=== PATIENT | female | born 1930 | race Caucasian/White ===

== ENCOUNTER 2016-07-10 08:40 | Outpatient (CLI) | payer MEDICARE | END 2016-07-10 08:41 | disposition home or self-care (01) | DX: I10 Essential (primary) hypertension (principal); E78.5 Hyperlipidemia, unspecified; M81.0 Age-related osteoporosis without current pathological fracture ==

== ENCOUNTER 2018-02-27 04:04 | Outpatient (CLI) | payer MEDICARE | END 2018-02-27 04:05 | disposition critical access hospital (66) | LOC: EMS 04:04 | PROVIDERS: ATTEND Surgery | DX: R06.02 Shortness of breath (principal) | CPT/HCPCS: A0425; A0427 ==

== ENCOUNTER 2018-02-27 04:22 | Emergency (ER) | payer MEDICARE ==
--- NOTE | 2018-02-27 04:44 | ED Physician Documentation ---
History of Present Illness - Stated complaint Stated Complaint: SOA - Chief complaint Chief Complaint: Resp - Additonal information Additional information: 87-year-old female presents the emergency department with dyspnea on exertion which started this morning. The patient called EMS and EMS found the patient quite dyspneic and the patient was found to be hypoxic at 85% and required supplemental oxygen. Presently, the patient feels improved. The patient denies peripheral edema. The patient denies chest pain or any arm pain or neck pain. The patient denies recent URI symptoms, fevers, cough or peripheral edema. Symptoms are described as severe. No specific triggering factors. No other associated symptoms Review of Systems Constitutional: denies: Fever Eyes: denies: Discharge Ears: denies: Ear pain Nose: denies: Congestion Throat: denies: Sore throat Cardiac: denies: Chest pain / pressure Respiratory: reports: Dyspnea GI: denies: Abdominal Pain : denies: Dysuria Skin: denies: Lesions Musculoskeletal: denies: Neck pain Neurologic: denies: Generalized weakness Psychiatric: denies: Hallucinations Immunocompromised: denies: Chemotherapy PD PAST MEDICAL HISTORY - Past Medical History Cardiovascular: None Respiratory: None Endocrine/Autoimmune: None Psych: None Musculoskeletal: Osteoporosis - Past Surgical History General: Appendectomy, 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 - Present Medications Home Medications: Ambulatory Orders Medication Instructions Recorded Confirmed Brimonidine Tartrate 10 ml OP 02/27/18 02/27/18 Hydrocodone/Acetaminophen [Vicodin 1 each PO 02/27/18 5-300 mg Tablet] Prednisolone [Millipred] 4 mg PO 02/27/18 Spironolactone 25 mg PO 02/27/18 hydrOXYzine HCl [Hydroxyzine HCl] 25 mg PO 02/27/18 raNITIdine [Zantac] 150 mg PO DAILY 02/27/18 02/27/18 - Allergies Allergies/Adverse Reactions: Allergies Allergy/AdvReac Type Severity Reaction Status Date / Time No Known Drug Allergies Allergy Verified 02/27/18 04:28 PD ED PE NORMAL - General General: Alert and oriented X 3. No: No acute distress (Frail 87-year-old female who appears acutely short of breath) - HEENT HEENT: Atraumatic, PERRL, EOMI, Ears normal - Neck Neck: Supple, no meningeal sign - Cardiac Cardiac: RRR, Strong equal pulses - Respiratory Respiratory: No respiratory distress Results - Vitals Vitals: Vital Signs - 24 hr 02/27/18 02/27/18 02/27/18 04:23 04:37 04:51 Temperature 36.8 C Heart Rate 110 H 112 H 109 H Respiratory 37 H 25 H 32 H Rate Blood Pressure 132/110 H 132/102 H 148/74 H O2 Saturation 93 92 93 02/27/18 02/27/18 05:28 05:50 Temperature Heart Rate 103 H 102 H Respiratory 20 24 Rate Blood Pressure 160/112 H O2 Saturation 92 96 Oxygen O2 Source Nasal cannula Oxygen Flow Rate 3 - EKG (time done) 04:31 Rate: Rate (enter#) Rhythm: Sinus tachycardia Intervals: Normal [place] QRS: Normal Ischemia: Non specific changes - Labs Labs: Laboratory Tests 02/27/18 02/27/18 02/27/18 04:40 04:45 04:45 WBC 12.8 H RBC 4.77 Hgb 14.2 Hct 43.9 MCV 92.0 MCH 29.8 MCHC 32.4 RDW 13.7 Plt Count 241 MPV 7.9 Neut # (Auto) 9.7 H Lymph # (Auto) 1.3 L Glynn # (Auto) 1.2 H Eos # (Auto) 0.5 Baso # (Auto) 0.2 H Absolute Nucleated RBC 0.01 Nucleated RBC % 0.0 PT 11.1 INR 1.0 APTT 23.7 L VBG pH VBG pCO2 VBG pO2 VBG HCO3 VBG Total CO2 VBG O2 Saturation VBG Base Excess VBG Total Hgb 15.3 VBG Oxyhemoglobin 82 L VBG Carboxyhemoglobin 1.4 VBG Methemoglobin 0.1 Sodium Potassium Chloride Carbon Dioxide Anion Gap BUN Creatinine Estimated GFR (MDRD) Glucose Lactic Acid Calcium Total Bilirubin AST ALT Alkaline Phosphatase Total Creatine Kinase Troponin I B-Natriuretic Peptide Total Protein Albumin Globulin Albumin/Globulin Ratio Lipase 02/27/18 02/27/18 02/27/18 04:45 04:45 04:45 WBC RBC Hgb Hct MCV MCH MCHC RDW Plt Count MPV Neut # (Auto) Lymph # (Auto) Glynn # (Auto) Eos # (Auto) Baso # (Auto) Absolute Nucleated RBC Nucleated RBC % PT INR APTT VBG pH VBG pCO2 VBG pO2 VBG HCO3 VBG Total CO2 VBG O2 Saturation VBG Base Excess VBG Total Hgb VBG Oxyhemoglobin VBG Carboxyhemoglobin VBG Methemoglobin Sodium 140 Potassium 4.0 Chloride 105 Carbon Dioxide 25 Anion Gap 10.0 BUN 29 H Creatinine 1.3 H Estimated GFR (MDRD) 39 L Glucose 105 H Lactic Acid Calcium 9.5 Total Bilirubin 0.6 AST 23 ALT 15 Alkaline Phosphatase 45 Total Creatine Kinase 54 Troponin I 0.42 B-Natriuretic Peptide 255 H Total Protein 6.4 L Albumin 3.8 Globulin 2.6 Albumin/Globulin Ratio 1.5 Lipase 35 02/27/18 02/27/18 04:45 04:45 WBC RBC Hgb Hct MCV MCH MCHC RDW Plt Count MPV Neut # (Auto) Lymph # (Auto) Glynn # (Auto) Eos # (Auto) Baso # (Auto) Absolute Nucleated RBC Nucleated RBC % PT INR APTT VBG pH 7.299 L VBG pCO2 49.4 VBG pO2 50.0 H VBG HCO3 23.7 VBG Total CO2 25.2 VBG O2 Saturation 83.6 H VBG Base Excess -3.2 L VBG Total Hgb VBG Oxyhemoglobin VBG Carboxyhemoglobin VBG Methemoglobin Sodium Potassium Chloride Carbon Dioxide Anion Gap BUN Creatinine Estimated GFR (MDRD) Glucose Lactic Acid 1.9 Calcium Total Bilirubin AST ALT Alkaline Phosphatase Total Creatine Kinase Troponin I B-Natriuretic Peptide Total Protein Albumin Globulin Albumin/Globulin Ratio Lipase - Rads (name of study) CXR Radiology: Final report received (IMPRESSION: Stable negative 2-view chest radiography. ) PD MEDICAL DECISION MAKING - ED course ED course: The patient's shortness of breath appears to be secondary to acute coronary syndrome. The patient was treated in the emergency department with aspirin, Nitropaste and Lovenox and oxygen. On reevaluation the patient is resting comfortably and appears to be improved. The case was discussed with our hospitalist who recommends transfer to a center with cardiology for further management of the patient's acute coronary syndrome. The case was discussed with the hospitalist at [facility] Dr. Gomez who accepts the patient onto his service. - Sepsis Event Vital Signs: Vital Signs - 24 hr 02/27/18 02/27/18 02/27/18 04:23 04:37 04:51 Temperature 36.8 C Heart Rate 110 H 112 H 109 H Respiratory 37 H 25 H 32 H Rate Blood Pressure 132/110 H 132/102 H 148/74 H O2 Saturation 93 92 93 02/27/18 02/27/18 05:28 05:50 Temperature Heart Rate 103 H 102 H Respiratory 20 24 Rate Blood Pressure 160/112 H O2 Saturation 92 96 Oxygen O2 Source Nasal cannula Oxygen Flow Rate 3 Departure - Departure Disposition: 02 Transfer Acute Care Hosp Clinical Impression: ACS (acute coronary syndrome), Hypoxia, ALTMAN (dyspnea on exertion) Condition: Fair
[2018-02-27 05:12] LABS: VBG BASE EXCESS -3.2 mmol/L (-2 - +2); VBG PCO2 49.4 mmHg (41-51); VBG PH 7.299 (7.31-7.41); VBG TOTAL CO2 25.2 mmol/L (24-29)
[2018-02-27 05:14] LABS: PT - PROTHROMBIN TIME 11.1 secs (9.9-12.6)
[2018-02-27 05:17] LABS: BASOPHILS # (AUTO) 0.2 10^3/uL (0.0-0.1); BASOPHILS % (AUTO) 1.2 %; EOSINOPHILS # (AUTO) 0.5 10^3/uL (0.0-0.7); EOSINOPHILS % (AUTO) 3.9 %; HGB - HEMOGLOBIN 14.2 g/dL (12.0-16.0); LYMPHOCYTES # (AUTO) 1.3 10^3/uL (1.5-3.5); LYMPHOCYTES % (AUTO) 10.1 %; MEAN CORPUSCULAR HEMOGLOBIN 29.8 pg (27.0-31.0); MEAN CORPUSCULAR HGB CONC 32.4 g/dL (32.0-36.0); MEAN PLATELET VOLUME 7.9 fL (7.9-10.8); MONOCYTES # (AUTO) 1.2 10^3/uL (0.0-1.0); MONOCYTES % (AUTO) 9.2 %; NEUTROPHILS # (AUTO) 9.7 10^3/uL (1.5-6.6); NEUTROPHILS % (AUTO) 75.6 %; PLT - PLATELET COUNT 241 10^3/uL (130-450); RED BLOOD COUNT 4.77 10^6/uL (4.20-5.40); RED CELL DISTRIBUTION WIDTH 13.7 % (12.0-15.0); WHITE BLOOD COUNT 12.8 x10^3/uL (4.8-10.8)
[2018-02-27 05:19] LABS: ALBUMIN 3.8 g/dL (3.2-5.5); ALBUMIN/GLOBULIN RATIO 1.5 (1.0-2.2); BILIRUBIN,TOTAL 0.6 mg/dL (0.2-1.0); CALCIUM 9.5 mg/dL (8.5-10.3); CREATININE 1.3 mg/dL (0.4-1.0); TOTAL PROTEIN 6.4 g/dL (6.7-8.2)
[2018-02-27] MEDS ORDERED: ENOXAPARIN 60 MG/0.6 ML SYRINGE SUBQ STA (05:29)
[2018-02-27] MEDS ORDERED: NITROGLYCERIN 2% PASTE TOP STA (05:29)
[2018-02-27] MEDS ORDERED: ASPIRIN 325 MG TABLET PO STA (05:29)
--- NOTE | 2018-02-27 05:30 | XRAY Report ---
Reason: sob Procedure Date: 02/27/2018 Accession Number: [id number] / [id number] Procedure: XR - Chest 2 View X-Ray CPT Code: 63421 FULL RESULT: EXAM: CHEST RADIOGRAPHY EXAM DATE: 02/27/2018 05:23 AM. CLINICAL HISTORY: Short of breath COMPARISON: XR CHEST PA AND LAT 01/08/2010 4:07 AM. TECHNIQUE: 2 views. FINDINGS: Lungs/Pleura: No focal opacities evident. No pleural effusion. No pneumothorax. Normal volumes. Mediastinum: Heart and mediastinal contours are unremarkable. Other: None. IMPRESSION: Stable negative 2-view chest radiography. RADIA
[2018-02-27 07:27] VITALS: BP 125/90
== END 2018-02-27 07:40 | disposition short-term general hospital (02) ==
LOC: EDUNIT# → ED 04:22
DX: I24.9 Acute ischemic heart disease, unspecified (principal); R09.02 Hypoxemia; R06.00 Dyspnea, unspecified; R00.0 Tachycardia, unspecified
CPT/HCPCS: 36415; 71046; 80053; 82375; 82550; 82803; 83605; 83690; 83880; 84484; 85025; 85610; 85730; 87040; 93005; 96372; 99284; 99285; A9270; J1650

== ENCOUNTER 2018-12-07 14:30 | Outpatient (CLI) | payer MEDICARE ==
--- NOTE | 2018-12-07 15:41 | XRAY Report ---
Reason: DYSPNEA ON EXERTION Procedure Date: 12/07/2018 Accession Number: [id number] / [id number] Procedure: WCP - Chest 2 View X-Ray CPT Code: 29158 FULL RESULT: EXAM: CHEST RADIOGRAPHY EXAM DATE: 12/07/2018 02:41 PM. CLINICAL HISTORY: DYSPNEA ON EXERTION. COMPARISON: 02/27/2018. TECHNIQUE: 2 views. FINDINGS: Lungs/Pleura: No focal opacities evident. No pleural effusion. No pneumothorax. Normal volumes. Mediastinum: Heart and mediastinal contours are unremarkable. Other: Multilevel degenerative change in the spine. Calcification in the aorta. IMPRESSION: Clear lungs. No acute findings. RADIA
== END 2018-12-07 14:31 | disposition home or self-care (01) ==
LOC: DI.WCP 14:30
PROVIDERS: ATTEND Family Medicine
DX: R06.09 Other forms of dyspnea (principal)
CPT/HCPCS: 71046

== ENCOUNTER 2018-12-16 07:45 | Outpatient (CLI) | payer MEDICARE | END 2018-12-16 07:46 | disposition home or self-care (01) | LOC: DI 07:45 | PROVIDERS: ATTEND Family Medicine | DX: I26.99 Other pulmonary embolism without acute cor pulmonale (principal); I27.20 Pulmonary hypertension, unspecified; I07.1 Rheumatic tricuspid insufficiency | CPT/HCPCS: 93306 ==

== ENCOUNTER 2019-03-23 09:45 | Outpatient (CLI) | payer MEDICARE ==
--- NOTE | 2019-03-24 10:46 | MRI Report ---
Reason: LOW BACK PAIN Procedure Date: 03/23/2019 Accession Number: [id number] / [id number] Procedure: MRI - Lumbar Spine W/O CPT Code: FULL RESULT: EXAM: MRI LUMBAR SPINE WITHOUT CONTRAST EXAM DATE: 03/23/2019 11:16 AM. CLINICAL HISTORY: LOW BACK PAIN. COMPARISON: Lumbar spine MRI 04/25/2014. TECHNIQUE: Multiplanar, multisequence T1-weighted and fluid-sensitive sequences of the lumbar spine from T12 to S1 without contrast. Other: None. FINDINGS: Spinal Canal: The conus terminates at L2. The conus medullaris and cauda equina are unremarkable. Alignment: Grade 1 retrolisthesis of L1 and L2, L2 on L3, and L3 on L4, unchanged. Bone Marrow: Five [id number] lumbar vertebral bodies are assumed. No fractures. No osseous lesions. Mixed Modic type I and II endplate degenerative changes throughout the lumbar spine. Disk Levels/Facets: T12-L1: Shallow broad-based disk bulge and moderate facet arthropathy results in mild central canal stenosis without foraminal stenosis. L1-L2: Severe intervertebral disk height loss. Shallow broad-based disk-osteophyte complex and moderate facet arthropathy results in mild central canal and bilateral foraminal stenosis. Unchanged. L2-L3: Severe intervertebral disk height loss. Broad-based disk-osteophyte complex and severe facet arthropathy results in mild central canal and bilateral foraminal stenosis. Unchanged. L3-L4: Severe intervertebral disk height loss. Shallow broad-based disk-osteophyte complex and severe right facet arthropathy results in mild central canal stenosis with moderate right and mild left foraminal stenosis. Disk material impinges upon the exiting right L3 nerve root. Unchanged. L4-L5: Severe intervertebral disk height loss. A broad-based disk-osteophyte complex asymmetric to the left foraminal region and moderate facet arthropathy results in mild central canal stenosis with moderate left and mild right foraminal stenosis. Unchanged. L5-S1: Severe intervertebral disk height loss. Broad-based disk-osteophyte complex and moderate facet arthropathy results in new moderate right and mild left foraminal stenosis without central canal stenosis. Musculature: Normal. No edema or fatty atrophy. Other: The partially visualized retroperitoneum is unremarkable. IMPRESSION: 1. Moderate to severe multilevel lumbar degenerative disk disease and facet arthropathy, progressed at the level of L5-S1, where there is now moderate right and mild left foraminal stenosis, but otherwise essentially unchanged. There is mild central canal stenosis from T12-L4. Foraminal stenosis is moderate on the right at L3-L4, where disk material impinges upon the exiting right L3 nerve root, moderate on the left at L4-L5, and moderate on the right at L5-S1. Comment: The following findings are so common in adults without low back pain that while we report their presence, they must be interpreted with caution and in the context of the clinical situation. (Reference Evank et al, Spine 2001) Prevalence of findings in patients without low back pain: Disk degeneration (any evidence): 92% Disk desiccation/T2 signal loss: 83% Disk height loss: 56% Disk bulge: 64% Disk protrusion: 32% Annular tear/high intensity zone: 38% RADIA
== END 2019-03-23 09:46 | disposition home or self-care (01) ==
LOC: DI 09:45
PROVIDERS: ATTEND Physical Medicine & Rehabilitation
DX: M51.36 Other intervertebral disc degeneration, lumbar region (principal); M48.061 Spinal stenosis, lumbar region without neurogenic claudication; M51.37 Other intervertebral disc degeneration, lumbosacral region; M48.07 Spinal stenosis, lumbosacral region; M47.816 Spondylosis without myelopathy or radiculopathy, lumbar region; M47.817 Spondylosis without myelopathy or radiculopathy, lumbosacral region; M43.16 Spondylolisthesis, lumbar region
CPT/HCPCS: 72148

== ENCOUNTER 2019-06-14 11:11 | Outpatient (CLI) | payer MEDICARE | END 2019-06-14 11:12 | disposition critical access hospital (66) | LOC: EMS 11:11 | PROVIDERS: ATTEND Surgery | DX: R06.02 Shortness of breath (principal); R07.0 Pain in throat; R05 Cough | CPT/HCPCS: A0425; A0427 ==

== ENCOUNTER 2019-06-14 11:31 | Observation (INO) | payer MEDICARE ==
--- NOTE | 2019-06-14 11:51 | ED Physician Documentation ---
PD HPI DYSPNEA - Stated complaint Stated Complaint: SOA - Chief complaint Chief Complaint: Resp - History obtained from History obtained from: Patient, EMS - History of Present Illness Timing - onset: How many days ago ( She has had a cough wheezing and dyspnea over the last several days. She had recently been visiting in [place] in May and developed trouble breathing while there. It was suburb of [facility]. Her daughter says she was hospitalized and diagnosed with congestive failure. As she improved it was suggested that she return home away from the [facility]. She was started on spironolactone. Otherwise no BP med or such. She has been home now for over a week and started with some coughing wheezing and dyspnea the last several days. She has not had any pedal edema. She does have a prior history of A. fib I believe and had been on a blood thinner and that was changed to Eliquis from Pradaxa.) Timing - onset during: Light activity Timing - details: Gradual onset, Still present, Waxing and waning Inciting event(s): URI, Immobilization/travel. No: Out of meds, Exercise Improved by: Rest. No: Sitting up Associated symptoms: Cough, Wheezing, Bilateral edema (She had some leg edema while in [place] but that has improved since returning home.). No: Fever, Hemoptysis, Chest pain / discomfort Recently seen: Emergency Dept, Admitted (She was in the hospital in [place]. Still trying to track down old records. Reportedly diagnosed with CHF.) Review of Systems Constitutional: reports: Myalgias, Fatigue. denies: Fever Nose: reports: Congestion Throat: denies: Sore throat Cardiac: denies: Chest pain / pressure, Palpitations Respiratory: reports: Dyspnea, Cough, Wheezing GI: denies: Abdominal Pain, Nausea, Vomiting, Diarrhea, Bloody / black stool Musculoskeletal: denies: Neck pain, Back pain Neurologic: reports: Generalized weakness. denies: Focal weakness, Numbness, Near syncope, Altered mental status, Headache Endocrine: denies: Weight loss Immunocompromised: denies: Immunocompromised PD PAST MEDICAL HISTORY - Past Medical History Cardiovascular: Pulmonary embolism (December 2018 on Pradaxa,a nd changed to Eliquis in [place] few weeks ago. 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 - Present Medications Home Medications: Ambulatory Orders Medication Instructions Recorded Confirmed Brimonidine Tartrate 10 ml OP 02/27/18 02/27/18 Hydrocodone/Acetaminophen [Vicodin 1 each PO 02/27/18 5-300 mg Tablet] Prednisolone [Millipred] 4 mg PO 02/27/18 Spironolactone 25 mg PO 02/27/18 hydrOXYzine HCL [Hydroxyzine HCl] 25 mg PO 02/27/18 raNITIdine [Zantac] 150 mg PO DAILY 02/27/18 02/27/18 - Allergies Allergies/Adverse Reactions: Allergies Allergy/AdvReac Type Severity Reaction Status Date / Time No Known Drug Allergies Allergy Verified 06/14/19 11:40 - Social History Does the pt smoke?: No Smoking Status: Never smoker Does the pt drink ETOH?: No Does the pt have substance abuse?: No - POLST Patient has POLST: No PD ED PE NORMAL - Vitals Vital signs reviewed: Yes - General General: Alert and oriented X 3, Well developed/nourished, Other (She is having audible wheeze and also auscultatory wheeze diffusely without any coarse sounds. There is minimal leg edema in both ankles. There is no calf tenderness. There is skin tenderness generally. She is tachycardic and an increased respiratory rate. She is not hypoxic.) - HEENT HEENT: Pharynx benign. No: Moist mucous membranes - Neck Neck: Supple, no meningeal sign, No adenopathy, No JVD - Cardiac Cardiac: No murmur. No: RRR (regular but tachycardic) - Respiratory Respiratory: No: Clear bilaterally (Diffuse expiratory wheezing. There is some inspiratory wheezing is noted as well. There is no coarse sounds. There are no fine crackles. She is not orthopneic.) - Abdomen Abdomen: Normal bowel sounds, Soft, Non tender - Female Female : Deferred - Rectal Rectal: Other (Stool is brown-colored without any note of blood or melena. Guaiac to our card is obtained and sent to the lab) - Back Back: No CVA TTP - Derm Derm: Normal color - Extremities Extremities: No tenderness to palpate, Normal ROM s pain, No calf tenderness / cord (No calf tenderness per se. She has tenderness on the pretibial area on both sides and her daughter says she commonly has leg tenderness in that area. There is minimal edema in both ankles.) - Neuro Neuro: Alert and oriented X 3, No sensory deficit, Normal speech Results - Vitals Vitals: Vital Signs - 24 hr 06/14/19 06/14/19 06/14/19 11:34 12:28 13:42 Temperature 36.1 C L Heart Rate 107 H 114 H 107 H Respiratory 32 H 36 H 32 H Rate Blood Pressure 151/79 H O2 Saturation 100 06/14/19 06/14/19 14:37 15:45 Temperature Heart Rate 106 H 108 H Respiratory 26 H 26 H Rate Blood Pressure 135/46 H O2 Saturation 94 Oxygen O2 Source Room air - EKG (time done) 12:12 Rate: Rate (enter#) (104) Rhythm: Sinus tachycardia Talmage: Normal Intervals: Normal CA QRS: Normal Ischemia: Normal ST segments. No: ST elevation c/w ischemia, ST depression - Labs Labs: Microbiology 06/14/19 14:56 Occult Blood - Final Stool Laboratory Tests 06/14/19 06/14/19 06/14/19 12:24 12:24 12:24 WBC 10.4 RBC 4.05 L Hgb 8.0 L Hct 28.3 L MCV 69.9 L MCH 19.8 L MCHC 28.3 L RDW 18.7 H Plt Count 586 H MPV 9.1 Neut # (Auto) 7.5 H Lymph # (Auto) 1.2 L Howell # (Auto) 1.1 H Eos # (Auto) 0.4 Baso # (Auto) 0.1 Absolute Nucleated RBC 0.00 Nucleated RBC % 0.0 Manual Slide Review Indicated WBC Morphology NORMAL APPEARANCE Platelet Estimate INCREASED (>450,000) Platelet Morphology NORMAL APPEARANCE RBC Morph Micro Appear 1+ TEARDROP CELLS PT 17.4 H INR 1.6 H APTT 28.9 Sodium 138 Potassium 4.1 Chloride 105 Carbon Dioxide 24 Anion Gap 9.0 BUN 27 H Creatinine 1.9 H Estimated GFR (MDRD) 25 L Glucose 118 H Calcium 9.5 Magnesium 2.0 Total Bilirubin 0.5 AST 25 ALT 24 Alkaline Phosphatase 55 Troponin I High Sens B-Natriuretic Peptide Total Protein 6.3 L Albumin 3.3 Globulin 3.0 Albumin/Globulin Ratio 1.1 Lipase 45 RSV Rapid 01/08/20 01/08/20 01/08/20 12:24 12:24 14:33 WBC RBC Hgb Hct MCV MCH MCHC RDW Plt Count MPV Neut # (Auto) Lymph # (Auto) Howell # (Auto) Eos # (Auto) Baso # (Auto) Absolute Nucleated RBC Nucleated RBC % Manual Slide Review WBC Morphology Platelet Estimate Platelet Morphology RBC Morph Micro Appear PT INR APTT Sodium Potassium Chloride Carbon Dioxide Anion Gap BUN Creatinine Estimated GFR (MDRD) Glucose Calcium Magnesium Total Bilirubin AST ALT Alkaline Phosphatase Troponin I High Sens 18.7 H* B-Natriuretic Peptide 97 Total Protein Albumin Globulin Albumin/Globulin Ratio Lipase RSV Rapid Negative - Rads (name of study) chest xray Radiology: Prelim report reviewed (No infiltrates nor signs of congestive failure. Normal-appearing chest x-ray), See rad report PD MEDICAL DECISION MAKING - ED course Complexity details: reviewed results (The patient does not have any signs of CHF based on exam nor chest x-ray. Her BNP is also normal. She does have history of pulmonary emboli and traveled recently but does not have any calf tenderness and is already on a anticoagulant Eliquis. Her creatinine level is elevated and her GFR is very low so I did not do any angiogram at this time. She had been taking her anticoagulant. Her BNP and troponin are both negative. She does have cough with progressive wheezing and dyspnea and sounds clinically more likely to be a viral illness. She does have some stepwise improvement with nebulizer treatments. She is given a dose of steroids as well as medication for cough. She is not hypoxic but still has general wheezing. Her breathing rate has improved and she is appearing more comfortable. I still do not think she is clinically improved well enough. She is anemic And the initial guaiac card from the lab says occult positive blood.), considered differential (CHF vs URI/wheezing vs COPD. On anticoag and gradual symptoms for few days. Should not be PE. ), d/w patient Departure - Departure Disposition: ED Place in Observation Clinical Impression: Wheezing, Anticoagulant long-term use, Stool guaiac positive Dyspnea Qualifiers: Dyspnea type: shortness of breath Qualified Code(s): R06.02 - Shortness of yang th Anemia Qualifiers: Anemia type: unspecified type Qualified Code(s): D64.9 - Anemia, unspecified Upper respiratory infection Qualifiers: URI type: unspecified URI Qualified Code(s): J06.9 - Acute upper respiratory infection, unspecified Condition: Stable Record reviewed to determine appropriate education?: Yes
[2019-06-14] MEDS ORDERED: ALBUTEROL NEB 2.5 MG/3 ML INH STA ×3 (12:15→15:59)
[2019-06-14 12:29] LABS: BASOPHILS # (AUTO) 0.1 10^3/uL (0.0-0.1); BASOPHILS % (AUTO) 0.6 %; EOSINOPHILS # (AUTO) 0.4 10^3/uL (0.0-0.7); EOSINOPHILS % (AUTO) 3.7 %; LYMPHOCYTES # (AUTO) 1.2 10^3/uL (1.5-3.5); LYMPHOCYTES % (AUTO) 11.4 %; MEAN CORPUSCULAR HEMOGLOBIN 19.8 pg (27.0-31.0); MEAN CORPUSCULAR HGB CONC 28.3 g/dL (32.0-36.0); MEAN CORPUSCULAR VOLUME 69.9 fL (81.0-99.0); MEAN PLATELET VOLUME 9.1 fL (7.9-10.8); MONOCYTES # (AUTO) 1.1 10^3/uL (0.0-1.0); MONOCYTES % (AUTO) 10.6 %; NEUTROPHILS # (AUTO) 7.5 10^3/uL (1.5-6.6); NEUTROPHILS % (AUTO) 72.3 %; PLT - PLATELET COUNT 586 10^3/uL (130-450); RED BLOOD COUNT 4.05 10^6/uL (4.20-5.40); RED CELL DISTRIBUTION WIDTH 18.7 % (12.0-15.0); WHITE BLOOD COUNT 10.4 x10^3/uL (4.8-10.8)
[2019-06-14 12:53] LABS: INR 1.6 (0.8-1.2); PT - PROTHROMBIN TIME 17.4 secs (9.9-12.6)
[2019-06-14 13:00] LABS: PARTIAL THROMBOPLASTIN TIME 28.9 secs (24.9-33.3)
[2019-06-14] MEDS ORDERED: CYCLOBENZAPRINE 10 MG TABLET PO STA (13:23)
[2019-06-14] MEDS ORDERED: IPRATROPIUM/ALBUTEROL 3 ML NEB INH STA (13:23)
[2019-06-14] MEDS ORDERED: DEXAMETHASONE 10 MG/ML VIAL IVP STA (13:23)
[2019-06-14 13:27] LABS: PLATELET MORPHOLOGY NORMAL APPEARANCE (NORMAL)
[2019-06-14 13:28] LABS: ALBUMIN 3.3 g/dL (3.2-5.5); ALBUMIN/GLOBULIN RATIO 1.1 (1.0-2.2); BILIRUBIN,TOTAL 0.5 mg/dL (0.2-1.0); CALCIUM 9.5 mg/dL (8.5-10.3); CREATININE 1.9 mg/dL (0.4-1.0); PLATELET ESTIMATE, MANUAL INCREASED (>450,000) (NORMAL); TOTAL PROTEIN 6.3 g/dL (6.7-8.2)
--- NOTE | 2019-06-14 13:44 | XRAY Report ---
Reason: cough Procedure Date: 06/14/2019 Accession Number: [id number] / [id number] Procedure: XR - Chest 2 View X-Ray CPT Code: 99354 Final Report FULL RESULT: EXAM: CHEST RADIOGRAPHY EXAM DATE: 06/14/2019 01:21 PM. CLINICAL HISTORY: Cough. COMPARISON: CHEST 2 VIEW 12/07/2018 2:23 PM. TECHNIQUE: 2 views. FINDINGS: Lungs/Pleura: No focal opacities evident. No peribronchial cuffing or interstitial abnormality. No pleural effusion. No pneumothorax. Normal volumes. Mediastinum: Heart and mediastinal contours are unremarkable. Mild aortic arch calcification. Other: Minimal right convex thoracic spine curvature. IMPRESSION: Negative chest. Lungs are clear. RADIA
[2019-06-14] MEDS ORDERED: MAGNESIUM SULFATE 2 GRAM 2 GM/50 ML BAG IV ONE (14:03)
[2019-06-14 14:49] LABS: RESPIRATORY SYNCYTIAL VIRUS Negative (Negative)
[2019-06-14] MEDS ORDERED: SODIUM CHLORIDE FLUSH 0.9% 10 ML SYRINGE IVP PRN (16:26)
--- NOTE | 2019-06-14 17:57 | HISTORY & PHYSICAL EXAMINATION ---
Chief Complaint - Chief Complaint Chief Complaint: shortness of breath, came from clinic Chest Pain Admission HPI - Admitted From Admitted from: ED - History Obtained From Records Reviewed: RN notes reviewed, Old records reviewed History obtained from: Patient, Family (POA-Melaine (daughter)) Exam limitations: Clinical condition, Other (profound dementia) - History of Present Illness Pain/Problem Location Description: shortness of breath, cough Severity at the worst: reports: Moderate Context-Pain started w/: reports: Exertion, Inspiration, Movement Timing: reports: Gradual onset Duration: reports: Days: (2) Improved with: reports: Rest, Oxygen Worsened by: reports: Exertion, Inspiration, Movement Associated symptoms: reports: Shortness of air, Feeling faint / dizzy, General Weakness, Cough HPI Comment/Other: Janet Nicole is a pleasant 89-year old female with a past medical history of essential hypertension, saddle PE, hyperlipidemia, osteoporosis, PVD, polymyalgia rheumatica, diverticular disease, lumbar DJD, restless leg syndrome, headaches, GERD, urinary and stool incontinence, and memory loss. The patient was just in [place] for a family visit and left [place] on 2 separate occasions from the hospital in which she was hospitalized for COPD exacerbation (cough). Since arriving back to the [place] on June 08, the patient has had a progressive cough, activity intolerance, orthopnea and loss of appetite. She has been living at [facility] since February of 2019, and recently has been needing more help with medications and cares. After an office visit with Dr. Blanco (PCP) today, a non-urgent ambulance brought the patient to the ED due to shortness of breath, activity intolerance, increased peripheral swelling, and tachycardia. Upon arrival to the ED, labs show BNP 97, normal WBC count, h emoglobin 8.0, hematocrit 28.3, MCV 69.9, platelets 586, BUN 27, creatinine 1.9, GFR 25, troponin 18.7, with no other abnormalities. Imaging shows a clear chest x-ray. A stool sample shows +occult guiac. On exam, +murmur, mild JVD, abdominal edema, no BLE edema, evidence of longstanding poor perfusion with discoloration of BLEs, profoundly dry mucous membranes with a dry cracked tongue. The patient is being admitted to observation for RADHA, anemia, and symptom management. PMH/PSH - Past Medical History Cardiovascular: positive: Hypertension, High cholesterol, Pulmonary embolism, Murmur Respiratory: positive: Shortness of breath, Other (saddle pulmonary emboli) Endocrine/Autoimmune: positive: None GI: positive: GERD, GI bleed, Chronic diarrhea, Diverticulitis, Other (stool incontinence) : positive: Incontinence, Frequency HEENT: positive: Chronic vision loss, Chronic hearing loss Psych: positive: Other (Alzheimer's dementia) Musculoskeletal: positive: Osteoporosis, Fatigue, Chronic back pain Derm: positive: None MRSA Hx?: No - Past Surgical History General: positive: Appendectomy, Bowel surgery, Colonoscopy, Other (colostomy for sigmoid resection/diverting colostomy from perforated diverticulum (2010)) /WATER QUALITY TESTER: positive: Hysterectomy, Oophrectomy Social & Family Hx - Living Situation Living Arrangement: Assisted living ([facility]) Living Situation: With caregiver(s) - Social History Does the pt smoke?: No Smoking Status: Former smoker (age [age]) Does the pt drink ETOH?: No Does the pt have substance abuse?: No - POLST Patient has POLST: No POLST Status: DNR - Family History Family History: Mother: , Father: , Sister: , Brother: Family History Comment/Other: Both parents in their 90's, 6 siblings with unknown history. Meds/Allgy - Home Medications Home Medications: Ambulatory Orders Medication Instructions Recorded Confirmed Spironolactone 25 mg PO DAILY 02/27/18 06/14/19 raNITIdine [Zantac] 150 mg PO BID 02/27/18 06/14/19 Apixaban [Eliquis] 5 mg PO BID 06/14/19 06/14/19 Brimonidine 0.2% Ophth Drops 1 drops EACHEYE TID 06/14/19 [Alphagan P 0.2% Ophth Drops] Cyclobenzaprine HCl 5 mg PO TID PRN 06/14/19 06/14/19 Furosemide 20 mg PO DAILY 06/14/19 06/14/19 Latanoprost [Xalatan] 1 drops EACHEYE QPM 06/14/19 Metoprolol Succinate [Toprol Xl] 25 mg PO DAILY 06/14/19 06/14/19 oxyCODONE [Roxicodone] 5 mg PO TID PRN 06/14/19 06/14/19 predniSONE [Deltasone] 4 mg PO DAILYWM 06/14/19 06/14/19 - Allergies Allergies/Adverse Reactions: Allergies Allergy/AdvReac Type Severity Reaction Status Date / Time No Known Drug Allergies Allergy Verified 06/14/19 11:40 Review of Systems - Constitutional Constitutional: reports: Fatigue, Weakness, Poor appetite - Eyes Eyes: reports: Corrective lenses - Ears, Nose & Throat Ears, Nose & Throat: reports: Hearing loss, Hearing aids - Cardiovascular Cariovascular: reports: Edema, Lightheadedness, Exertional dyspnea, Decr. exercise tolerance, Orthopnea - Respiratory Respiratory: reports: Orthopnea, SOB at rest, SOB with exertion - Gastrointestinal Gastrointestinal: reports: Abdominal distention, Constipation, Diarrhea, Reflux/heartburn, Bloating, Poor appetite - Genitourinary Genitourinary: reports: Dysuria, Frequency, Urgency, Incontinence - Musculoskeletal Musculoskeletal: reports: Back pain, Limited range of motion - Integumentary Integumentary: reports: Dryness - Psychiatric Psychiatric: reports: Other (dementia) - Hematologic/Lymphatic Hematologic/Lymphatic: reports: Recurrent infections - All Other Systems All Other Systems: reports: Reviewed and negative Prior Level of Functionality: Walker, no recent falls, lives at [facility]-moving to assisted living after this hospital stay. Exam - Vital Signs Reviewed Vital Signs: Yes Vital Signs: Vital Signs x48h Temp Pulse Resp BP Pulse Ox 06/14/19 16:58 36.8 C 112 H 24 136/78 H 93 06/14/19 16:13 112 H 22 06/14/19 15:45 108 H 26 H 135/46 H 94 06/14/19 14:37 106 H 26 H 06/14/19 13:42 107 H 32 H 06/14/19 12:28 114 H 36 H 06/14/19 11:34 36.1 C L 107 H 32 H 151/79 H 100 - Physical Exam General Appearance: positive: Alert, Moderate distress Eyes Bilateral: positive: No lid inflammation ENT: positive: Pharyngeal erythema, Dry mucous membranes (dry, cracked tongue, crusty lips) Neck: positive: Trachea midline, Stiff neck Respiratory: positive: Chest non-tender, Wheezes, Rhonchi Cardiovascular: positive: Tachycardia, JVD present, Systolic murmur, Decreased pulse(s) Peripheral Pulses: positive: 1+ Abdomen: positive: Non-tender, Nml bowel sounds, Hepatomegaly, Other (rounded, soft) Back: positive: Nml inspection Skin: positive: No rash, Warm, Dry, Pallor Extremities: positive: Pedal edema, Other (Discoloration of BLEs, flakey skin, non-pitting edema) Neurologic/Psychiatric: positive: Disoriented to person, Disoriented to place, Disoriented to time, Weakness, Sensory loss, Depressed mood/affect Reflexes: Bicep (R): 3+, Bicep (L): 3+, Ankle (R): 3+, Ankle (L): 3+ Results - Lab Results Lab results reviewed: Yes Fish Bones: 06/14/19 12:24 06/14/19 19:08 Other Lab Results: Lab Results x24hrs 06/14/19 06/14/19 06/14/19 Range/Units 14:33 14:33 12:24 WBC (4.8-10.8) x10^3/uL RBC (4.20-5.40) 10^6/uL Hgb (12.0-16.0) g/dL Hct (37.0-47.0) % MCV (81.0-99.0) fL MCH (27.0-31.0) pg MCHC (32.0-36.0) g/dL RDW (12.0-15.0) % Plt Count (130-450) 10^3/uL MPV (7.9-10.8) fL Neut # (Auto) (1.5-6.6) 10^3/uL Lymph # (Auto) (1.5-3.5) 10^3/uL Titus # (Auto) (0.0-1.0) 10^3/uL Eos # (Auto) (0.0-0.7) 10^3/uL Baso # (Auto) (0.0-0.1) 10^3/uL Absolute Nucleated RBC x10^3/uL Nucleated RBC % /100WBC Manual Slide Review WBC Morphology (NORMAL) Platelet Estimate (NORMAL) Platelet Morphology (NORMAL) RBC Morph Micro Appear (NORMAL) PT (9.9-12.6) secs INR (0.8-1.2) APTT (24.9-33.3) secs Sodium (135-145) mmol/L Potassium (3.5-5.0) mmol/L Chloride (101-111) mmol/L Carbon Dioxide (21-32) mmol/L Anion Gap (6-13) BUN (6-20) mg/dL Creatinine (0.4-1.0) mg/dL Estimated GFR (MDRD) (>89) Glucose (70-100) mg/dL Calcium (8.5-10.3) mg/dL Magnesium (1.7-2.8) mg/dL Total Bilirubin (0.2-1.0) mg/dL AST (10-42) IU/L ALT (10-60) IU/L Alkaline Phosphatase (42-121) IU/L Troponin I High Sens (2.3-14.8) ng/L B-Natriuretic Peptide 97 (5-100) pg/mL Total Protein (6.7-8.2) g/dL Albumin (3.2-5.5) g/dL Globulin (2.1-4.2) g/dL Albumin/Globulin Ratio (1.0-2.2) Lipase (22-51) U/L Influenza A (Rapid) Negative (Negative) Influenza B (Rapid) Negative (Negative) RSV Rapid Negative (Negative) 06/14/19 06/14/19 06/14/19 Range/Units 12:24 12:24 12:24 WBC (4.8-10.8) x10^3/uL RBC (4.20-5.40) 10^6/uL Hgb (12.0-16.0) g/dL Hct (37.0-47.0) % MCV (81.0-99.0) fL MCH (27.0-31.0) pg MCHC (32.0-36.0) g/dL RDW (12.0-15.0) % Plt Count (130-450) 10^3/uL MPV (7.9-10.8) fL Neut # (Auto) (1.5-6.6) 10^3/uL Lymph # (Auto) (1.5-3.5) 10^3/uL Titus # (Auto) (0.0-1.0) 10^3/uL Eos # (Auto) (0.0-0.7) 10^3/uL Baso # (Auto) (0.0-0.1) 10^3/uL Absolute Nucleated RBC x10^3/uL Nucleated RBC % /100WBC Manual Slide Review WBC Morphology (NORMAL) Platelet Estimate (NORMAL) Platelet Morphology (NORMAL) RBC Morph Micro Appear (NORMAL) PT 17.4 H (9.9-12.6) secs INR 1.6 H (0.8-1.2) APTT 28.9 (24.9-33.3) secs Sodium 138 (135-145) mmol/L Potassium 4.1 (3.5-5.0) mmol/L Chloride 105 (101-111) mmol/L Carbon Dioxide 24 (21-32) mmol/L Anion Gap 9.0 (6-13) BUN 27 H (6-20) mg/dL Creatinine 1.9 H (0.4-1.0) mg/dL Estimated GFR (MDRD) 25 L (>89) Glucose 118 H (70-100) mg/dL Calcium 9.5 (8.5-10.3) mg/dL Magnesium 2.0 (1.7-2.8) mg/dL Total Bilirubin 0.5 (0.2-1.0) mg/dL AST 25 (10-42) IU/L ALT 24 (10-60) IU/L Alkaline Phosphatase 55 (42-121) IU/L Troponin I High Sens 18.7 H* (2.3-14.8) ng/L B-Natriuretic Peptide (5-100) pg/mL Total Protein 6.3 L (6.7-8.2) g/dL Albumin 3.3 (3.2-5.5) g/dL Globulin 3.0 (2.1-4.2) g/dL Albumin/Globulin Ratio 1.1 (1.0-2.2) Lipase 45 (22-51) U/L Influenza A (Rapid) (Negative) Influenza B (Rapid) (Negative) RSV Rapid (Negative) 06/14/19 Range/Units 12:24 WBC 10.4 (4.8-10.8) x10^3/uL RBC 4.05 L (4.20-5.40) 10^6/uL Hgb 8.0 L (12.0-16.0) g/dL Hct 28.3 L (37.0-47.0) % MCV 69.9 L (81.0-99.0) fL MCH 19.8 L (27.0-31.0) pg MCHC 28.3 L (32.0-36.0) g/dL RDW 18.7 H (12.0-15.0) % Plt Count 586 H (130-450) 10^3/uL MPV 9.1 (7.9-10.8) fL Neut # (Auto) 7.5 H (1.5-6.6) 10^3/uL Lymph # (Auto) 1.2 L (1.5-3.5) 10^3/uL Titus # (Auto) 1.1 H (0.0-1.0) 10^3/uL Eos # (Auto) 0.4 (0.0-0.7) 10^3/uL Baso # (Auto) 0.1 (0.0-0.1) 10^3/uL Absolute Nucleated RBC 0.00 x10^3/uL Nucleated RBC % 0.0 /100WBC Manual Slide Review Indicated WBC Morphology NORMAL APPEARANCE (NORMAL) Platelet Estimate INCREASED (>450,000) (NORMAL) Platelet Morphology NORMAL APPEARANCE (NORMAL) RBC Morph Micro Appear 1+ TEARDROP CELLS (NORMAL) PT (9.9-12.6) secs INR (0.8-1.2) APTT (24.9-33.3) secs Sodium (135-145) mmol/L Potassium (3.5-5.0) mmol/L Chloride (101-111) mmol/L Carbon Dioxide (21-32) mmol/L Anion Gap (6-13) BUN (6-20) mg/dL Creatinine (0.4-1.0) mg/dL Estimated GFR (MDRD) (>89) Glucose (70-100) mg/dL Calcium (8.5-10.3) mg/dL Magnesium (1.7-2.8) mg/dL Total Bilirubin (0.2-1.0) mg/dL AST (10-42) IU/L ALT (10-60) IU/L Alkaline Phosphatase (42-121) IU/L Troponin I High Sens (2.3-14.8) ng/L B-Natriuretic Peptide (5-100) pg/mL Total Protein (6.7-8.2) g/dL Albumin (3.2-5.5) g/dL Globulin (2.1-4.2) g/dL Albumin/Globulin Ratio (1.0-2.2) Lipase (22-51) U/L Influenza A (Rapid) (Negative) Influenza B (Rapid) (Negative) RSV Rapid (Negative) - Diagnostic Imaging Results Diagnostic Imaging Results: positive: Final report reviewed Diagnostic Imaging Results Comments: EXAM: CHEST RADIOGRAPHY EXAM DATE: 06/14/2019 01:21 PM IMPRESSION: Negative chest. Lungs are clear. CP/CHF Plan - Echo Plan to order an echo?: Yes - Plan Patient Problems: All Active Problems RADHA (acute kidney injury) (Acute) ALTMAN (dyspnea on exertion) (Acute) Elevated troponin (Acute) Hypoxia (Acute) Dyspnea (Acute) Wheezing (Acute) Anemia (Acute) Upper respiratory infection (Acute) Anticoagulant long-term use (Acute) Stool guaiac positive (Acute) PVD (peripheral vascular disease) (Chronic) Alzheimer's dementia (Chronic) Essential hypertension (Chronic) Pulmonary hypertension (Chronic) Hyperlipidemia (Chronic) DJD (degenerative joint disease) (Chronic) Diastolic dysfunction with chronic heart failure (Chronic) CHF exacerbation (Acute) Plan: Respiratory care for the patient's wheezing, shortness of breath, and supplemental oxygen if needed IV fluids tonight, then recheck BMP in the AM Resume spironolactone in the AM Echocardiogram Holding Eliquis due to +guiac stool, repeat testing Routine labs Social work consult, PT/OT Core Measures - Anticipated LOS I expect patient to be DC'd or transferred within 96 hours.: Yes - DVT/VTE - Prophylaxis VTE/DVT Device ordered at admit?: Yes VTE/DVT Prophylaxis med ordered at admit?: Yes - Stroke - Rehab Assessment Rehab services assessment to be ordered?: Yes - AMI - Statin at Admit Aspirin Prescribed on Admit: Yes
[2019-06-14] MEDS ORDERED: oxyCODONE 5 MG TABLET PO PRN (18:11)
[2019-06-14] MEDS: METOPROLOL SUCCINATE 25 MG TABLET PO SCH (18:43)
[2019-06-14] MEDS ORDERED: LEVALBUTEROL 1.25 MG/3 ML NEB INH PRN (18:54)
[2019-06-14] MEDS ORDERED: ACETAMINOPHEN 325 MG TABLET PO PRN (18:57)
[2019-06-14 19:29] LABS: CALCIUM 9.1 mg/dL (8.5-10.3); CREATININE 1.9 mg/dL (0.4-1.0)
[2019-06-14] MEDS: LEVALBUTEROL 1.25 MG/3 ML NEB INH SCH (20:02)
[2019-06-14] MEDS: SODIUM CHLORIDE FLUSH 0.9% 10 ML SYRINGE IVP SCH (21:48)
[2019-06-14] MEDS: SODIUM CHLORIDE 0.9% 1,000 ML IV SCH (21:49)
[2019-06-15 05:05] LABS: BASOPHILS % (AUTO) 0.2 %; EOSINOPHILS % (AUTO) 0.2 %; LYMPHOCYTES % (AUTO) 17.8 %; MEAN CORPUSCULAR HEMOGLOBIN 19.5 pg (27.0-31.0); MEAN CORPUSCULAR HGB CONC 28.5 g/dL (32.0-36.0); MEAN CORPUSCULAR VOLUME 68.5 fL (81.0-99.0); MEAN PLATELET VOLUME 9.2 fL (7.9-10.8); MONOCYTES # (AUTO) 0.4 10^3/uL (0.0-1.0); MONOCYTES % (AUTO) 6.9 %; NEUTROPHILS # (AUTO) 4.1 10^3/uL (1.5-6.6); NEUTROPHILS % (AUTO) 73.7 %; PLT - PLATELET COUNT 536 10^3/uL (130-450); RED BLOOD COUNT 3.59 10^6/uL (4.20-5.40); RED CELL DISTRIBUTION WIDTH 18.6 % (12.0-15.0); WHITE BLOOD COUNT 5.6 x10^3/uL (4.8-10.8)
[2019-06-15 05:27] LABS: ALBUMIN 2.9 g/dL (3.2-5.5); BILIRUBIN,TOTAL 0.5 mg/dL (0.2-1.0); CALCIUM 8.5 mg/dL (8.5-10.3); CREATININE 1.5 mg/dL (0.4-1.0); MAGNESIUM 2.5 mg/dL (1.7-2.8); TOTAL PROTEIN 5.8 g/dL (6.7-8.2)
[2019-06-15 05:58] LABS: PLATELET ESTIMATE, MANUAL INCREASED (>450,000) (NORMAL); PLATELET MORPHOLOGY NORMAL APPEARANCE (NORMAL)
--- NOTE | 2019-06-15 07:52 | ADVANCE CARE PLANNING NOTE ---
Advance Care Planning - Planning Encounter Date: 06/15/19 Time: 07:51 Purpose: Establish goals of care Provide treatments to improve quality of life Parties in Attendance: The patient-Janet Nicole, her daughter (POA)-Melanie, and myself-MIRTHA Butler Decisional Capacity of the Patient: The patient is disorientated and cannot make her own medical decisions. Brain imaging from 2014 showed generalized cortical atrophy, moderate compensatory ventriclar enlargement, moderate scattered nonspecific white matter disease & bilateral pontine white matter disease. - Encounter Subjective/Patient's Story: The patient was very symptomatic upon first arriving to the hospital, but soon removed her IV stating, "I don't want to be hooked up to anything, I am going to head home". The patient's daughter, Melanie who is her POA notes that her mother left against medical advise at least twice in [place] just a few weeks ago. She has been recently prescribed oxycodone and muscle relaxers which may be causing more confusion. Melanie notes that she is most worried for her mother's safety, which is what guided their move to [facility] in February. Since living at [facility], it has become more apparent that the patient may require more help due to her progressive dementia with lacking self care, severe short term memory loss, and safety awareness. Melanie states that she is her mother's POA and that her mother would never choose to be dependent on a ventilator, on hemodialysis, or undergo any invasive procedures. She confirms her mother's code status of DNR/DNI, but with medical treatment of infections and ok for hospital stays if needed. Objective/Medical Story: Janet Nicole is a pleasant 89-year old female with a past medical history of essential hypertension, saddle PE, hyperlipidemia, osteoporosis, PVD, polymyalgia rheumatica, diverticular disease, lumbar DJD, restless leg syndrome, headaches, GERD, urinary and stool incontinence, and memory loss. The patient was just in [place] for a family visit and left AMA on 2 separate occasions from the hospital in which she was hospitalized for COPD exacerbation (cough). Since arriving back to the [place] on June 08, the patient has had a progressive cough, activity intolerance, orthopnea and loss of appetite. She has been living at [facility] since February of 2019, and recently has been needing more help with medications and cares. After an office visit with Dr. Blanco (PCP) today, a non-urgent ambulance brought the patient to the ED due to shortness of breath, activity intolerance, increased peripheral swelling, and tachycardia. Upon arrival to the ED, labs show BNP 97, normal WBC count, hemoglobin 8.0, hematocrit 28.3, MCV 69.9, platelets 586, BUN 27, creatinine 1.9, GFR 25, troponin 18.7, with no other abnormalities. Imaging shows a clear chest x-ray. A stool sample shows +occult guiac. On exam, +murmur, mild JVD, abdominal edema, no BLE edema, evidence of longstanding poor perfusion with discoloration of BLEs, profoundly dry mucous membranes with a dry cracked tongue. The patient is being admitted to observation for RADHA, anemia, and sympt om management. Goals of Care: Palliative care consult, quality of life focused cares Plan: Obtain echo Give PRBCs Reduce medications, if applicable Code Status: Do Not Attempt Resuscitation Time spent on advance care plannin
[2019-06-15] MEDS: SPIRONOLACTONE 25 MG TABLET PO SCH (08:31)
[2019-06-15] MEDS: SODIUM CHLORIDE FLUSH 0.9% 10 ML SYRINGE IVP SCH ×2 (08:31→16:58)
[2019-06-15] MEDS: SODIUM CHLORIDE 0.9% 1,000 ML IV SCH ×2 (08:32→17:13)
[2019-06-15] MEDS: METOPROLOL SUCCINATE 25 MG TABLET PO SCH ×2 (08:44→17:12)
[2019-06-15] MEDS: LEVALBUTEROL 1.25 MG/3 ML NEB INH SCH ×3 (09:05→16:38)
[2019-06-15] MEDS ORDERED: ZINC OXIDE 20% OINT 30 GM TUBE TOP PRN (11:30)
--- NOTE | 2019-06-15 15:47 | PHARMACY PROGRESS NOTE ---
- Best Possible Medication History Admit Date and Time: 06/14/19 3026 Processed by: Pharmacy (Amy TomlinsonD (secondary - Amy MarroquinD)) Medication History completed: Yes Patient Interview: Completed Secondary Source(s): Written medication list (eye meds), Insurance records As the person ultimately responsible for medication therapy, providers are able to order a medication from an existing home medication list in [facility] via the "Reconcile Routine" prior to Confirmation of that medication by call center support consultant. Such practice is discouraged except when the physician, in their clinical judgment, deems that a medical need exists for a medication without regard to previous use.
[2019-06-15 15:58] LABS: MEAN CORPUSCULAR HEMOGLOBIN 19.8 pg (27.0-31.0); MEAN CORPUSCULAR HGB CONC 28.3 g/dL (32.0-36.0); MEAN PLATELET VOLUME 9.4 fL (7.9-10.8); RED BLOOD COUNT 3.53 10^6/uL (4.20-5.40); RED CELL DISTRIBUTION WIDTH 18.6 % (12.0-15.0); WHITE BLOOD COUNT 9.9 x10^3/uL (4.8-10.8)
[2019-06-15] MEDS ORDERED: ACETAMINOPHEN 325 MG TABLET PO ONE (16:58)
--- NOTE | 2019-06-15 16:58 | PROVIDER PROGRESS NOTE ---
Subjective - Prog Note Date Prog Note Date: 06/15/19 Prog Note Time: 12:00 - Subjective Pt reports feeling: Improved Subjective: Janet states that IVs are "in her way" and wishes to return home or at least get out of bed. Unable to get a reliable answer to review of system exam questions. Daughter, Melanie was called to assist, and is happy with an upcoming Palliative care meeting with Lisa Foster later today. Current Medications - Current Medications Current Medications: Active Medications: Acetaminophen (Tylenol) 650 mg PO Q4HR PRN PRN Reason: Pain or Fever > 38C (100.4F) Levalbuterol HCl (Xopenex) 1.25 mg INH Q4H PRN PRN Reason: Shortness of Air/Wheezing Levalbuterol HCl (Xopenex) 1.25 mg INH RTQID [facility] Last Admin: 06/16/19 00:15 Dose: Not Given Metoprolol Succinate (Toprol Xl) 12.5 mg PO BIDWM [facility] Last Admin: 06/15/19 17:12 Dose: 12.5 mg Multi-Ingredient Ointment (Zinc Oxide) 1 applic TOP PRN PRN PRN Reason: Skin Care Oxycodone HCl (Roxicodone) 5 mg PO TID PRN PRN Reason: PAIN Patient Own Medication Brimonidine 0.2% Ophth Drops [ Alphagan P 0.2% Ophth Drops] 1 each EACHEYE BID [facility] Last Admin: 06/15/19 18:38 Dose: 1 each Patient Own Med Dorzolamide/Timolol Ophth Soln [Cosopt] 1 each EACHEYE BID [facility] Last Admin: 06/15/19 18:55 Dose: 1 each Patient Own Med Latanoprost 0.005% Ophth Drops [Xalatan Ophth Drops] 1 Drops) 1 each EACHEYE QPM [facility] Last Admin: 06/15/19 18:55 Dose: 1 each Sodium Chloride (Normal Saline Flush 0.9%) 10 ml IVP PRN PRN PRN Reason: NEEDED PER PROVIDER ORDERS Sodium Chloride (Normal Saline Flush 0.9%) 10 ml IVP 0100,0900,1700 [facility] Last Admin: 06/15/19 16:58 Dose: Not Given Spironolactone (Aldactone) 25 mg PO DAILY [facility] Last Admin: 06/15/19 08:31 Dose: Not Given Trazodone HCl (Desyrel) 50 mg PO QPM [facility] Last Admin: 06/15/19 21:19 Dose: 50 mg Spironolactone 25 mg PO DAILY 02/27/18 raNITIdine [Zantac] 150 mg PO BID 02/27/18 Apixaban [Eliquis] 5 mg PO BID 06/14/19 Brimonidine 0.2% Ophth Drops [Alphagan P 0.2% Ophth Drops] 1 drops EACHEYE BID 06/14/19 Cyclobenzaprine HCl 5 mg PO TID PRN 06/14/19 Furosemide 20 mg PO DAILY 06/14/19 Metoprolol Succinate [Toprol Xl] 25 mg PO DAILY 06/14/19 oxyCODONE [Roxicodone] 5 mg PO TID PRN 06/14/19 predniSONE [Deltasone] 4 mg PO DAILYWM 06/14/19 Dorzolamide/Timolol Ophth Soln [Cosopt] 1 drops EACHEYE BID 06/15/19 Latanoprost 0.005% Ophth Drops [Xalatan Ophth Drops] 1 drops EACHEYE QPM 06/15/19 Objective - Vital Signs/Intake & Output Reviewed Vital Signs: Yes Vital Signs: Vital Signs x48h Temp Pulse Pulse Resp BP Pulse Ox 06/15/19 16:38 72 24 06/15/19 15:55 36.6 C 80 20 130/83 H 95 06/15/19 13:55 36.3 C L 87 32 H 100 06/15/19 13:29 87 32 H 06/15/19 09:06 81 20 Intake & Output: Intake & Output 06/12/19 06/13/19 06/14/19 06/15/19 23:59 23:59 23:59 23:59 Intake Total 150 1560 Output Total 50 402 Balance 100 1158 - Objective General Appearance: positive: Alert, Moderate distress, Anxious Eyes: OU Conjunctivae pale, OU Scleral icterus ENT: positive: Pharyngeal erythema, Dry mucous membranes Neck: positive: Stiff neck Respiratory: positive: No respiratory distress, Rhonchi Cardiovascular: positive: Irregularly irregular, Systolic murmur, Decreased pulse(s) Peripheral Pulses: 1+ Radial (R), 1+ Radial (L) Abdomen: positive: Non-tender, Hepatomegaly, Abnml bowel sounds, Other (rounded, soft) Back: positive: Nml inspection Skin: positive: No rash, Warm, Dry, Cyanosis, Pallor Extremities: negative: Non-tender (exquisite tenderness noted to BLE-baseline, not tolerating SCD devices) Neurologic/Psychiatric: positive: Disoriented to person, Disoriented to place, Disoriented to time, Weakness, Sensory loss, Slurred/abnml speech, Depressed mood/affect, Other (states several things which are out of context, confusion is ongoing) Reflexes: Bicep (R): 3+, Bicep (L): 3+ - Lab Results Fish Bones: 06/16/19 05:15 06/16/19 05:15 Other Labs: Lab Results x24hrs 06/15/19 06/15/19 06/15/19 Range/Units 15:53 04:30 04:30 WBC 9.9 5.6 (4.8-10.8) x10^3/uL RBC 3.53 L 3.59 L (4.20-5.40) 10^6/uL Hgb 7.0 L* 7.0 L* (12.0-16.0) g/dL Hct 24.7 L 24.6 L (37.0-47.0) % MCV 70.0 L 68.5 L (81.0-99.0) fL MCH 19.8 L 19.5 L (27.0-31.0) pg MCHC 28.3 L 28.5 L (32.0-36.0) g/dL RDW 18.6 H 18.6 H (12.0-15.0) % Plt Count 556 H 536 H (130-450) 10^3/uL MPV 9.4 9.2 (7.9-10.8) fL Neut # (Auto) 4.1 (1.5-6.6) 10^3/uL Lymph # (Auto) 1.0 L (1.5-3.5) 10^3/uL Briscoe # (Auto) 0.4 (0.0-1.0) 10^3/uL Eos # (Auto) 0.0 (0.0-0.7) 10^3/uL Baso # (Auto) 0.0 (0.0-0.1) 10^3/uL Absolute Nucleated RBC 0.00 x10^3/uL Nucleated RBC % 0.0 /100WBC Manual Slide Review Indicated WBC Morphology NORMAL APPEARANCE (NORMAL) Platelet Estimate INCREASED (>450,000) (NORMAL) Platelet Morphology NORMAL APPEARANCE (NORMAL) RBC Morph Micro Appear 1+ TEARDROP CELLS (NORMAL) Sodium 136 (135-145) mmol/L Potassium 4.5 (3.5-5.0) mmol/L Chloride 107 (101-111) mmol/L Carbon Dioxide 23 (21-32) mmol/L Anion Gap 6.0 (6-13) BUN 27 H (6-20) mg/dL Creatinine 1.5 H (0.4-1.0) mg/dL Estimated GFR (MDRD) 33 L (>89) Glucose 124 H (70-100) mg/dL Calcium 8.5 (8.5-10.3) mg/dL Magnesium 2.5 (1.7-2.8) mg/dL Total Bilirubin 0.5 (0.2-1.0) mg/dL AST 25 (10-42) IU/L ALT 23 (10-60) IU/L Alkaline Phosphatase 48 (42-121) IU/L Troponin I High Sens (2.3-14.8) ng/L Total Protein 5.8 L (6.7-8.2) g/dL Albumin 2.9 L (3.2-5.5) g/dL Globulin 2.9 (2.1-4.2) g/dL Albumin/Globulin Ratio 1.0 (1.0-2.2) 06/14/19 06/14/19 Range/Units 19:08 19:08 WBC (4.8-10.8) x10^3/uL RBC (4.20-5.40) 10^6/uL Hgb (12.0-16.0) g/dL Hct (37.0-47.0) % MCV (81.0-99.0) fL MCH (27.0-31.0) pg MCHC (32.0-36.0) g/dL RDW (12.0-15.0) % Plt Count (130-450) 10^3/uL MPV (7.9-10.8) fL Neut # (Auto) (1.5-6.6) 10^3/uL Lymph # (Auto) (1.5-3.5) 10^3/uL Briscoe # (Auto) (0.0-1.0) 10^3/uL Eos # (Auto) (0.0-0.7) 10^3/uL Baso # (Auto) (0.0-0.1) 10^3/uL Absolute Nucleated RBC x10^3/uL Nucleated RBC % /100WBC Manual Slide Review WBC Morphology (NORMAL) Platelet Estimate (NORMAL) Platelet Morphology (NORMAL) RBC Morph Micro Appear (NORMAL) Sodium 136 (135-145) mmol/L Potassium 4.1 (3.5-5.0) mmol/L Chloride 102 (101-111) mmol/L Carbon Dioxide 23 (21-32) mmol/L Anion Gap 11.0 (6-13) BUN 26 H (6-20) mg/dL Creatinine 1.9 H (0.4-1.0) mg/dL Estimated GFR (MDRD) 25 L (>89) Glucose 197 H (70-100) mg/dL Calcium 9.1 (8.5-10.3) mg/dL Magnesium (1.7-2.8) mg/dL Total Bilirubin (0.2-1.0) mg/dL AST (10-42) IU/L ALT (10-60) IU/L Alkaline Phosphatase (42-121) IU/L Troponin I High Sens 17.1 H* (2.3-14.8) ng/L Total Protein (6.7-8.2) g/dL Albumin (3.2-5.5) g/dL Globulin (2.1-4.2) g/dL Albumin/Globulin Ratio (1.0-2.2) ABX Reporting Has patient been on IV antibiotics over the past 48 hours?: No Assessment/Plan - Problem List (1) RADHA (acute kidney injury) Impression: -Baseline serum creatinine was 1.3, up to 1.9 on admission -Now down to 1.5 after nearly 1L of IVFs-Holding diuretics -Mucous membranes appearance has improved -Routine labs, resume diuretics in the next 1-2 days Anemia -H/H remains 7.0/24.6 -Patient is symptomatic with poor activity tolerance, short of breath, requires oxygen -Nail beds cyanotic, evidence of poor perfusion -Waited for Palliative care consult to initiate blood transfusion, now ordered for 1 unit PRBCs -Consider lasix after unit of blood, routine labs Stool guaiac positive -1st sample from the ED was positive, follow up sample from today is negative -Likely from diverticulosis leaking from prior use of Eliquis -Stopped Eliquis, re-check guiac stool in 24 hours Dyspnea on exertion -Baseline, patient requires no supplemental oxygen -Now on 1-3L per nasal cannula -Patient takes off her oxygen frequently due to confusion Elevated troponin -18.7, then 17.1 (remained flat) -Likely due to demand ischemia/stress -Blood pressure and heart rate remain WNL -Monitor for chest pain, EKG as needed Counseling regarding goals of care -Patient's POA, Melanie (daughter) was called who wishes to meet with Palliative care, Lisa Foster today -Consult initiated, await conclusions -On admission, Melanie confirmed DNR/DNI and plans to bring in paperwork for POA status Diastolic dysfunction with chronic heart failure -Echo (preliminary) shows diastolic dysfunction, LVH, and preserved EF of 65% -Rate control and diuresis after anemia improves -Monitor for fluid overload, daily weights, I/O, resume diuretics when appropriate Pulmonary hypertension -Patient with a history of COPD, unknown TRISH -Pulmonary emboli (saddle) in 2018 also contributes -Echo shows an RVSP at rest of 45 mmHg -Resume diuretics in the next 1-2 days or after blood PVD (peripheral vascular disease) -SCDs if tolerated, encouraged activity, avoid long periods in the chair Alzheimer's dementia -Patient is disorientated, is NOT decisional -Activated POA is Melanie (daughter) -Patient cannot speak for herself, therefore, cannot leave against medical adv ise -Brain MRI from 2014 showed Stool incontinence -Now chronic, likely due to a progression of her dementia -Frequent nursing cares, monitor for infection Medical non-compliance -Patient was reported to have left AMA from [facility] -Patient is not to speak for herself and her activated POA is her daughter, Melanie who will be bringing in the paperwork Essential hypertension -Previously on spironolactone, lasix, & BB -Continues on metoprolol, adding in lasix after blood later this evening Hyperlipidemia -currently not treated given the severity of her dementia and potential side effects of a statin DJD (degenerative joint disease) -Noted on imaging reports, continue oxycodone to be used sparingly to prevent worsening confusion Narcotic dependence -Recently prescribed oxycodone, but was adjusted down on her last hospital stay - ongoing pain due to DJD, dementia, inactivity
[2019-06-15] MEDS ORDERED: SODIUM CHLORIDE 0.9% 500 ML IV ONE (16:59)
[2019-06-15] MEDS ORDERED: diphenhydrAMINE 25 MG CAPSULE PO ONE (16:59)
--- NOTE | 2019-06-15 17:43 | CONSULTATION NOTE ---
Palliative Care Consultation - Referral Referring Provider: Radha SHANNON Time of Visit: [id number]; [phone] Referral setting: Hospitalized patient Referral Reason: Dementia/COPD/CHF/ Goals of care - Information Sources Records reviewed: RN notes reviewed, Previous records reviewed History/Review of Systems obtained from: Patient, Family (daughter Rebecca provided most of history) Exam limitations: Clinical condition (patient presents with mod dementia;) - History of Present Illness Brief History of Present Illness: This is an 89-year-old woman who has unfortunate events, that presents with worsening COPD, progressive dementia, and now with anemia unknown etiology. Unfortunately this is been a progression of multiple issues., Patient started this journey with a trip to [place] on 05/27, she is convinced her family she could travel to [place] to be with her son and his family, who were here from [place]. Unclear exactly how the story unfolded, but unfortunately she missed her playing, and had a very long day and sat at the airport. I suspect given her underlying dementia, she did not have any wherewithal to problem solve around this, my understanding is a son finally called and they found her at a gait which has been changed, and when she arrived she presented with hallucinations, muscle spasms, severe pain and dehydrated and most likely without any of her meds. She was admitted to the hospital, given her impulsivity and poor insight into her current cognitive and physical status, she left [place] actually twice, and returned back to [place] on 06/08. Her daughter Melanie, who lives in [place], came and has been providing her support. Patient is continued to decline, and had developed further progressive cough, and and follow-up with her PCP, was brought to the ED due to shortness of breath, lower extremity swelling, and unstable vital signs. She has been hospitalized since 06/14, and has been found to be severely anemic. They are doing further work-up on her, for guaiac positive stool, plus want to give her a unit of blood the patient has been somewhat resistant to care. On presentation, patient can speak in full sentences, she does socially engaged to make eye contact. She does not like me to talk to her daughter without addressing her. We did discuss in the context that she is in the hospital she does seem to recognize this. She does like living [facility] she is told me, and is looking forward to returning there. Daughter reports though that she does not participate in activities, and is needing more support. When asked the patient why she is in the hospital, she is unable to tell me that she is ill, what her underlying illnesses are, or what they are treating her for. She defers to her daughter for any kind of historical or review of systems quest ions, she is unable to recall with any kind of accuracy her last few weeks. Her daughter reports she had done a search of her room, and found multiple medication bottles, and perceives most likely she would put them away and forget and refill them. Patient does have ongoing chronic back pain, has had a vertebroplasty, and has been on oxycodone 5 mg 3 times daily. Patient does report a history of back pain, though denies pain at time of visit. They had titrated her down to one half tab 3 times a day and sometimes 2 times a day since she has been home. Daughter does report she has had a change in personality, she has been more argumentative, and as she looks back is seeing some of the decline. Patient is [place], though has not lived in [place] for over 11 years. She came to the [facility] to her second in 1999. After he , she has been [id number], but decided to settle down on [facility]. She was living in a townhouse, is quite clear she was not doing very well, and was moved to [facility] in February 2018. She has done fairly well there. She had been independent prior to this for medications, they were making arrangements for medication management and more support. She has been dependent on her walker with her 4 wheeled walker, since moving in. Patient has had incontinence, over the last few weeks, this is a new symptom for the daughter. This may be a challenge to manage in that setting, as patient has very little insight into her care needs. Patient does present short of breath, with inspiratory and expiratory wheezing. She does admit is a little hard to breathe, she does have a moist cough. There was some concern whether she accept blood transfusions, but she did agree during our conversation, she does not present with decision-making capacity. She does not have insight into her illness, able to weigh benefits or burdens of medical decisions, has high impulsivity, and her decisions most likely up to this point would be considered a danger to herself as she signed herself out of hospital AMA twice in [place], only to return as she was acutely ill. Medical/Surgical History - Past Medical History Cardiovascular: reports: Hypertension, High cholesterol, Pulmonary embolism, Murmur Respiratory: reports: COPD, Shortness of breath, Other (saddle pulmonary emboli) Neuro: reports: Dementia, Headache/migraine Endocrine/Autoimmune: reports: None GI: reports: GERD, GI bleed, Chronic diarrhea, Diverticulitis, Other (stool incontinence) : reports: Incontinence, Frequency HEENT: reports: Chronic vision loss, Chronic hearing loss Psych: reports: Anxiety Musculoskeletal: reports: Osteoporosis, Fatigue, Chronic back pain Derm: reports: None MRSA Hx?: No - Past Surgical History General: reports: Appendectomy, Bowel surgery, 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 She does oversee her financial matters, her son Keegan supplements her financially to be able to be at [facility]. She had been fairly independent on arrival, with her most recent decline, and rapid functional decline they had made arrangements to have [facility] do medications, and were working out caregiving needs. Judy from [facility], will do a further assessment to be able to increase their services to meet her care needs. Family History - Family History Family History: Mother: , Father: , Other family: Alive and Well (has a daughter and two sons) Medications/Allergies - Medications Active Medication List: Active Medications Acetaminophen (Tylenol) 650 mg PO Q4HR PRN PRN Reason: Pain or Fever > 38C (100.4F) Sodium Chloride (Normal Saline 0.9%) 1,000 mls @ 100 mls/hr IV .Q10H [facility] Last Admin: 06/15/19 17:13 Dose: 100 mls/hr Levalbuterol HCl (Xopenex) 1.25 mg INH Q4H PRN PRN Reason: Shortness of Air/Wheezing Levalbuterol HCl (Xopenex) 1.25 mg INH RTQID [facility] Last Admin: 06/15/19 16:38 Dose: 1.25 mg Metoprolol Succinate (Toprol Xl) 12.5 mg PO BIDWM [facility] Last Admin: 06/15/19 17:12 Dose: 12.5 mg Multi-Ingredient Ointment (Zinc Oxide) 1 applic TOP PRN PRN PRN Reason: Skin Care Oxycodone HCl (Roxicodone) 5 mg PO TID PRN PRN Reason: PAIN Patient Own Medication Brimonidine 0.2% Ophth Drops [ Alphagan P 0.2% Ophth Drops] 1 each EACHEYE BID [facility] Patient Own Med Dorzolamide/Timolol Ophth Soln [Cosopt] 1 each EACHEYE BID [facility] Patient Own Med Latanoprost 0.005% Ophth Drops [Xalatan Ophth Drops] 1 Drops) 1 each EACHEYE QPM [facility] Sodium Chloride (Normal Saline Flush 0.9%) 10 ml IVP PRN PRN PRN Reason: NEEDED PER PROVIDER ORDERS Sodium Chloride (Normal Saline Flush 0.9%) 10 ml IVP 0100,0900,1700 [facility] Last Admin: 06/15/19 16:58 Dose: Not Given Spironolactone (Aldactone) 25 mg PO DAILY [facility] Last Admin: 06/15/19 08:31 Dose: Not Given Spironolactone 25 mg PO DAILY 02/27/18 raNITIdine [Zantac] 150 mg PO BID 02/27/18 Apixaban [Eliquis] 5 mg PO BID 06/14/19 Brimonidine 0.2% Ophth Drops [Alphagan P 0.2% Ophth Drops] 1 drops EACHEYE BID 06/14/19 Cyclobenzaprine HCl 5 mg PO TID PRN 06/14/19 Furosemide 20 mg PO DAILY 06/14/19 Metoprolol Succinate [Toprol Xl] 25 mg PO DAILY 06/14/19 oxyCODONE [Roxicodone] 5 mg PO TID PRN 06/14/19 predniSONE [Deltasone] 4 mg PO DAILYWM 06/14/19 Dorzolamide/Timolol Ophth Soln [Cosopt] 1 drops EACHEYE BID 06/15/19 Latanoprost 0.005% Ophth Drops [Xalatan Ophth Drops] 1 drops EACHEYE QPM 06/15/19 - Allergies Allergies/Adverse Reactions: Allergies Allergy/AdvReac Type Severity Reaction Status Date / Time No Known Drug Allergies Allergy Verified 06/14/19 11:40 Review of Systems - Constitutional Constitutional: reports: Fatigue - Eyes Eyes: reports: Vision loss, Corrective lenses - Ears, Nose & Throat Ears, Nose & Throat: reports: Hearing loss, Dry mouth - Cardiovascular Cardiovascular: reports: Exertional dyspnea, Decr. exercise tolerance, Orthopnea - Respiratory Respiratory: reports: Cough, Wheezing, SOB at rest, SOB with exertion - Gastrointestinal Gastrointestinal: denies: Nausea - Genitourinary Genitourinary: reports: Incontinence - Musculoskeletal Musculoskeletal: reports: Back pain, Stiffness, Muscle weakness, Assistive devices (uses 4WW) - Integumentary Integumentary: reports: Dryness - Neurological Neurological: reports: General weakness, Memory problems - Psychiatric Psychiatric: reports: Anxiety - Hematologic/Lymphatic Hematologic/Lymphatic: reports: Anemia, Recurrent infections (now on third hospitalization in one month) - All Other Systems All Other Systems: reports: Other (limited patient defers and not recall) Physical Exam - Vital Signs Vital Signs: Vital Signs x48h Temp Pulse Pulse Resp BP Pulse Ox 06/15/19 16:38 72 24 06/15/19 15:55 36.6 C 80 20 130/83 H 95 06/15/19 13:55 36.3 C L 87 32 H 100 06/15/19 13:29 87 32 H - Physical Exam General Appearance: positive: Alert, Mild distress, Anxious Eyes Bilateral: positive: Normal inspection ENT: positive: No signs of dehydration Neck: positive: No JVD, Trachea midline Cardiovascular: positive: Regular rate & rhythm Respiratory: positive: Wheezes, Rhonchi (anteriorly; clear with cough), Other (moist cough) Abdomen: positive: Soft Skin: positive: Pallor, Dryness Extremities: positive: No pedal edema Neurologic/Psychiatric: positive: Mood/affect nml, Disoriented to time, Weakness, Flat affect Palliative Care - POLST Patient has POLST: Yes POLST Status: DNR, Selective Treatment Pain: Pain unchanged, Comment (patient denies pain at time of visit; though has baseline backpain) Performance Status: Patient prior to hospitalization in May, had been ambulatory with her 4 wheeled walker, she was able to ambulate down for meals at the facility. Daughter reflects patient is not very active, does spend most the time in the room, and dislikes engaging in the activities. She reports at the facility, as she has been staying with her this last week prior to hospitalization, was only able to ambulate about senior care without needing rest period to recover. Reports she has needed help with bathing, has needed help with incontinence and assistance with dressing. - Palliative Care Discussion: When approached patient regarding illness, does not understand what is wrong with her, or why she is in the hospital. She is anxious to go back to [facility]. Patient does not express any worries or concerns, though defers to daughter frequently. Patient appears to have no insight into her current condition, presents with impulsivity, and moderate cognitive decline. Patient has had functional decline, poor short-term memory, has not been able to manage her medications unclear how she has been taking them over the last several weeks to months, poor executive function, and does appear also to have some superimposed delirium on part top of her dementia. Did meet with daughter Melanie, who is D POA, with her brother aNto Vernon as alternative forge press operator in fact. Is a fairly comprehensive D POA, and does become effective in the context when patient has disability or incompetence. Patient also has a healthcare directive, that indicates she believes is a natural process, and would like to be allowed to in peace and comfort and not have her dying artificially prolonged. The 2 things that she had marked that she would want was pain medication and to be able to at home. This was executed in 2004. Patient is a DNA R, we did discuss in the context of returning back to the community setting, to translate this would need a POLST. Patient does not present with ability to understand the nuances or complete at this point in time. Daughter does believe in the context of if the patient were of sound mind, she would not want resuscitation, we did discuss that at this point they would treat reversible conditions, though no intubation. In the context of pending decisions, Radha SHANNON joined us. Counseling was provided regarding the expected decline with her dementia, particularly the changes over the last several weeks to months. Patient had said she would accept transfusions, concerned though regarding the underlying etiology, and decision making regarding benefits and burdens of pursuing this. Given patient's underlying comorbidities, most likely would not tolerate any significant surgery or intervention, at this point in time the goal would be to focus on quality of life and weigh these decisions quite carefully as to not prolong suffering. POLST was completed with DNA R/selective treatments at this point antibiotics would be excepted, but no medically assisted nutrition. This was completed and put in her medical records as well as to return to [facility] Unfortunately daughter is been here from [place] since return from [place], she does need to return on Wednesday, and leave for [place] tomorrow afternoon. She is aware she may need to return if patient continues to do poorly, or needs further assistance and support. She is hopeful in transitioning back to [facility], they will be able to bridge the support she needs currently. Results - Lab Results Lab results reviewed: Yes Fish Bones: 06/15/19 15:53 06/15/19 04:30 Lab and Imaging Results: Lab Results x24hrs 06/15/19 06/15/19 06/15/19 Range/Units 15:55 15:53 04:30 WBC 9.9 (4.8-10.8) x10^3/uL RBC 3.53 L (4.20-5.40) 10^6/uL Hgb 7.0 L* (12.0-16.0) g/dL Hct 24.7 L (37.0-47.0) % MCV 70.0 L (81.0-99.0) fL MCH 19.8 L (27.0-31.0) pg MCHC 28.3 L (32.0-36.0) g/dL RDW 18.6 H (12.0-15.0) % Plt Count 556 H (130-450) 10^3/uL MPV 9.4 (7.9-10.8) fL Neut # (Auto) (1.5-6.6) 10^3/uL Lymph # (Auto) (1.5-3.5) 10^3/uL [place] # (Auto) (0.0-1.0) 10^3/uL Eos # (Auto) (0.0-0.7) 10^3/uL Baso # (Auto) (0.0-0.1) 10^3/uL Absolute Nucleated RBC x10^3/uL Nucleated RBC % /100WBC Manual Slide Review WBC Morphology (NORMAL) Platelet Estimate (NORMAL) Platelet Morphology (NORMAL) RBC Morph Micro Appear (NORMAL) Sodium (135-145) mmol/L Potassium (3.5-5.0) mmol/L Chloride (101-111) mmol/L Carbon Dioxide (21-32) mmol/L Anion Gap (6-13) BUN (6-20) mg/dL Creatinine (0.4-1.0) mg/dL Estimated GFR (MDRD) (>89) Glucose (70-100) mg/dL Calcium (8.5-10.3) mg/dL Magnesium (1.7-2.8) mg/dL Total Bilirubin (0.2-1.0) mg/dL AST (10-42) IU/L ALT (10-60) IU/L Alkaline Phosphatase (42-121) IU/L Troponin I High Sens (2.3-14.8) ng/L Total Protein (6.7-8.2) g/dL Albumin (3.2-5.5) g/dL Globulin (2.1-4.2) g/dL Albumin/Globulin Ratio (1.0-2.2) Blood Type A POSITIVE Blood Type Recheck A POSITIVE Antibody Screen NEGATIVE Crossmatch IS Only See Detail 06/15/19 06/15/19 06/14/19 Range/Units 04:30 04:30 19:08 WBC 5.6 (4.8-10.8) x10^3/uL RBC 3.59 L (4.20-5.40) 10^6/uL Hgb 7.0 L* (12.0-16.0) g/dL Hct 24.6 L (37.0-47.0) % MCV 68.5 L (81.0-99.0) fL MCH 19.5 L (27.0-31.0) pg MCHC 28.5 L (32.0-36.0) g/dL RDW 18.6 H (12.0-15.0) % Plt Count 536 H (130-450) 10^3/uL MPV 9.2 (7.9-10.8) fL Neut # (Auto) 4.1 (1.5-6.6) 10^3/uL Lymph # (Auto) 1.0 L (1.5-3.5) 10^3/uL [place] # (Auto) 0.4 (0.0-1.0) 10^3/uL Eos # (Auto) 0.0 (0.0-0.7) 10^3/uL Baso # (Auto) 0.0 (0.0-0.1) 10^3/uL Absolute Nucleated RBC 0.00 x10^3/uL Nucleated RBC % 0.0 /100WBC Manual Slide Review Indicated WBC Morphology NORMAL APPEARANCE (NORMAL) Platelet Estimate INCREASED (>450,000) (NORMAL) Platelet Morphology NORMAL APPEARANCE (NORMAL) RBC Morph Micro Appear 1+ TEARDROP CELLS (NORMAL) Sodium 136 136 (135-145) mmol/L Potassium 4.5 4.1 (3.5-5.0) mmol/L Chloride 107 102 (101-111) mmol/L Carbon Dioxide 23 23 (21-32) mmol/L Anion Gap 6.0 11.0 (6-13) BUN 27 H 26 H (6-20) mg/dL Creatinine 1.5 H 1.9 H (0.4-1.0) mg/dL Estimated GFR (MDRD) 33 L 25 L (>89) Glucose 124 H 197 H (70-100) mg/dL Calcium 8.5 9.1 (8.5-10.3) mg/dL Magnesium 2.5 (1.7-2.8) mg/dL Total Bilirubin 0.5 (0.2-1.0) mg/dL AST 25 (10-42) IU/L ALT 23 (10-60) IU/L Alkaline Phosphatase 48 (42-121) IU/L Troponin I High Sens (2.3-14.8) ng/L Total Protein 5.8 L (6.7-8.2) g/dL Albumin 2.9 L (3.2-5.5) g/dL Globulin 2.9 (2.1-4.2) g/dL Albumin/Globulin Ratio 1.0 (1.0-2.2) Blood Type Blood Type Recheck Antibody Screen Crossmatch IS Only 06/14/19 Range/Units 19:08 WBC (4.8-10.8) x10^3/uL RBC (4.20-5.40) 10^6/uL Hgb (12.0-16.0) g/dL Hct (37.0-47.0) % MCV (81.0-99.0) fL MCH (27.0-31.0) pg MCHC (32.0-36.0) g/dL RDW (12.0-15.0) % Plt Count (130-450) 10^3/uL MPV (7.9-10.8) fL Neut # (Auto) (1.5-6.6) 10^3/uL Lymph # (Auto) (1.5-3.5) 10^3/uL [place] # (Auto) (0.0-1.0) 10^3/uL Eos # (Auto) (0.0-0.7) 10^3/uL Baso # (Auto) (0.0-0.1) 10^3/uL Absolute Nucleated RBC x10^3/uL Nucleated RBC % /100WBC Manual Slide Review WBC Morphology (NORMAL) Platelet Estimate (NORMAL) Platelet Morphology (NORMAL) RBC Morph Micro Appear (NORMAL) Sodium (135-145) mmol/L Potassium (3.5-5.0) mmol/L Chloride (101-111) mmol/L Carbon Dioxide (21-32) mmol/L Anion Gap (6-13) BUN (6-20) mg/dL Creatinine (0.4-1.0) mg/dL Estimated GFR (MDRD) (>89) Glucose (70-100) mg/dL Calcium (8.5-10.3) mg/dL Magnesium (1.7-2.8) mg/dL Total Bilirubin (0.2-1.0) mg/dL AST (10-42) IU/L ALT (10-60) IU/L Alkaline Phosphatase (42-121) IU/L Troponin I High Sens 17.1 H* (2.3-14.8) ng/L Total Protein (6.7-8.2) g/dL Albumin (3.2-5.5) g/dL Globulin (2.1-4.2) g/dL Albumin/Globulin Ratio (1.0-2.2) Blood Type Blood Type Recheck Antibody Screen Crossmatch IS Only Impression and Recommendations - Palliative Care Impression: This is an 89-year-old woman who presents with complex multiple morbidities, as well as declining cognitive and functional status. She has had a fairly acute decline over last few weeks, including now, three hospitalizations. She presents with severe anemia, unknown etiology, exacerbated COPD, worsening dementia and delirium, as well as poor insight to her current situation. Palliative care providing support regarding definition of goals, and transition planning. Recommendations/Counseling Done: 1. Dementia with behavioral disturbances. Patient has had fairly acute decline, poor insight to her current situation, she is able to talk in full sentences, though does have poor short-term memory memory, poor executive function, is easily agitated when asked specific questions, but does cover with social skills. Patient is less been able to manage her day-to-day affairs, poor medication adherence management, has developed incontinence. This would put her at a FAST6D. Patient does not present with medical decision-making capacity, and actually can be a danger to herself as she has poor insight and has left AMA . Patient does live at [facility], this is a familiar environment to her, with familiar people and routines. Counseling provided to daughter regarding the progression of dementia, threshold for transitioning to higher levels of care, and concerns for patient's ability to manage without more oversight. 2. Anemia of unknown etiology. Patient is to receive transfusion, she did agree in the context of our conversation, though this mean that she would remember. Patient has been on Pradaxa prior to her trip to [place], most recently on Eliquis. Patient is currently on hold for anti-coag, patient with continued work-up with positive guaiac stool. Counseling initiated regarding benefits and burdens depending on the underlying etiology or reason for anti- coag, may need to consider discontinuation. Explored goals, regarding concerns with patient's frailty, taking a watch and see versus work-up which would be quite taxing on patient and her frail state. 3. Advanced care planning. Patient at this point in time the plan is to return back to [facility], patient to get evaluation in the a.m. regarding care needs. She will need a higher level of support including medication management, and personal care. Depending on where patient plans with her dementia post hospitalization, will need to continue to consider whether patient will require more supervision or higher level of care. Daughter in agreement to have palliative care follow after discharge. Will obtain outpatient referral. Time Spent: 90 minutes with greater than 50% of this done with counseling regarding goals of care, advanced care planning, disease trajectory, family meeting with daughter and hospitalist, and coordination of care with social work.
[2019-06-15] MEDS: BRIMONIDINE 0.2% EACHEYE SCH (18:38)
[2019-06-15] MEDS: TIMOLOL EACHEYE SCH (18:55)
[2019-06-15] MEDS: DORZOLAMIDE EACHEYE SCH (18:55)
[2019-06-15] MEDS ORDERED: FUROSEMIDE 20 MG/2 ML VIAL IVP STA (19:30)
--- NOTE | 2019-06-15 20:46 | XRAY Report ---
Reason: dyspnea Procedure Date: 06/15/2019 Accession Number: [id number] / [id number] Procedure: XR - Chest 1 View X-Ray CPT Code: 23646 Final Report FULL RESULT: EXAM: CHEST RADIOGRAPHY EXAM DATE: 06/15/2019 08:03 PM. CLINICAL HISTORY: Dyspnea. COMPARISON: CHEST 2 VIEW 06/14/2019 1:04 PM. TECHNIQUE: 1 view. FINDINGS: Lungs/Pleura: Mild pulmonary edema.no focal opacities evident. No pleural effusion. No pneumothorax. Mediastinum: Within exam limitations, the cardiomediastinal contour is normal. Other: None. IMPRESSION: Mild pulmonary edema. RADIA
[2019-06-15] MEDS ORDERED: LATANOPROST 0.005% EACHEYE SCH (21:00)
[2019-06-15] MEDS ORDERED: traZODone 50 MG TABLET PO SCH (21:00)
[2019-06-16] MEDS: LEVALBUTEROL 1.25 MG/3 ML NEB INH SCH (00:15)
[2019-06-16 05:35] LABS: BASOPHILS # (AUTO) 0.1 10^3/uL (0.0-0.1); BASOPHILS % (AUTO) 0.4 %; EOSINOPHILS # (AUTO) 0.2 10^3/uL (0.0-0.7); EOSINOPHILS % (AUTO) 1.4 %; HGB - HEMOGLOBIN 10.4 g/dL (12.0-16.0); LYMPHOCYTES # (AUTO) 2.9 10^3/uL (1.5-3.5); LYMPHOCYTES % (AUTO) 25.2 %; MEAN CORPUSCULAR HEMOGLOBIN 21.5 pg (27.0-31.0); MEAN CORPUSCULAR HGB CONC 30.1 g/dL (32.0-36.0); MEAN CORPUSCULAR VOLUME 71.3 fL (81.0-99.0); MEAN PLATELET VOLUME 9.1 fL (7.9-10.8); MONOCYTES # (AUTO) 0.9 10^3/uL (0.0-1.0); MONOCYTES % (AUTO) 7.4 %; NEUTROPHILS # (AUTO) 7.6 10^3/uL (1.5-6.6); NEUTROPHILS % (AUTO) 64.7 %; PLT - PLATELET COUNT 652 10^3/uL (130-450); RED BLOOD COUNT 4.84 10^6/uL (4.20-5.40); RED CELL DISTRIBUTION WIDTH 21.3 % (12.0-15.0); WHITE BLOOD COUNT 11.7 x10^3/uL (4.8-10.8)
[2019-06-16 05:48] LABS: ALBUMIN 3.4 g/dL (3.2-5.5); ALBUMIN/GLOBULIN RATIO 1.1 (1.0-2.2); BILIRUBIN,TOTAL 0.8 mg/dL (0.2-1.0); CALCIUM 8.6 mg/dL (8.5-10.3); CREATININE 1.5 mg/dL (0.4-1.0); MAGNESIUM 2.2 mg/dL (1.7-2.8); TOTAL PROTEIN 6.5 g/dL (6.7-8.2)
[2019-06-16 06:10] LABS: PLATELET ESTIMATE, MANUAL INCREASED (>450,000) (NORMAL)
--- NOTE | 2019-06-16 08:05 | PROVIDER PROGRESS NOTE ---
Subjective - Prog Note Date Prog Note Date: 06/16/19 Prog Note Time: 08:04 - Subjective Pt reports feeling: Improved Objective - Vital Signs/Intake & Output Reviewed Vital Signs: Yes Vital Signs: Vital Signs x48h Temp Pulse Resp BP Pulse Ox 06/16/19 04:45 36.7 C 71 18 125/99 H 97 Intake & Output: Intake & Output 06/13/19 06/14/19 06/15/19 06/16/19 23:59 23:59 23:59 23:59 Intake Total 150 2938.333 1.667 Output Total 50 452 Balance 100 2486.333 1.667 - Objective General Appearance: positive: Alert, Moderate distress, Anxious Eyes: OU Conjunctivae pale, OU Scleral icterus ENT: positive: Pharyngeal erythema, Dry mucous membranes - Lab Results Fish Bones: 06/16/19 05:15 06/16/19 05:15 Other Labs: Lab Results x24hrs 06/16/19 06/16/19 06/15/19 Range/Units 05:15 05:15 15:55 WBC 11.7 H (4.8-10.8) x10^3/uL RBC 4.84 (4.20-5.40) 10^6/uL Hgb 10.4 L (12.0-16.0) g/dL Hct 34.5 L (37.0-47.0) % MCV 71.3 L (81.0-99.0) fL MCH 21.5 L (27.0-31.0) pg MCHC 30.1 L (32.0-36.0) g/dL RDW 21.3 H (12.0-15.0) % Plt Count 652 H (130-450) 10^3/uL MPV 9.1 (7.9-10.8) fL Neut # (Auto) 7.6 H (1.5-6.6) 10^3/uL Lymph # (Auto) 2.9 (1.5-3.5) 10^3/uL Stewart # (Auto) 0.9 (0.0-1.0) 10^3/uL Eos # (Auto) 0.2 (0.0-0.7) 10^3/uL Baso # (Auto) 0.1 (0.0-0.1) 10^3/uL Absolute Nucleated RBC 0.00 x10^3/uL Nucleated RBC % 0.0 /100WBC Manual Slide Review Indicated Platelet Estimate INCREASED (>450,000) (NORMAL) RBC Morph Micro Appear 1+ TEARDROP CELLS (NORMAL) Sodium 138 (135-145) mmol/L Potassium 4.0 (3.5-5.0) mmol/L Chloride 105 (101-111) mmol/L Carbon Dioxide 26 (21-32) mmol/L Anion Gap 7.0 (6-13) BUN 31 H (6-20) mg/dL Creatinine 1.5 H (0.4-1.0) mg/dL Estimated GFR (MDRD) 33 L (>89) Glucose 95 (70-100) mg/dL Calcium 8.6 (8.5-10.3) mg/dL Magnesium 2.2 (1.7-2.8) mg/dL Total Bilirubin 0.8 (0.2-1.0) mg/dL AST 28 (10-42) IU/L ALT 27 (10-60) IU/L Alkaline Phosphatase 54 (42-121) IU/L Total Protein 6.5 L (6.7-8.2) g/dL Albumin 3.4 (3.2-5.5) g/dL Globulin 3.1 (2.1-4.2) g/dL Albumin/Globulin Ratio 1.1 (1.0-2.2) Blood Type A POSITIVE Blood Type Recheck Antibody Screen NEGATIVE Crossmatch IS Only See Detail 06/15/19 06/15/19 Range/Units 15:53 04:30 WBC 9.9 (4.8-10.8) x10^3/uL RBC 3.53 L (4.20-5.40) 10^6/uL Hgb 7.0 L* (12.0-16.0) g/dL Hct 24.7 L (37.0-47.0) % MCV 70.0 L (81.0-99.0) fL MCH 19.8 L (27.0-31.0) pg MCHC 28.3 L (32.0-36.0) g/dL RDW 18.6 H (12.0-15.0) % Plt Count 556 H (130-450) 10^3/uL MPV 9.4 (7.9-10.8) fL Neut # (Auto) (1.5-6.6) 10^3/uL Lymph # (Auto) (1.5-3.5) 10^3/uL Stewart # (Auto) (0.0-1.0) 10^3/uL Eos # (Auto) (0.0-0.7) 10^3/uL Baso # (Auto) (0.0-0.1) 10^3/uL Absolute Nucleated RBC x10^3/uL Nucleated RBC % /100WBC Manual Slide Review Platelet Estimate (NORMAL) RBC Morph Micro Appear (NORMAL) Sodium (135-145) mmol/L Potassium (3.5-5.0) mmol/L Chloride (101-111) mmol/L Carbon Dioxide (21-32) mmol/L Anion Gap (6-13) BUN (6-20) mg/dL Creatinine (0.4-1.0) mg/dL Estimated GFR (MDRD) (>89) Glucose (70-100) mg/dL Calcium (8.5-10.3) mg/dL Magnesium (1.7-2.8) mg/dL Total Bilirubin (0.2-1.0) mg/dL AST (10-42) IU/L ALT (10-60) IU/L Alkaline Phosphatase (42-121) IU/L Total Protein (6.7-8.2) g/dL Albumin (3.2-5.5) g/dL Globulin (2.1-4.2) g/dL Albumin/Globulin Ratio (1.0-2.2) Blood Type Blood Type Recheck A POSITIVE Antibody Screen Crossmatch IS Only ABX Reporting Has patient been on IV antibiotics over the past 48 hours?: No Assessment/Plan - Problem List (1) RADHA (acute kidney injury) Impression: -Baseline serum creatinine was 1.3, up to 1.9 on admission -Now down to 1.5 after nearly 1L of IVFs-Holding diuretics -Mucous membranes appearance has improved -Routine labs, resume diuretics in the next 1-2 days Anemia -H/H remains 7.0/24.6 -Patient is symptomatic with poor activity tolerance, short of breath, requires oxygen -Nail beds cyanotic, evidence of poor perfusion -Waited for Palliative care consult to initiate blood transfusion, now ordered for 1 unit PRBCs -Consider lasix after unit of blood, routine labs Stool guaiac positive -1st sample from the ED was positive, follow up sample from today is negative -Likely from diverticulosis leaking from prior use of Eliquis -Stopped Eliquis, re-check guiac stool in 24 hours Dyspnea on exertion -Baseline, patient requires no supplemental oxygen -Now on 1-3L per nasal cannula -Patient takes off her oxygen frequently due to confusion Elevated troponin -18.7, then 17.1 (remained flat) -Likely due to demand ischemia/stress -Blood pressure and heart rate remain WNL -Monitor for chest pain, EKG as needed Counseling regarding goals of care -Patient's POA, Melanie (daughter) was called who wishes to meet with Palliative care, Lisa Foster today -Consult initiated, await conclusions -On admission, Melanie confirmed DNR/DNI and plans to bring in paperwork for POA status Diastolic dysfunction with chronic heart failure -Echo (preliminary) shows diastolic dysfunction, LVH, and preserved EF of 65% -Rate control and diuresis after anemia improves -Monitor for fluid overload, daily weights, I/O, resume diuretics when appropriate Pulmonary hypertension -Patient with a history of COPD, unknown TRISH -Pulmonary emboli (saddle) in 2018 also contributes -Echo shows an RVSP at rest of 45 mmHg -Resume diuretics in the next 1-2 days or after blood PVD (peripheral vascular disease) -SCDs if tolerated, encouraged activity, avoid long periods in the chair Alzheimer's dementia -Patient is disorientated, is NOT decisional -Activated POA is Melanie (daughter) -Patient cannot speak for herself, therefore, cannot leave against medical advise -Brain MRI from 2014 showed Stool incontinence -Now chronic, likely due to a progression of her dementia -Frequent nursing cares, monitor for infection Medical non-compliance -Patient was reported to have left AMA from [facility] -Patient is not to speak for herself and her activated POA is her daughter, Melanie who will be bringing in the paperwork Essential hypertension -Previously on spironolactone, lasix, & BB -Continues on metoprolol, adding in lasix after blood later this evening Hyperlipidemia -currently not treated given the severity of her dementia and potential side effects of a statin DJD (degenerative joint disease) -Noted on imaging reports, continue oxycodone to be used sparingly to prevent worsening confusion Narcotic dependence -Recently prescribed oxycodone, but was adjusted down on her last hospital stay - ongoing pain due to DJD, dementia, inactivity
[2019-06-16] MEDS: SODIUM CHLORIDE FLUSH 0.9% 10 ML SYRINGE IVP SCH ×2 (09:12→09:48)
[2019-06-16] MEDS: METOPROLOL SUCCINATE 25 MG TABLET PO SCH (09:37)
[2019-06-16] MEDS: SPIRONOLACTONE 25 MG TABLET PO SCH (09:42)
[2019-06-16] MEDS: BRIMONIDINE 0.2% EACHEYE SCH (09:43)
[2019-06-16] MEDS: DORZOLAMIDE EACHEYE SCH (09:45)
[2019-06-16] MEDS: TIMOLOL EACHEYE SCH (09:45)
--- NOTE | 2019-06-16 13:59 | Discharge Plan ---
"Discharge Plan for SNF / ADRIANA - Discharge Plan And Transition Orders Problem Reviewed?: Yes Disposition: 03 SNF DC/Xfer Condition: Good Allergies and Adverse Reactions: Allergies Allergy/AdvReac Type Severity Reaction Status Date / Time No Known Drug Allergies Allergy Verified 06/14/19 11:40 Health Concerns: Acute kidney injury Anemia Stool guaiac positive Dyspnea on excertion Diastolic dysfunction with chronic heart failure Pulmonary hypertension PVD Alzheimer's dementia Stool incontinence Medical non-compliance Essential hypertension Narcotic dependence Plan of Treatment: Continue 24 hour supervision Palliative care with Lisa Foster Activated ERNIE is the patient's daughterMelanie Patient is not decisional, cannot speak for her self when making medical decisions Care Goals: Fall prevention Manage symptoms, prevent ED visits or hospital stays Assessment: The patient was admitted for RADHA, given IV fluids, 1 unit PRBCs and her symptoms were managed. She continued to have profound confusion, and after a Palliative care conference, it was determined, the patient cannot answer for herself. An oxygen walking desaturation test is pending to evaluate for home oxygen. She should be given her Xopenex nebulizers for wheezing or shortness of breath. Her diuretic was adjusted to every other day lasix to prevent dehydration/RADHA. She was medically stable and transported back to [facility] with a higher level of care. Her POAMelanie is available by phone and is expected to fly back from [place] in the next few days. - SNF / HALF-WAY Transition Orders Admit to (Facility): [facility] Under the care of (Name): Lisa Foster Discharge Diagnosis: RADHA (acute kidney injury)-improved, nearly back to baseline serum creatinine, urinating well Anemia-Ongoing anemia, +guiac stool test, Eliquis discontinued Status post blood transfusion-1 unit only, stable Stool guaiac positive-Stopped blood thinners Dyspnea on exertion-Chronic, managed with diuretics, nebulizers as needed Elevated troponin- stayed flat, likely from demand ischemia Counseling regarding goals of care-Ongoing, patient remains a DNR Diastolic dysfunction with chronic heart failure-Echo from this stay confirms, continues on metoprolol, lasix every other day, daily spironolactone Pulmonary hypertension-Echo from this stay confirms, continues on metoprolol, lasix every other day, daily spironolactone PVD (peripheral vascular disease)-Chronic, stable Alzheimer's dementia-Chronic, stable Stool incontinence-Chronic, stable Medical pms-anefyvlkaz-Cvzlajo, stable Essential hypertension-Chronic, stable Hyperlipidemia-Chronic, stable DJD (degenerative joint disease)-Chronic, stable Narcotic dependence-Chronic, stable, reduced dosing Weight on admission and: Weekly Other Notification Orders: Call PCP immediately if patient develops dyspnea, chest pain/tightness or edema. Oxygen Orders: Pending a walking oxygen saturation test. Lab Tests or X-ray Orders: Every 2 week electrolyte panel,check CBC within one week Medication Orders: PLEASE REFER TO THE DISCHARGE MEDICATION LIST. - Medications New Prescriptions: Acetaminophen [Tylenol] 650 mg PO Q4HR PRN #30 tablet PRN Reason: Pain Or Fever > 38c (100.4f) Famotidine [Pepcid] 20 mg PO BID #60 tablet Furosemide 20 mg PO Q2D #30 tablet Inhaler, Assist Devices [Aerochamber Mini] 1 each MC QID PRN #1 spacer PRN Reason: Wheezing Levalbuterol [Xopenex] 1 puffs INH Q4-6H PRN #1 inhaler PRN Reason: Wheezing Metoprolol Succinate [Toprol Xl] 12.5 mg PO BIDWM #30 tablet oxyCODONE [Roxicodone] 2.5 mg PO TID PRN #20 tablet PRN Reason: Pain - Diet Type: Geriatric Texture: Regular Liquids: Thin May have monthly special meal: Yes - Therapies | Activity Rehabilitation Potential: Maximize functional status, Maintain present ADL Functional Activity: Fall precautions Weight Bearing: Full Weight Assistance Devices: Walker"
[2019-06-16 14:24] VITALS: BP 103/44
--- NOTE | 2019-06-16 14:30 | DISCHARGE SUMMARY ---
"Discharge Summary Admit Date: 06/14/19 Discharge Date: 06/16/19 Discharging Provider: MIRTHA Butler Primary Care Provider: Eddie Blanco Code Status: Do Not Attempt Resuscitation Condition at Discharge: Good Discharge Disposition: 03 SNF DC/Xfer Discharge Facility Name: [facility] - DIAGNOSES Admission Diagnoses: RADHA (acute kidney injury) Dyspnea on exertion Elevated troponin Hypoxia Anemia Upper respiratory infection Anticoagulant long-term use Stool guaiac positive PVD (peripheral vascular disease) Alzheimer's dementia Essential hypertension Pulmonary hypertension Hyperlipidemia DJD (degenerative joint disease) Diastolic dysfunction with chronic heart failure Narcotic dependence Discharge Diagnoses with Status of Each Condition: RADHA (acute kidney injury)-improved, nearly back to baseline serum creatinine, urinating well Anemia-Ongoing anemia, +guiac stool test, Eliquis discontinued Encounter for blood transfusion-1 unit only, stable Stool guaiac positive-Stopped blood thinners Dyspnea on exertion-Chronic, managed with diuretics, nebulizers as needed Elevated troponin- stayed flat, likely from demand ischemia Counseling regarding goals of care-Ongoing, patient remains a DNR Diastolic dysfunction with chronic heart failure-Echo from this stay confirms, continues on metoprolol, lasix every other day, daily spironolactone Pulmonary hypertension-Echo from this stay confirms, continues on metoprolol, lasix every other day, daily spironolactone PVD (peripheral vascular disease)-Chronic, stable Alzheimer's dementia-Chronic, stable Stool incontinence-Chronic, stable Medical [id number]-Lelilzd, stable Essential hypertension-Chronic, stable Hyperlipidemia-Chronic, stable DJD (degenerative joint disease)-Chronic, stable Narcotic dependence-Chronic, stable, reduced dosing - HPI History of Present Illness: Jaent Nicole is a pleasant 89-year old female with a past medical history of essential hypertension, saddle PE, hyperlipidemia, osteoporosis, PVD, polymyalgia rheumatica, diverticular disease, lumbar DJD, restless leg syndrome, headaches, GERD, urinary and stool incontinence, and memory loss. The patient was just in [place] for a family visit and left AMA on 2 separate occasions from the hospital in which she was hospitalized for COPD exacerbation (cough). Since arriving back to the [facility] on June 08, the patient has had a progressive cough, activity intolerance, orthopnea and loss of appetite. She has been living at [facility] since February of 2019, and recently has been needing more help with medications and cares. After an office visit with Dr. Blanco (PCP) today, a non-urgent ambulance brought the patient to the ED due to shortness of breath, activity intolerance, increased peripheral swelling, and tachycardia. Upon arrival to the ED, labs show BNP 97, normal WBC count, hemoglobin 8.0, hematocrit 28.3, MCV 69.9, platelets 586, BUN 27, creatinine 1.9, GFR 25, troponin 18.7, with no other abnormalities. Imaging shows a clear chest x-ray. A stool sample shows +occult guiac. On exam, +murmur, mild JVD, abdominal edema, no BLE edema, evidence of longstanding poor perfusion with discoloration of BLEs, profoundly dry mucous membranes with a dry cracked tongue. The patient is being admitted to observation for RADHA, anemia, and symptom management. - CONSULTS | PROCEDURES Consultations: Palliative care- Lisa Foster - HOSPITAL COURSE Hospital Course: The patient was admitted for RADHA, given IV fluids, 1 unit PRBCs and her symptoms were managed. She continued to have profound confusion, and after a Palliative care conference, it was determined, the patient cannot answer for herself. An oxygen walking desaturation test is pending to evaluate for home oxygen. She should be given her Xopenex nebulizers for wheezing or shortness of breath. Her diuretic was adjusted to every other day lasix to prevent dehydration/RADHA. She was medically stable and transported back to [facility] with a higher level of care. Her POAMelanie is available by phone and is expected to fly back from [place] in the next few days. - ALLERGIES Allergies/Adverse Reactions: Allergies Allergy/AdvReac Type Severity Reaction Status Date / Time lisinopril Allergy Unknown Verified 06/16/19 16:11 tramadol Allergy Unknown Verified 06/16/19 16:11 - MEDICATIONS Home Medications: Ambulatory Orders Medication Instructions Recorded Confirmed Brimonidine 0.2% Ophth Drops 1 drops EACHEYE BID 06/14/19 06/15/19 [Alphagan P 0.2% Ophth Drops] oxyCODONE [Roxicodone] 5 mg PO TID PRN 06/14/19 06/14/19 Dorzolamide/Timolol Ophth Soln 1 drops EACHEYE BID 06/15/19 06/15/19 [Cosopt] Latanoprost 0.005% Ophth Drops 1 drops EACHEYE QPM 06/15/19 06/15/19 [Xalatan Ophth Drops] Acetaminophen [Tylenol] 650 mg PO Q4HR PRN #30 tablet 06/16/19 Famotidine [Pepcid] 20 mg PO BID #60 tablet 06/16/19 Furosemide 20 mg PO Q2D #30 tablet 06/16/19 Inhaler, Assist Devices 1 each MC QID PRN #1 spacer 06/16/19 [Aerochamber Mini] Levalbuterol [Xopenex] 1 puffs INH Q4-6H PRN #1 inhaler 06/16/19 Metoprolol Succinate [Toprol Xl] 12.5 mg PO BIDWM #30 tablet 06/16/19 Spironolactone [Aldactone] 25 mg PO DAILY #30 tablet 06/16/19 oxyCODONE [Roxicodone] 2.5 mg PO TID PRN #20 tablet 06/16/19 predniSONE [Deltasone] 4 mg PO DAILYWM #30 06/16/19 06/14/19 traZODone [Desyrel] 50 mg PO QPM #30 tablet 06/16/19 - PHYSICAL EXAM AT DISCHARGE General Appearance: positive: Alert, Moderate distress, Anxious Eyes Bilateral: positive: PERRL, No lid inflammation ENT: positive: Pharyngeal erythema, Dry mucous membranes Neck: positive: Trachea midline, Stiff neck Respiratory: positive: Chest non-tender, No respiratory distress, Wheezes, Other (scattered crackles bilaterally) Cardiovascular: positive: No gallop, Irregularly irregular, Systolic murmur, Decreased pulse(s) Peripheral Pulses: positive: 1+ Abdomen: positive: Non-tender, Hepatomegaly, Abnml bowel sounds, Other (rounded, soft) Back: positive: Nml inspection Skin: positive: No rash, Warm, Dry, Pallor Extremities: positive: Non-tender, Full ROM, Pedal edema, Other (discoloration to BLEs) Neurologic/Psychiatric: positive: Disoriented to person, Disoriented to place, Disoriented to time, Weakness, Sensory loss, Slurred/abnml speech, Depressed mood/affect, Other (baseline dementia) Reflexes: Bicep (R): 2+, Bicep (L): 2+ - LABS Result Diagrams: 06/16/19 05:15 06/16/19 05:15 - DIAGNOSTIC IMAGING Diagnostic Imaging Results: Final report reviewed Diagnostic Imaging Results Comments: EXAM: CHEST RADIOGRAPHY EXAM DATE: 06/14/2019 01:21 PM. IMPRESSION: Negative chest. Lungs are clear. EXAM: CHEST RADIOGRAPHY EXAM DATE: 06/15/2019 08:03 PM. IMPRESSION: Mild pulmonary edema. - FOLLOW UP Follow Up: With facility preference provider - TIME SPENT Time Spent in Discharge (Minutes): 70"
== END 2019-06-16 15:50 ==
LOC: EDUNIT# → ED 11:31 → MS3 16:26
PROVIDERS: ADMIT Nurse Practitioner; ATTEND Nurse Practitioner
DX: N17.9 Acute kidney failure, unspecified (principal); D64.9 Anemia, unspecified; R19.5 Other fecal abnormalities; R79.89 Other specified abnormal findings of blood chemistry; I27.20 Pulmonary hypertension, unspecified; I73.9 Peripheral vascular disease, unspecified; G30.9 Alzheimer's disease, unspecified; F02.81 Dementia in other diseases classified elsewhere, unspecified severity, with behavioral disturbance; R15.9 Full incontinence of feces; K52.9 Noninfective gastroenteritis and colitis, unspecified; K59.00 Constipation, unspecified; J44.1 Chronic obstructive pulmonary disease with (acute) exacerbation; I11.0 Hypertensive heart disease with heart failure; I50.9 Heart failure, unspecified; R09.02 Hypoxemia; R32 Unspecified urinary incontinence; E78.5 Hyperlipidemia, unspecified; R35.0 Frequency of micturition; R39.15 Urgency of urination; R30.0 Dysuria; F41.9 Anxiety disorder, unspecified; F11.20 Opioid dependence, uncomplicated; M81.0 Age-related osteoporosis without current pathological fracture; M19.90 Unspecified osteoarthritis, unspecified site; M35.3 Polymyalgia rheumatica; M47.816 Spondylosis without myelopathy or radiculopathy, lumbar region; G25.81 Restless legs syndrome; K21.9 Gastro-esophageal reflux disease without esophagitis; Z74.09 Other reduced mobility; H54.7 Unspecified visual loss; H91.90 Unspecified hearing loss, unspecified ear; Z66 Do not resuscitate; Z51.5 Encounter for palliative care; Z91.19 Patient's noncompliance with other medical treatment and regimen; Z79.01 Long term (current) use of anticoagulants; Z79.52 Long term (current) use of systemic steroids; Z79.51 Long term (current) use of inhaled steroids; Z86.711 Personal history of pulmonary embolism; Z87.19 Personal history of other diseases of the digestive system; Z87.891 Personal history of nicotine dependence
CPT/HCPCS: 36415; 36430; 71045; 71046; 80048; 80053; 82270; 82272; 83690; 83735; 83880; 84484; 85025; 85027; 85610; 85730; 86850; 86900; 86901; 86920; 87275; 87276; 87280; 93005; 93306; 94640; 96361; 96365; 96375; 97161; 97165; 99223; 99284; 99285; A9270; G0378; P9016

== ENCOUNTER 2019-06-19 06:54 | Outpatient (CLI) | payer MEDICARE | END 2019-06-19 06:55 | disposition critical access hospital (66) | LOC: EMS 06:54 | PROVIDERS: ATTEND Surgery | DX: R29.6 Repeated falls (principal); Z79.01 Long term (current) use of anticoagulants | CPT/HCPCS: A0425; A0429 ==

== ENCOUNTER 2019-06-19 07:12 | Inpatient (IN) | payer MEDICARE ==
--- NOTE | 2019-06-19 08:01 | ED Physician Documentation ---
History of Present Illness - Stated complaint Stated Complaint: GLF - Chief complaint Chief Complaint: Trauma Ch/Bk - History obtained from History obtained from: Patient, EMS - History of Present Illness Timing: Today Pain level max: 0 Pain level now: 0 - Additonal information Additional information: 89-year-old female lives at [facility] and has severe dementia. The [place] [facility] staff states that they found her on the floor this morning, sleeping on the floor. Unknown if she fell or if any injury occurred. The [place] [facility] states that she has had more falls recently. No fevers. No vomiting. Patient is unable to give any history. She is placed in a cervical collar with EMS. Review of Systems Unable to obtain: Dementia PD PAST MEDICAL HISTORY - Past Medical History Cardiovascular: Hypertension, High cholesterol, Pulmonary embolism, Murmur Respiratory: COPD, Shortness of breath, Other (saddle pulmonary emboli) Neuro: Alzhiemer's Endocrine/Autoimmune: None GI: GERD, GI bleed, Chronic diarrhea, Diverticulitis, Other (stool incontinence) : Incontinence, Frequency HEENT: Chronic vision loss, Chronic hearing loss Psych: Anxiety Musculoskeletal: Osteoporosis, Fatigue, Chronic back pain Derm: None - Past Surgical History Past Surgical History: Yes General: Appendectomy, Bowel surgery, 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, Oophrectomy - Present Medications Home Medications: Ambulatory Orders Medication Instructions Recorded Confirmed Brimonidine 0.2% Ophth Drops 1 drops EACHEYE BID 06/14/19 06/15/19 [Alphagan P 0.2% Ophth Drops] Dorzolamide/Timolol Ophth Soln 1 drops EACHEYE BID 06/15/19 06/15/19 [Cosopt] Latanoprost 0.005% Ophth Drops 1 drops EACHEYE QPM 06/15/19 06/15/19 [Xalatan Ophth Drops] Acetaminophen [Tylenol] 650 mg PO Q4HR PRN #30 tablet 06/16/19 Furosemide 20 mg PO Q2D #30 tablet 06/16/19 oxyCODONE [Roxicodone] 2.5 mg PO TID PRN #20 tablet 06/16/19 predniSONE [Deltasone] 4 mg PO DAILYWM #30 06/16/19 06/14/19 traZODone [Desyrel] 50 mg PO QPM #30 tablet 06/16/19 Famotidine [Pepcid] 20 mg PO BID 06/19/19 06/19/19 Levalbuterol [Xopenex] 3 ml INH Q4H PRN 06/19/19 Metoprolol Succinate [Toprol Xl] 12.5 mg PO BIDWM 06/19/19 06/19/19 Spironolactone [Aldactone] 25 mg PO DAILY 06/19/19 - Allergies Allergies/Adverse Reactions: Allergies Allergy/AdvReac Type Severity Reaction Status Date / Time lisinopril Allergy Unknown Verified 06/19/19 07:21 tramadol Allergy Unknown Verified 06/19/19 07:21 - Social History Does the pt smoke?: No Smoking Status: Former smoker (age 17-40) Does the pt drink ETOH?: No Does the pt have substance abuse?: No - POLST Patient has POLST: Yes POLST Status: DNR PD ED PE NORMAL - Vitals Vital signs reviewed: Yes - General General: No acute distress, Well developed/nourished, Other (Alert, oriented to person only) - HEENT HEENT: Atraumatic, PERRL, Ears normal, Moist mucous membranes, Pharynx benign - Neck Neck: Supple, no meningeal sign, No bony TTP - Cardiac Cardiac: RRR - Respiratory Respiratory: No respiratory distress, Clear bilaterally - Abdomen Abdomen: Soft, Non tender, Non distended - Back Back: No spinal TTP - Derm Derm: Warm and dry - Extremities Extremities: Normal ROM s pain - Neuro Neuro: Other (Alert) - Psych Psych: Normal mood Results - Vitals Vitals: Vital Signs - 24 hr 06/19/19 07:15 Temperature 36.2 C L Heart Rate 86 Respiratory 14 Rate Blood Pressure 140/97 H O2 Saturation 100 Oxygen O2 Source Room air - Labs Labs: Laboratory Tests 06/19/19 06/19/19 06/19/19 07:52 07:52 07:52 WBC 12.8 H RBC 4.19 L Hgb 9.0 L Hct 30.3 L MCV 72.3 L MCH 21.5 L MCHC 29.7 L RDW 22.5 H Plt Count 392 MPV 9.7 Neut # (Auto) 9.3 H Lymph # (Auto) 1.7 [place] # (Auto) 1.2 H Eos # (Auto) 0.3 Baso # (Auto) 0.1 Absolute Nucleated RBC 0.00 Nucleated RBC % 0.0 Manual Slide Review Indicated RBC Morph Micro Appear 1+ SCHISTOCYTES Sodium 140 Potassium 4.1 Chloride 105 Carbon Dioxide 19 L Anion Gap 16.0 H BUN 53 H Creatinine 2.7 H Estimated GFR (MDRD) 17 L Glucose 74 Calcium 8.9 Total Bilirubin 1.0 AST 46 H ALT 29 Alkaline Phosphatase 53 Troponin I High Sens B-Natriuretic Peptide 155 H Total Protein 6.2 L Albumin 3.4 Globulin 2.8 Albumin/Globulin Ratio 1.2 Lipase 66 H Urine Color Urine Clarity Urine pH Ur Specific [place] Urine Protein Urine Glucose (UA) Urine Ketones Urine Occult Blood Urine Nitrite Urine Bilirubin Urine Urobilinogen Ur Leukocyte Esterase Urine RBC Urine WBC Ur Squamous Epith Cells Urine Bacteria Ur Microscopic Review Urine Culture Comments 06/19/19 06/19/19 07:57 08:10 WBC RBC Hgb Hct MCV MCH MCHC RDW Plt Count MPV Neut # (Auto) Lymph # (Auto) [place] # (Auto) Eos # (Auto) Baso # (Auto) Absolute Nucleated RBC Nucleated RBC % Manual Slide Review RBC Morph Micro Appear Sodium Potassium Chloride Carbon Dioxide Anion Gap BUN Creatinine Estimated GFR (MDRD) Glucose Calcium Total Bilirubin AST ALT Alkaline Phosphatase Troponin I High Sens 23.7 H* B-Natriuretic Peptide Total Protein Albumin Globulin Albumin/Globulin Ratio Lipase Urine Color YELLOW Urine Clarity CLEAR Urine pH 5.5 Ur Specific [place] 1.025 Urine Protein NEGATIVE Urine Glucose (UA) NEGATIVE Urine Ketones 15 H Urine Occult Blood TRACE-INTA Urine Nitrite NEGATIVE Urine Bilirubin NEGATIVE Urine Urobilinogen 0.2 (NORMAL) Ur Leukocyte Esterase TRACE H Urine RBC 0-5 Urine WBC 6-10 H Ur Squamous Epith Cells RARE Squamous Urine Bacteria Few Ur Microscopic Review INDICATED Urine Culture Comments INDICATED - Rads (name of study) Head CT Radiology: Prelim report reviewed, EMP read contemporaneously, See rad report Cervical spine CT Radiology: Prelim report reviewed, EMP read contemporaneously PD MEDICAL DECISION MAKING - ED course Complexity details: reviewed old records, reviewed results, re-evaluated patient, considered differential, d/w patient, d/w internet sales consultant ED course: No acute findings on head or cervical spine CT. Patient has significant acute renal failure, uremia and acidosis. An IV was started on IV fluids given. She also has worsening recurrent anemia. Confirmed with her [place] [facility] that she is not receiving Eliquis anymore. Given her worsening lab findings, will admit to ensure that she does not need another blood transfusion. Discussed the case with Dr. Muller, hospitalist who accepts This document was made in part using voice recognition software. While efforts are made to proofread this document, sound alike and grammatical errors may occur. Baseline creatinine is approximately 1.5 Departure - Departure Disposition: 66 [facility] DC/Xfer Clinical Impression: Uremia Acute renal failure (ARF) Qualifiers: Acute renal failure type: unspecified Qualified Code(s): N17.9 - Acute kidney failure, unspecified Anemia Qualifiers: Anemia type: unspecified type Qualified Code(s): D64.9 - Anemia, unspecified Condition: Stable Discharge Date/Time: 06/19/19 10:19
--- NOTE | 2019-06-19 08:02 | CT Report ---
Reason: fall, head/neck injury Procedure Date: 06/19/2019 Accession Number: [id number] / [id number] Procedure: CT - HEAD WO CPT Code: Final Report FULL RESULT: EXAM: CT HEAD EXAM DATE: 06/19/2019 07:46 AM. CLINICAL HISTORY: Fall, head/neck injury. COMPARISON: BRAIN W/O 01/12/2015 10:30 AM. TECHNIQUE: Multiaxial CT images were obtained from the foramen magnum to the vertex. Reformats: Sagittal and coronal. IV contrast: None. In accordance with CT protocol optimization, one or more of the following dose reduction techniques were utilized for this exam: automated exposure control, adjustment of mA and/or KV based on patient size, or use of iterative reconstructive technique. FINDINGS: Parenchyma: No intraparenchymal hemorrhage. No evidence of mass, midline shift, or CT findings of infarction. Xavier-white differentiation is distinct. Periventricular white matter changes, consistent with chronic ischemic small vessel disease. Extraaxial Spaces: Normal for age. No subdural or epidural collections identified. Ventricles: Normal in size and position. Sinuses and Orbits: Imaged paranasal sinuses, orbits, and mastoids show no significant abnormality. Bones: No evidence of fracture or calvarial defect. Other: None. IMPRESSION: No acute intracranial hemorrhage or calvarial fracture identified. RADIA
[2019-06-19 08:03] LABS: BASOPHILS # (AUTO) 0.1 10^3/uL (0.0-0.1); BASOPHILS % (AUTO) 0.6 %; EOSINOPHILS # (AUTO) 0.3 10^3/uL (0.0-0.7); EOSINOPHILS % (AUTO) 2.5 %; LYMPHOCYTES # (AUTO) 1.7 10^3/uL (1.5-3.5); LYMPHOCYTES % (AUTO) 13.4 %; MEAN CORPUSCULAR HEMOGLOBIN 21.5 pg (27.0-31.0); MEAN CORPUSCULAR HGB CONC 29.7 g/dL (32.0-36.0); MEAN CORPUSCULAR VOLUME 72.3 fL (81.0-99.0); MEAN PLATELET VOLUME 9.7 fL (7.9-10.8); MONOCYTES # (AUTO) 1.2 10^3/uL (0.0-1.0); MONOCYTES % (AUTO) 9.2 %; NEUTROPHILS # (AUTO) 9.3 10^3/uL (1.5-6.6); NEUTROPHILS % (AUTO) 73.1 %; PLT - PLATELET COUNT 392 10^3/uL (130-450); RED BLOOD COUNT 4.19 10^6/uL (4.20-5.40); RED CELL DISTRIBUTION WIDTH 22.5 % (12.0-15.0); WHITE BLOOD COUNT 12.8 x10^3/uL (4.8-10.8)
--- NOTE | 2019-06-19 08:05 | CT Report ---
Reason: fall, head/neck injury Procedure Date: 06/19/2019 Accession Number: [id number] / [id number] Procedure: CT - CERVICAL SPINE WO CPT Code: Final Report FULL RESULT: EXAM: CT CERVICAL SPINE WITHOUT CONTRAST DATE: 06/19/2019 07:46 AM. HISTORY: 89-year-old female. Fall, head/neck injury. COMPARISONS: None. TECHNIQUE: Thin-section axial images were acquired of the cervical spine without contrast. Post-processing: Coronal and sagittal reformats. Other: None. In accordance with CT protocol optimization, one or more of the following dose reduction techniques were utilized for this exam: automated exposure control, adjustment of mA and/or KV based on patient size, or use of iterative reconstructive technique. FINDINGS: Alignment: Grade 1 retrolisthesis C3 on C4 measuring 2 mm. Grade 1 retrolisthesis C4 on C5 measuring 3 mm. Grade 1 anterolisthesis C7 on T1 measuring 3 mm. Bones: No fracture or bone lesion. Interspace Levels/Facets: C1-C2: Unremarkable. C2-C3: Moderate left facet arthropathy. No significant bony central canal or foraminal narrowing. C3-C4: Moderate disk height loss. Small posterior disk osteophyte complex. No significant central canal narrowing. Moderate to severe left and mild right foraminal narrowing. C4-C5: Moderate disk height loss. Small posterior disk osteophyte complex. Mild central canal narrowing. Moderate to severe left and mild right foraminal narrowing. C5-C6: Severe disk height loss. Small posterior disk osteophyte complex. Mild central canal narrowing. Moderate to severe bilateral foraminal narrowing. C6-C7: Moderate disk height loss. Mild bilateral facet arthropathy. Small posterior disk osteophyte complex. No significant central canal narrowing. Moderate to severe bilateral foraminal narrowing. C7-T1: Moderate to severe bilateral facet arthropathy. No significant central canal narrowing. Mild bilateral foraminal narrowing. Musculature: Normal. No fatty atrophy. Other: Moderate severe degenerative changes temporomandibular joints bilaterally. Moderate atherosclerosis aortic arch, no hemodynamically significant stenosis. The paravertebral and prevertebral soft tissues are unremarkable. The lung apices are clear. IMPRESSION: 1. No evidence of acute fracture or traumatic subluxation. No prevertebral soft tissue swelling. 2. Moderate to severe multilevel degenerative spondylosis. RADIA
[2019-06-19 08:20] LABS: BILIRUBIN,URINE NEGATIVE (NEGATIVE); GLUCOSE, URINE (UA) NEGATIVE (NEGATIVE); KETONES,URINE (UA) 15 mg/dL (NEGATIVE); LEUKOCYTE ESTERASE, URINE TRACE (NEGATIVE); NITRITE,URINE NEGATIVE (NEGATIVE); OCCULT BLOOD,URINE TRACE-INTA (NEGATIVE); PH,URINE 5.5 PH (5.0-7.5); PROTEIN,URINE NEGATIVE (NEGATIVE); UROBILINOGEN,URINE 0.2 (NORMAL) E.U./dL (NORMAL)
[2019-06-19 08:21] LABS: ALBUMIN 3.4 g/dL (3.2-5.5); ALBUMIN/GLOBULIN RATIO 1.2 (1.0-2.2); CALCIUM 8.9 mg/dL (8.5-10.3); CREATININE 2.7 mg/dL (0.4-1.0); TOTAL PROTEIN 6.2 g/dL (6.7-8.2)
[2019-06-19 08:28] LABS: CLARITY,URINE CLEAR (CLEAR)
[2019-06-19 08:31] LABS: BACTERIA,URINE Few /HPF (None Seen); RBC,URINE 0-5 /HPF (0-5); SQUAMOUS EPITHELIAL CELL,UR RARE Squamous (<= Few)
[2019-06-19] MEDS ORDERED: SODIUM CHLORIDE 0.9% 1,000 ML IV ONE (08:38)
[2019-06-19] MEDS: ALBUTEROL NEB 2.5 MG/3 ML INH STA ×2 (09:18)
--- NOTE | 2019-06-19 09:28 | XRAY Report ---
Reason: cough, wheezing Procedure Date: 06/19/2019 Accession Number: [id number] / [id number] Procedure: XR - Chest 1 View X-Ray CPT Code: 67508 Final Report FULL RESULT: EXAM: CHEST RADIOGRAPHY EXAM DATE: 06/19/2019 09:21 AM. CLINICAL HISTORY: Cough, wheezing. COMPARISON: CHEST 1 VIEW 06/15/2019 7:48 PM. TECHNIQUE: 1 view. FINDINGS: Lungs/Pleura: Interval improvement of aeration bilaterally, with resolution of previously seen interseptal markings at the right lung base. No acute consolidations identified. Mediastinum: Within exam limitations, the cardiomediastinal contour is normal. Other: None. IMPRESSION: Findings consistent with resolving pulmonary edema. RADIA
[2019-06-19] MEDS: SODIUM CHLORIDE 0.9% 1,000 ML IV SCH ×2 (10:43→19:37)
--- NOTE | 2019-06-19 11:15 | HISTORY & PHYSICAL EXAMINATION ---
Chief Complaint - Chief Complaint Chief Complaint: fall, RADHA History of Present Illness - Admitted From Admitted From:: ED - History Obtained From Records Reviewed: yes History obtained from: chart review, EMS notes Exam Limitations: AMS - History of Present Illness HPI Comment/Other: Janet Nicole is a pleasant 89-year old female with a past medical history of essential hypertension, saddle PE, hyperlipidemia, osteoporosis, PVD, polymyalgia rheumatica, diverticular disease, lumbar DJD, restless leg syndrome, headaches, GERD, urinary and stool incontinence, dementia, RADHA, anemia, stool heme positive, and emphysema COPD. The patient was just discharged on Wednesday (06/16/2019) back to [facility] with a higher level of care in which the staff would administer medications and do more frequent checks. She has been living at [facility] since February of 2019. [facility] staff reported she did not come down for breakfast, so staff went to her room to check on her. The patient was found by staff on the floor of her room without obvious physical injury. Staff reported to EMS that she was in the bed 2 hours prior. Upon arrival to the ED, the patient did not complain of pain, and was in a c collar. Labs showed an elevated WBC count of 12.8, Hct 9.0, Hct 30.3, MCV 72.3, neut # 9.3, sodium 140, potassium 4.1, carbon dioxide 19, anion gap 16.0, BUN 53, creatinine 2.7, GFR 17, AST 46, total protein 6.2, elevated troponin 23.7, elevated BNP 155, & an elevated lipase of 66. A chest x-ray showed resolving pulmonary edema. A head & cervical spine CT showed no hemorrhage or acute fractures. The patient is being admitted to for RADHA, and respiratory care. The patients daughter was called to speak about re-admission and the fact that her mother will need a higher level of care with 24-hour supervision. 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 : reports: Incontinence, Renal insuffiency, Nocturia, Frequency HEENT: reports: Chronic vision loss, Chronic hearing loss Psych: reports: Anxiety, Other (progressive dementia) Musculoskeletal: reports: Osteoporosis, Fatigue, Chronic back pain, Other (DJD of lumbar spine) Derm: reports: None MRSA Hx?: No - Past Surgical History General: reports: Appendectomy, Bowel surgery, 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 [facility] After he , she has been [id number], but decided to settle down on [facility]. - Substance History Use: Uses substance without health or social issues: NONE Abuse: Recurrent use of substance despite neg consequences: NONE Dependence: Experiences withdrawal or developed tolerances: NONE Tobacco Details: Cigarettes (Smoked since being a teenager into her 50's (greater than 30-years), also 2nd hand smoke exposure) - POLST Patient has POLST: Yes POLST Status: DNR Meds/Allgy - Home Medications Home Medications: Ambulatory Orders Medication Instructions Recorded Confirmed Brimonidine 0.2% Ophth Drops 1 drops EACHEYE BID 06/14/19 06/15/19 [Alphagan P 0.2% Ophth Drops] Dorzolamide/Timolol Ophth Soln 1 drops EACHEYE BID 06/15/19 06/15/19 [Cosopt] Latanoprost 0.005% Ophth Drops 1 drops EACHEYE QPM 06/15/19 06/15/19 [Xalatan Ophth Drops] Acetaminophen [Tylenol] 650 mg PO Q4HR PRN #30 tablet 06/16/19 Furosemide 20 mg PO Q2D #30 tablet 06/16/19 oxyCODONE [Roxicodone] 2.5 mg PO TID PRN #20 tablet 06/16/19 predniSONE [Deltasone] 4 mg PO DAILYWM #30 06/16/19 06/14/19 traZODone [Desyrel] 50 mg PO QPM #30 tablet 06/16/19 Famotidine [Pepcid] 20 mg PO BID 06/19/19 06/19/19 Levalbuterol [Xopenex] 3 ml INH Q4H PRN 06/19/19 Metoprolol Succinate [Toprol Xl] 12.5 mg PO BIDWM 06/19/19 06/19/19 Spironolactone [Aldactone] 25 mg PO DAILY 06/19/19 - Allergies Allergies/Adverse Reactions: Allergies Allergy/AdvReac Type Severity Reaction Status Date / Time lisinopril Allergy Unknown Verified 06/19/19 07:21 tramadol Allergy Unknown Verified 06/19/19 07:21 Review of Systems - Constitutional Constitutional: reports: Fatigue, Weakness, Poor appetite - Eyes Eyes: reports: Vision loss, Corrective lenses - Ears, Nose & Throat Ears, Nose & Throat: reports: Postnasal drainage, Sore throat, Hoarseness - Cardiovascular Cariovascular: reports: Edema, Syncope, Exertional dyspnea, Decr. exercise tolerance, Orthopnea - Respiratory Respiratory: reports: Cough, Wheezing, Orthopnea, SOB at rest, SOB with exertion - Gastrointestinal Gastrointestinal: reports: Abdominal distention, Change in bowel habits, Nausea, Reflux/heartburn, Bloating, Poor appetite - Genitourinary Genitourinary: reports: Dysuria, Incontinence, Nocturia - Musculoskeletal Musculoskeletal: reports: Stiffness, Limited range of motion, Joint swelling - Integumentary Integumentary: reports: Dryness, Pigment changes, Nail changes, Hair changes, Other (cyanotic extremities) - Neurological Neurological: reports: General weakness, Headache, Memory problems, Pre-existing deficit, Abnormal gait, Incoordination, Slurred speech - Psychiatric Psychiatric: reports: Depression, Anxiety, Other (medical noncompliance, disorientated) - Hematologic/Lymphatic Hematologic/Lymphatic: reports: Anemia, Bruising, Recurrent infections - All Other Systems All Other Systems: reports: Reviewed and negative Prior Level of Functionality: Ambulating with a walker, progressive dementia with falls, will need a higher level of care. Exam - Vital Signs Reviewed Vital Signs: Yes Vital Signs: Vital Signs x48h Temp Pulse Pulse Resp BP BP Pulse Ox 06/19/19 10:56 35.9 C L 84 22 138/55 H 98 06/19/19 09:36 85 18 136/70 H 99 01/13/20 07:15 36.2 C L 86 14 140/97 H 100 - Physical Exam General Appearance: positive: Alert, Moderate distress, Anxious, Lethargic Eyes Bilateral: positive: No lid inflammation ENT: positive: Pharyngeal erythema, Dry mucous membranes Neck: positive: Stiff neck Respiratory: positive: Chest non-tender, Wheezes, Rhonchi Cardiovascular: positive: No gallop, Irregularly irregular, Tachycardia, Sy stolic murmur, Decreased pulse(s) Peripheral Pulses: positive: 1+ Abdomen: positive: Nml bowel sounds, Guarding, Hepatomegaly Back: positive: Nml inspection Skin: positive: No rash, Warm, Dry, Cyanosis, Pallor, Other (scattered bruising) Extremities: positive: Pedal edema, Joint swelling, Other (discoloration of BLEs, extremely sensitive skin in BLEs) Neurologic/Psychiatric: positive: Disoriented to person, Disoriented to place, Disoriented to time, Weakness, Sensory loss, Slurred/abnml speech, Depressed mood/affect, Other (advanced dementia) Reflexes: Bicep (R): 3+, Bicep (L): 3+ Conclusion/Plan - Problem List (1) Uremic encephalopathy Conclusion/Plan: -Increased confusion, poor PO intake -Status post fall at [facility], leading to re-admission -Now in RADHA with an elevated creatinine of 2.7 (Baseline serum creatinine was 1.3) -PT/OT to evaluate for a higher level of care -Routine labs RADHA -Now in RADHA with an elevated creatinine of 2.7 (Baseline serum creatinine was 1.3) -Holding diuretics -IV fluids -Mucous membranes are very dry, dry tongue -Routine labs Fall -Unwitnessed fall, found in room by staff after the patient failed to come down for breakfast -No obvious physical injury -Head/neck imaging was negative in the ED Leukocytosis -WBC up to 12.8 from 9.9 -No oxygen needs, lung x-ray shows no opacities -Chronic stool and urine incontinence, no obvious s/s of infection Anemia -Microcytic, with an MCV at 72 -H/H remains low 9.0/30 -Patient is symptomatic with poor activity tolerance, short of breath, requires oxygen -Nail beds cyanotic, evidence of poor perfusion -Status post blood transfusion 1 unit during last admission -Eliquis was stopped during last admit for +heme stool -Routine labs Dyspnea on exertion -Baseline, patient requires no supplemental oxygen -Now on 2-3L per nasal cannula -Patient takes off her oxygen frequently due to confusion Elevated troponin -Now up to 25, up from last check, but no interventions per the patient's daughterRebecca -Likely due to demand ischemia/stress -Blood pressure and heart rate remain WNL -Monitor for chest pain Counseling regarding goals of care -Patient's POA, Melanie (daughter) met with Palliative care, Lisa Foster during last stay -Consult initiated, await conclusions -On admission, Melanie (per phone call by myself) confirmed DNR/DNI and to attempt this treatment of RADHA with fluid resuscitation Diastolic dysfunction with chronic heart failure -Echo shows diastolic dysfunction, LVH, and preserved EF of 65% -Rate control meds, holding diuretics -Monitor for fluid overload, daily weights, I/O, resume diuretics when appropriate Pulmonary hypertension -Patient with a history of COPD, unknown TRISH -Pulmonary emboli (saddle) in 2018 also contributes -Echo shows an RVSP at rest of 45 mmHg from last admission -May not tolerate diuretics, use sparingly PVD (peripheral vascular disease) -SCDs are not tolerated, encouraged activity, avoid long periods in the chair Alzheimer's dementia -Patient is disorientated, is NOT decisional -Activated POA is Melanie (daughter) -Patient cannot speak for herself, therefore, cannot leave against medical advise -Imaging shows white matter changes; shrinking Stool incontinence -Now chronic, likely due to a progression of her dementia -Frequent nursing cares, monitor for infection Medical non-compliance -Patient was reported to have left AMA from [facility] -Patient is not to speak for herself and her activated POA is her daughterAshely who will be bringing in the paperwork Essential hypertension -Previously on spironolactone, lasix- now on hold for RADHA -Continues on metoprolol DJD (degenerative joint disease) -Noted on imaging reports, continue oxycodone to be used sparingly to prevent worsening confusion Narcotic dependence -Recently prescribed oxycodone, but was adjusted down on her last hospital stay - ongoing pain due to DJD, dementia, inactivity Stool guaiac positive -Likely from diverticulosis leaking from prior use of Eliquis - Lab Results Lab results reviewed: Yes Fish Bones: 06/19/19 07:52 06/19/19 07:52 - Diagnostic Imaging Results Diagnostic Imaging Results: positive: Final report reviewed Diagnostic Imaging Results Comments: EXAM: CT HEAD EXAM DATE: 06/19/2019 07:46 AM. IMPRESSION: No acute intracranial hemorrhage or calvarial fracture identified. EXAM: CT CERVICAL SPINE WITHOUT CONTRAST DATE: 06/19/2019 07:46 AM. IMPRESSION: 1. No evidence of acute fracture or traumatic subluxation. No prevertebral soft tissue swelling. 2. Moderate to severe multilevel degenerative spondylosis. EXAM: CHEST RADIOGRAPHY EXAM DATE: 06/19/2019 09:21 AM. IMPRESSION: Findings consistent with resolving pulmonary edema. Core Measures - Anticipated LOS I expect patient to be DC'd or transferred within 96 hours.: Yes - DVT/VTE - Prophylaxis VTE/DVT Device ordered at admit?: No Not Ordered - Medical Reason: Not tolerated VTE/DVT Prophylaxis med ordered at admit?: Yes - Stroke - Rehab Assessment Rehab services assessment to be ordered?: Yes - AMI - Statin at Admit Aspirin Prescribed on Admit: Yes
[2019-06-19] MEDS ORDERED: ENOXAPARIN 30 MG/0.3 ML SYRINGE SUBQ SCH (12:00)
[2019-06-19] MEDS: HEPARIN 5,000 UNIT/ML VIAL SUBQ SCH (12:04)
[2019-06-19] MEDS ORDERED: HYDROmorphone 1 MG/ML CARPUJECT IVP PRN (12:40)
[2019-06-19] MEDS: LORazepam 0.5 MG TABLET PO PRN (13:18)
--- NOTE | 2019-06-19 16:00 | PHARMACY PROGRESS NOTE ---
- Best Possible Medication History Admit Date and Time: 06/19/19 0921 Processed by: Pharmacy Medication History completed: In progress As the person ultimately responsible for medication therapy, providers are able to order a medication from an existing home medication list in [facility] via the "Reconcile Routine" prior to Confirmation of that medication by product support representative. Such practice is discouraged except when the physician, in their clinical judgment, deems that a medical need exists for a medication without regard to previous use.
[2019-06-19] MEDS ORDERED: LORazepam 2 MG/ML VIAL IVP PRN (19:03)
[2019-06-19] MEDS: SODIUM CHLORIDE FLUSH 0.9% 10 ML SYRINGE IVP SCH (19:22)
[2019-06-19 19:49] LABS: HGB - HEMOGLOBIN 8.9 g/dL (12.0-16.0); MEAN CORPUSCULAR HEMOGLOBIN 21.5 pg (27.0-31.0); MEAN CORPUSCULAR HGB CONC 29.2 g/dL (32.0-36.0); MEAN CORPUSCULAR VOLUME 73.7 fL (81.0-99.0); MEAN PLATELET VOLUME 9.5 fL (7.9-10.8); RED BLOOD COUNT 4.14 10^6/uL (4.20-5.40); RED CELL DISTRIBUTION WIDTH 23.3 % (12.0-15.0); WHITE BLOOD COUNT 9.8 x10^3/uL (4.8-10.8)
[2019-06-19 20:01] LABS: CALCIUM 8.1 mg/dL (8.5-10.3)
[2019-06-19] MEDS ORDERED: MIN OIL/DIMETHICON/COCONUT OIL 92 GM TUBE TOP PRN (22:43)
[2019-06-19 22:58] LABS: ABSOLUTE RETICS # AUTO 0.09 10^6/uL (0.020-0.110); RED BLOOD COUNT 4.16 10^6/uL (4.20-5.40)
[2019-06-19 23:46] LABS: FERRITIN 52.3 ng/mL (11.0-306.8)
[2019-06-20] LABS: % IRON SATURATION 5 % (20-50); IRON 16 ug/dL (28-170); TOTAL IRON BINDING CAPACITY 294 ug/dL (250-450); TRANSFERRIN 210 mg/dL (192-382)
[2019-06-20] MEDS: HEPARIN 5,000 UNIT/ML VIAL SUBQ SCH (00:09)
[2019-06-20] MEDS: SODIUM CHLORIDE FLUSH 0.9% 10 ML SYRINGE IVP SCH ×3 (01:36→17:32)
[2019-06-20] MEDS: SODIUM CHLORIDE 0.9% 1,000 ML IV SCH (03:31)
[2019-06-20 05:35] LABS: HGB - HEMOGLOBIN 7.7 g/dL (12.0-16.0); MEAN CORPUSCULAR HEMOGLOBIN 21.2 pg (27.0-31.0); MEAN CORPUSCULAR HGB CONC 28.9 g/dL (32.0-36.0); MEAN CORPUSCULAR VOLUME 73.1 fL (81.0-99.0); MEAN PLATELET VOLUME 9.9 fL (7.9-10.8); NEUTROPHILS # (AUTO) 5.4 10^3/uL (1.5-6.6); NEUTROPHILS % (AUTO) 61.6 %; RED BLOOD COUNT 3.64 10^6/uL (4.20-5.40); WHITE BLOOD COUNT 8.7 x10^3/uL (4.8-10.8)
[2019-06-20 05:52] LABS: ALBUMIN 2.6 g/dL (3.2-5.5); ALBUMIN/GLOBULIN RATIO 1.2 (1.0-2.2); CALCIUM 7.6 mg/dL (8.5-10.3); CREATININE 1.7 mg/dL (0.4-1.0); MAGNESIUM 1.9 mg/dL (1.7-2.8); TOTAL PROTEIN 4.8 g/dL (6.7-8.2)
[2019-06-20] MEDS ORDERED: DEXTROSE 10% 250 ML IV STA (06:57)
[2019-06-20] MEDS ORDERED: DEXTROSE 5%-0.45% NACL 1,000 ML IV SCH ×3 (07:00→16:54)
[2019-06-20] MEDS: FERROUS SULFATE 325 MG TABLET PO SCH ×2 (10:21→17:27)
[2019-06-20] MEDS: LORazepam 0.5 MG TABLET PO PRN (10:22)
--- NOTE | 2019-06-20 11:07 | PROVIDER PROGRESS NOTE ---
Subjective - Prog Note Date Prog Note Date: 06/20/19 - Subjective Pt reports feeling: No change Subjective: pt is still very confused today, she can not provide medical information. I called her daughter at [phone] and left message. resume palliative care, Ms. Gonzalez came to hospital to see pt as well. thank Ms Lisa. Nurse report she has been very confused, she did not eat anything, her glucose was 65. now pt has D5 1/2NS. pt's CT of head was unremarkable. But pt's UA reveals positive for two bacterial on 06/19/2019. today we start on antibiotics. pt's troponin is stable, at around 25 on twice times. order EKG, is pending now. pt also present mild SOB with slight wheezing, order CXR, will followup, and reduced IVF, rise of her bed. Her sat is 97% on room air. Per Lisa Thomas's report, she talks with pt's daughter. the daughter agree to transition to hospice and keep comfortable measure only if pt continue worsening. daughter agree to have IV of antibiotics, and IVF but no blood transfusion or workup. Current Medications - Current Medications Current Medications: Active Medications Ferrous Sulfate (Feosol) 325 mg PO BIDWM MARY Last Admin: 06/20/19 10:21 Dose: 325 mg Hydromorphone HCl (Dilaudid Inj Carp) 1 mg IVP Q2HR PRN PRN Reason: PAIN Dextrose/Sodium Chloride (D5.45ns) 1,000 mls @ 100 mls/hr IV .Q10H MARY Last Admin: 06/20/19 07:42 Dose: 100 mls/hr Ceftriaxone Sodium 1 gm/ (Sodium Chloride) 100 mls @ 200 mls/hr IV DAILY MARY Lorazepam (Ativan) 0.5 mg PO Q6H PRN PRN Reason: Anxiety Last Admin: 06/20/19 10:22 Dose: 0.5 mg Lorazepam (Ativan Inj (Vial)) 0.5 mg IVP Q3H PRN PRN Reason: Anxiety Last Admin: 06/19/19 19:23 Dose: 0.5 mg Metoprolol Succinate (Toprol Xl) 12.5 mg PO BIDWM [facility] Mineral Oil (Cavilon) 1 applic TOP PRN PRN PRN Reason: Skin Care Sodium Chloride (Normal Saline Flush 0.9%) 10 ml IVP PRN PRN PRN Reason: NEEDED PER PROVIDER ORDERS Sodium Chloride (Normal Saline Flush 0.9%) 10 ml IVP 0100,0900,1700 MARY Last Admin: 06/20/19 07:44 Dose: Not Given Brimonidine 0.2% Ophth Drops [Alphagan P 0.2% Ophth Drops] 1 drops EACHEYE BID 06/14/19 Dorzolamide/Timolol Ophth Soln [Cosopt] 1 drops EACHEYE BID 06/15/19 Latanoprost 0.005% Ophth Drops [Xalatan Ophth Drops] 1 drops EACHEYE QPM 06/15/19 Famotidine [Pepcid] 20 mg PO BID 06/19/19 Levalbuterol [Xopenex] 3 ml INH Q4H PRN 06/19/19 Metoprolol Succinate [Toprol Xl] 12.5 mg PO BIDWM 06/19/19 Spironolactone [Aldactone] 25 mg PO DAILY 06/19/19 Objective - Vital Signs/Intake & Output Reviewed Vital Signs: Yes Vital Signs: Vital Signs x48h Temp Pulse Resp BP Pulse Ox 06/20/19 07:50 36.6 C 91 20 134/68 H 97 06/20/19 06:28 36.7 C 94 20 154/57 H 96 06/20/19 03:45 36.4 C L 90 18 94 Intake & Output: Intake & Output 06/17/19 06/18/19 06/19/19 06/20/19 23:59 23:59 23:59 23:59 Intake Total 2640 1757.5 Output Total 900 550 Balance 1740 1207.5 - Objective General Appearance: positive: No acute distress, Alert. negative: Lethargic Eyes Bilateral: positive: Normal inspection, PERRL, No lid inflammation ENT: positive: ENT inspection nml, Pharynx nml, No signs of dehydration. negative: Purulent nasal drainage Neck: positive: Nml inspection, Thyroid nml, No JVD, Trachea midline. negative: Thyromegaly, Lymphadenopathy (R), Lymphadenopathy (L), Stiff neck, Tracheal deviation Respiratory: positive: Chest non-tender, Wheezes. negative: Breath sounds nml Cardiovascular: positive: Regular rate & rhythm, No murmur, No gallop. negative: Irregularly irregular, Extrasystoles, Tachycardia, Bradycardia, JVD present, Systolic murmur, Diastolic murmur Peripheral Pulses: 2+ Radial (R), 2+ Radial (L), 2+ Dorsalis pedis (R), 2+ Dorsalis pedis (L) Abdomen: positive: Non-tender, No organomegaly, Nml bowel sounds, No distention. negative: Tenderness, Guarding, Rebound Back: positive: Nml inspection. negative: CVA tenderness (R), CVA tenderness (L) Skin: positive: Color nml, No rash, Warm, Dry. negative: Cyanosis, Diaphoresis, Pallor Extremities: positive: Non-tender, Full ROM, Nml appearance. negative: Calf tenderness, Javon's sign/cords Neurologic/Psychiatric: positive: Sensation nml. negative: Oriented x3, Weakness, Sensory loss, Facial droop, Slurred/abnml speech - Lab Results Fish Bones: 06/20/19 05:05 06/20/19 05:05 Other Labs: Lab Results x24hrs 06/20/19 06/20/19 06/20/19 Range/Units 08:50 05:05 05:05 WBC 8.7 (4.8-10.8) x10^3/uL RBC 3.64 L (4.20-5.40) 10^6/uL Hgb 7.7 L (12.0-16.0) g/dL Hct 26.6 L (37.0-47.0) % MCV 73.1 L (81.0-99.0) fL MCH 21.2 L (27.0-31.0) pg MCHC 28.9 L (32.0-36.0) g/dL RDW 23.0 H (12.0-15.0) % Plt Count 368 (130-450) 10^3/uL MPV 9.9 (7.9-10.8) fL Reticulocyte % (Auto) (0.5-2.3) % Neut # (Auto) 5.4 (1.5-6.6) 10^3/uL Absolute Retic (0.020-0.110) 10^6/uL Sodium 142 (135-145) mmol/L Potassium 3.7 (3.5-5.0) mmol/L Chloride 117 H (101-111) mmol/L Carbon Dioxide 16 L (21-32) mmol/L Anion Gap 9.0 (6-13) BUN 32 H (6-20) mg/dL Creatinine 1.7 H (0.4-1.0) mg/dL Estimated GFR (MDRD) 28 L (>89) Glucose 65 L (70-100) mg/dL Calcium 7.6 L (8.5-10.3) mg/dL Magnesium 1.9 (1.7-2.8) mg/dL Iron (28-170) ug/dL TIBC (250-450) ug/dL % Saturation (20-50) % Transferrin (192-382) mg/dL Ferritin (11.0-306.8) ng/mL Total Bilirubin 1.0 (0.2-1.0) mg/dL AST 33 (10-42) IU/L ALT 25 (10-60) IU/L Alkaline Phosphatase 41 L (42-121) IU/L Lactate Dehydrogenase (91-225) IU/L Total Creatine Kinase (22-269) IU/L Troponin I High Sens 24.9 H* (2.3-14.8) ng/L Total Protein 4.8 L (6.7-8.2) g/dL Albumin 2.6 L (3.2-5.5) g/dL Globulin 2.2 (2.1-4.2) g/dL Albumin/Globulin Ratio 1.2 (1.0-2.2) Vitamin B12 (180-914) pg/mL 06/19/19 06/19/19 06/19/19 Range/Units 19:46 19:46 19:46 WBC (4.8-10.8) x10^3/uL RBC (4.20-5.40) 10^6/uL Hgb (12.0-16.0) g/dL Hct (37.0-47.0) % MCV (81.0-99.0) fL MCH (27.0-31.0) pg MCHC (32.0-36.0) g/dL RDW (12.0-15.0) % Plt Count (130-450) 10^3/uL MPV (7.9-10.8) fL Reticulocyte % (Auto) (0.5-2.3) % Neut # (Auto) (1.5-6.6) 10^3/uL Absolute Retic (0.020-0.110) 10^6/uL Sodium (135-145) mmol/L Potassium (3.5-5.0) mmol/L Chloride (101-111) mmol/L Carbon Dioxide (21-32) mmol/L Anion Gap (6-13) BUN (6-20) mg/dL Creatinine (0.4-1.0) mg/dL Estimated GFR (MDRD) (>89) Glucose (70-100) mg/dL Calcium (8.5-10.3) mg/dL Magnesium (1.7-2.8) mg/dL Iron 16 L (28-170) ug/dL TIBC 294 (250-450) ug/dL % Saturation 5 L (20-50) % Transferrin 210 (192-382) mg/dL Ferritin 52.3 (11.0-306.8) ng/mL Total Bilirubin (0.2-1.0) mg/dL AST (10-42) IU/L ALT (10-60) IU/L Alkaline Phosphatase (42-121) IU/L Lactate Dehydrogenase 262 H (91-225) IU/L Total Creatine Kinase (22-269) IU/L Troponin I High Sens (2.3-14.8) ng/L Total Protein (6.7-8.2) g/dL Albumin (3.2-5.5) g/dL Globulin (2.1-4.2) g/dL Albumin/Globulin Ratio (1.0-2.2) Vitamin B12 823 (180-914) pg/mL 06/19/19 06/19/19 06/19/19 Range/Units 19:46 19:46 19:46 WBC 9.8 (4.8-10.8) x10^3/uL RBC 4.16 L 4.14 L (4.20-5.40) 10^6/uL Hgb 8.9 L (12.0-16.0) g/dL Hct 30.5 L (37.0-47.0) % MCV 73.7 L (81.0-99.0) fL MCH 21.5 L (27.0-31.0) pg MCHC 29.2 L (32.0-36.0) g/dL RDW 23.3 H (12.0-15.0) % Plt Count 371 (130-450) 10^3/uL MPV 9.5 (7.9-10.8) fL Reticulocyte % (Auto) 2.16 (0.5-2.3) % Neut # (Auto) (1.5-6.6) 10^3/uL Absolute Retic 0.090 (0.020-0.110) 10^6/uL Sodium 143 (135-145) mmol/L Potassium 3.9 (3.5-5.0) mmol/L Chloride 114 H (101-111) mmol/L Carbon Dioxide 16 L (21-32) mmol/L Anion Gap 13.0 (6-13) BUN 41 H (6-20) mg/dL Creatinine 2.0 H (0.4-1.0) mg/dL Estimated GFR (MDRD) 24 L (>89) Glucose 68 L (70-100) mg/dL Calcium 8.1 L (8.5-10.3) mg/dL Magnesium (1.7-2.8) mg/dL Iron (28-170) ug/dL TIBC (250-450) ug/dL % Saturation (20-50) % Transferrin (192-382) mg/dL Ferritin (11.0-306.8) ng/mL Total Bilirubin (0.2-1.0) mg/dL AST (10-42) IU/L ALT (10-60) IU/L Alkaline Phosphatase (42-121) IU/L Lactate Dehydrogenase (91-225) IU/L Total Creatine Kinase 266 (22-269) IU/L Troponin I High Sens (2.3-14.8) ng/L Total Protein (6.7-8.2) g/dL Albumin (3.2-5.5) g/dL Globulin (2.1-4.2) g/dL Albumin/Globulin Ratio (1.0-2.2) Vitamin B12 (180-914) pg/mL ABX Reporting Has patient been on IV antibiotics over the past 48 hours?: Yes Sepsis Event Note (H) - Evaluation Current Stage of Sepsis: Ruled out Assessment/Plan - Problem List (1) UTI (urinary tract infection) Impression: UA culture reveals negative Dods, and negative coagulase staph( it might be contaminated), start with Rocephin. UTI might lead to pt's acute confusion. pt's CT of head was unremarkable. 2, RADHA improved, creatinine is 1.7 today from 2.7 at the admission (Baseline serum creatinine was 1.3). it is likely from pt's dehydration and lack of oral eating. pt's creatinine was 1.5 on 06/16/2019 but she had 2.7 at the re-admission at 06/19/2019 plan: continue IVF of D5 1/ NS at lower rate because of pt's SOB lab monitor 3, Fall Unwitnessed fall, found in room by staff after the patient failed to come down for breakfast, No obvious physical injury was found. Head/neck imaging was negative in the ED. pt has hx of advanced dementia order Orthostatic check, fall precaution. 4, confusion pt has advanced dementia. CT of head was unremarkable. Now pt has UTI. treat underline infection with antibiotics Anemia Now her HGB is 7.7. hold any blood thinner. continue lab monitor, since pt's daughter decline to have further workup or blood transfusion. Dyspnea pt present mild SOB and mild wheezing. will order CXR, it seems pt has slight [id number] from hydration for her RADHA and dehydration. now pt has 97% sat on room air. reduced IVF to 75CC, and followup CXR, and rise pt's bed. Elevated troponin stable, twice troponin is around 25. EKG is NSR Counseling regarding goals of care consult with palliative care, will transition to hospice care if pt continue deteriorate per pt's daughter's request Alzheimer's dementia pt has baseline hx of advance dementia, and present very confused today. continue support, will transition to hospice care if pt continue deteriorate per pt's daughter's request Essential hypertension stable. Continues on metoprolol anorexia pt refuse to eat now. pt's PLOST state no tube replacement. pt's daughter request to transition to hospice if pt continue deteriorate.
[2019-06-20] MEDS: cefTRIAXone 1 GM in SODIUM CHLORIDE 0.9% MINIBAG 100 ML IV SCH (11:30)
--- NOTE | 2019-06-20 12:56 | XRAY Report ---
Reason: wheezing, SOB Procedure Date: 06/20/2019 Accession Number: [id number] / [id number] Procedure: XR - Chest 1 View X-Ray CPT Code: 73094 Final Report FULL RESULT: EXAM: CHEST RADIOGRAPHY EXAM DATE: 06/20/2019 12:22 PM. CLINICAL HISTORY: Wheezing, SOB. COMPARISON: CHEST 1 VIEW 06/19/2019 9:06 AM. TECHNIQUE: 1 view. FINDINGS: Lungs/Pleura: Mildly increased interstitial prominence with some peribronchial cuffing. No localized infiltrate, consolidation, effusion, or pneumothorax. Mediastinum: Within exam limitations, the cardiomediastinal contour is normal. Upper lobe vessels not distended. Other: Degenerative changes. IMPRESSION: Interstitial prominence compatible with the history of asthma. Short-term increase may represent superimposed bronchitis or early mild edema. RADIA
[2019-06-20 14:44] LABS: HGB - HEMOGLOBIN 8.4 g/dL (12.0-16.0)
[2019-06-20] MEDS ORDERED: LORazepam 0.5 MG TABLET PO PRN (15:46)
--- NOTE | 2019-06-20 15:56 | CONSULTATION NOTE ---
Palliative Care Follow Up - Referral Referring Provider: Westley SHANNON Time of Visit: 10:45-11:45 Referral setting: Hospitalized patient Referral Reason: FTT/Goals of Care - Information Sources Records reviewed: Previous records reviewed History/Review of Systems obtained from: Family (called daugther Rebecca for goals of care conversation) Exam limitations: Clinical condition (patient agitated and confused/not cooperative with questioning;) - History of Present Illness Update Brief HPI Update: This is a 89-year-old woman who I met on her last hospitalization 06/14-06/16 for an COPD exacerbation, CHF exac, pulmonary hypertension, anemia for which she received 1 unit of packed red blood cells, and RADHA. Patient has been having increased and worsening dementia, her series of unfortunate events were triggered when she went to [place] for [place] on 05/27. She has spent most of her time in the hospital since that time, and on return, was overseen by her daughter at [facility], until her admit 06/14. During her stay, did have a palliative care consult, with the goals to focus on quality of life, completed a POLST, with DNA R/allow natural and selective treatments. Patient did present with decision-making capacity nor insight into her decline and health issues. Melanie is the D POA, but had spoken to her 2 other brothers, with the goal for focusing on quality of life, and treating reversible conditions. Patient had been on Eliquis at the time, was discontinued and was not restarted given patient's symptoms of GI bleeding. In the context of this conversation we did discuss patient most likely more appropriate for transitioning to memory care as her needs may out strip the assisted living. There are financial barriers of course, regarding looking at a higher level of care. The hope would been to see how she would adjust back in her own home setting, unfortunately she presents now with worsening confusion, UTI, wheezing and cough, and head of fall at [facility] that triggered her admitted yesterday. Given patient's symptoms of acute RADHA, appearance of dehydration, and patient unwilling to eat or drink currently, suspect patient did not do well over the weekend. Patient is quite weak, she does not recognize me from previous conversations, nor could she recall she had a daughter much less that she was from [place]. She did very much know though her name was "Cody" and not to call her Janet. Patient appears quite weak, she does have scattered wheezes and rhonchi throughout, she has a moist cough. Her abdomen is soft, nontender to palpation, denies any pain or distress at time of visit. Patient has not been cooperative with staff, has been choking on food and water, she does currently have a Jean catheter. Please see palliative care conversation regarding goals of care conversation with daughter. Social History - Living Situation Living arrangement: Assisted living Living Situation: Alone Support System: Patient is actually had a fairly acute decline in her dementia, she was living independently prior to last January. Her daughter did come for several weeks and help her transition to [facility]. She has actually adjusted quite well there, though currently she is confused to person and place. Patient is from [place], daughter had explored bringing her back home, she would have a 3-month period of no medical healthcare, she is quite frustrated as findings support for long-term care/hospice as far as placement in our [facility] healthcare system. Medications/Allergies - Medications Active Medication List: Active Medications Ferrous Sulfate (Feosol) 325 mg PO BIDWM [facility] Last Admin: 06/20/19 10:21 Dose: 325 mg Hydromorphone HCl (Dilaudid Inj Carp) 1 mg IVP Q2HR PRN PRN Reason: PAIN Ceftriaxone Sodium 1 gm/ (Sodium Chloride) 100 mls @ 200 mls/hr IV DAILY [facility] Last Infusion: 06/20/19 12:10 Dose: Infused Dextrose/Sodium Chloride (D5.45ns) 1,000 mls @ 75 mls/hr IV .[id number] [facility] Last Admin: 06/20/19 11:23 Dose: 75 mls/hr Lorazepam (Ativan) 1 mg PO Q6H PRN PRN Reason: Anxiety Metoprolol Succinate (Toprol Xl) 12.5 mg PO BIDWM [facility] Mineral Oil (Cavilon) 1 applic TOP PRN PRN PRN Reason: Skin Care Sodium Chloride (Normal Saline Flush 0.9%) 10 ml IVP PRN PRN PRN Reason: NEEDED PER PROVIDER ORDERS Sodium Chloride (Normal Saline Flush 0.9%) 10 ml IVP 0100,0900,1700 [facility] Last Admin: 06/20/19 07:44 Dose: Not Given Brimonidine 0.2% Ophth Drops [Alphagan P 0.2% Ophth Drops] 1 drops EACHEYE BID 06/14/19 Dorzolamide/Timolol Ophth Soln [Cosopt] 1 drops EACHEYE BID 06/15/19 Latanoprost 0.005% Ophth Drops [Xalatan Ophth Drops] 1 drops EACHEYE QPM 06/15/19 Famotidine [Pepcid] 20 mg PO BID 06/19/19 Levalbuterol [Xopenex] 3 ml INH Q4H PRN 06/19/19 Metoprolol Succinate [Toprol Xl] 12.5 mg PO BIDWM 06/19/19 Spironolactone [Aldactone] 25 mg PO DAILY 06/19/19 - Allergies Allergies/Adverse Reactions: Allergies Allergy/AdvReac Type Severity Reaction Status Date / Time lisinopril Allergy Unknown Verified 06/19/19 07:21 tramadol Allergy Unknown Verified 06/19/19 07:21 Review of Systems - Constitutional Constitutional: reports: Fatigue, Poor appetite. denies: Fever, Chills - Ears, Nose & Throat Ears, Nose & Throat: reports: Dry mouth - Cardiovascular Cardiovascular: reports: Exertional dyspnea, Decr. exercise tolerance - Respiratory Respiratory: reports: Cough (moist/rolling), SOB at rest, SOB with exertion - Gastrointestinal Gastrointestinal: reports: Poor appetite, Other (choking with drinking/needing assistance) - Genitourinary Genitourinary: reports: Other (jean catheter) - Musculoskeletal Musculoskeletal: reports: Muscle aches, Stiffness, Limited range of motion, Muscle weakness, Assistive devices (was ambulatory with walker in facililty) - Integumentary Integumentary: reports: Dryness - Neurological Neurological: reports: General weakness, Memory problems (does not know who her daughter is when asked about her) - Psychiatric Psychiatric: reports: Behavior disturbances (distressed; ;had received lorazepam so easily quieted down; did not want to talk but did allow physical exam with calm approach) - Hematologic/Lymphatic Hematologic/Lymphatic: reports: Anemia (7.7 hgb) - All Other Systems All Other Systems: reports: Other (patient unable to participate) Physical Exam - Vital Signs Vital Signs: Vital Signs x48h Temp Resp 06/20/19 11:43 36.6 C 20 - Physical Exam General Appearance: positive: Moderate distress, Anxious Eyes Bilateral: positive: Normal inspection Neck: positive: Trachea midline Cardiovascular: positive: Irregular Respiratory: positive: Wheezes, Rhonchi, Other (moist cough) Abdomen: positive: Non-tender, Soft, Nml bowel sounds. negative: Guarding, Mass Skin: positive: Pallor, Dryness Extremities: positive: Pedal edema (trace) Neurologic/Psychiatric: positive: Disoriented to person, Disoriented to place, Disoriented to time, Weakness, Slurred/abnml speech, Depressed mood/affect, Flat affect, Other (anxious) Palliative Care - POLST Patient has POLST: Yes POLST Status: DNR, Selective Treatment Pain: Comment (Denies pain thought known at baseline to have chronic back pain) Performance Status: Patient has had functional decline through last few weeks, needing assistance for ADLs, unclear what baseline she returned to on the weekend. Needing assist with bed mobility, week and bedbound since admit. Having trouble with swallowing/choking; not self feeding. - Palliative Care Discussion: Follow-up with the patient's daughter Melanie, discussed current findings. Patient acutely ill with her UTI, needing some fluids for her RADHA, her hemoglobin has dropped again, concern for recurrent GI bleeding, had received 1 unit last admit, had agreed not to pursue underlying cause as would not be able to participate or tolerate procedures/surgery. Goals were to find a focus on comfort, treat reversible conditions such as infection for comfort, and end-of-life to focus on a comfortable respectful . We did discuss in the context of her acute decline now, needing further decisions regarding how aggressive to pursue or offer interventions. She reports she did have a conversation with her brothers, are in agreement these she is taken "a deep dive". They have been worried as they have not been able to get hold of her on Wednesday, she does feel that if patient continues away she is with her poor quality of life this would not be consistent with her wishes as far as to have any of this prolonged. In the context of decisions, we needed some further clarification as what was acceptable, at this point 1yes to IV antibiotics to treat the UTI for comfort, but if she is unable to have IV access, or refuses oral meds to transition to comfort measures. 2okay for IV fluids as long as it makes sense in the context of comfort, again if patient unable to have IV access, comfort feedings. 3.- No to blood transfusion or further work-up or tests, 4 -discharge or if patient were to take a turn for the worse, the focus is on comfort and transition to comfort measures and to discharge on hospice when placement found. Discussed at length and limitations regarding [facility] as far as being able to manage unless she wanted to come back and be a caregiver, she does not feel that that would be something she could do. We discussed placement then, hospice covers services, equipment, medications but not room and board. She asked we get information regarding the different settings which would include SNF, memory care units of home place/[facility], she would be okay for [facility] [place] facility as well if needed and was appropriate for cost. Did discuss patient if she is not eating or drinking, or continues to bleed it could be days to weeks, if she does plateau out or stabilize will need a further long-term plan.She would like her to have a comfortable respectful , and is in agreement for hospice referral. Results - Lab Results Lab results reviewed: Yes Fish Bones: 06/20/19 14:42 06/20/19 05:05 Lab and Imaging Results: Lab Results x24hrs 06/20/19 06/20/19 06/20/19 Range/Units 14:42 08:50 05:05 WBC (4.8-10.8) x10^3/uL RBC (4.20-5.40) 10^6/uL Hgb 8.4 L (12.0-16.0) g/dL Hct 28.6 L (37.0-47.0) % MCV (81.0-99.0) fL MCH (27.0-31.0) pg MCHC (32.0-36.0) g/dL RDW (12.0-15.0) % Plt Count (130-450) 10^3/uL MPV (7.9-10.8) fL Reticulocyte % (Auto) (0.5-2.3) % Neut # (Auto) (1.5-6.6) 10^3/uL Absolute Retic (0.020-0.110) 10^6/uL Sodium 142 (135-145) mmol/L Potassium 3.7 (3.5-5.0) mmol/L Chloride 117 H (101-111) mmol/L Carbon Dioxide 16 L (21-32) mmol/L Anion Gap 9.0 (6-13) BUN 32 H (6-20) mg/dL Creatinine 1.7 H (0.4-1.0) mg/dL Estimated GFR (MDRD) 28 L (>89) Glucose 65 L (70-100) mg/dL Calcium 7.6 L (8.5-10.3) mg/dL Magnesium 1.9 (1.7-2.8) mg/dL Iron (28-170) ug/dL TIBC (250-450) ug/dL % Saturation (20-50) % Transferrin (192-382) mg/dL Ferritin (11.0-306.8) ng/mL Total Bilirubin 1.0 (0.2-1.0) mg/dL AST 33 (10-42) IU/L ALT 25 (10-60) IU/L Alkaline Phosphatase 41 L (42-121) IU/L Lactate Dehydrogenase (91-225) IU/L Total Creatine Kinase (22-269) IU/L Troponin I High Sens 24.9 H* (2.3-14.8) ng/L Total Protein 4.8 L (6.7-8.2) g/dL Albumin 2.6 L (3.2-5.5) g/dL Globulin 2.2 (2.1-4.2) g/dL Albumin/Globulin Ratio 1.2 (1.0-2.2) Vitamin B12 (180-914) pg/mL 06/20/19 06/19/19 06/19/19 Range/Units 05:05 19:46 19:46 WBC 8.7 (4.8-10.8) x10^3/uL RBC 3.64 L (4.20-5.40) 10^6/uL Hgb 7.7 L (12.0-16.0) g/dL Hct 26.6 L (37.0-47.0) % MCV 73.1 L (81.0-99.0) fL MCH 21.2 L (27.0-31.0) pg MCHC 28.9 L (32.0-36.0) g/dL RDW 23.0 H (12.0-15.0) % Plt Count 368 (130-450) 10^3/uL MPV 9.9 (7.9-10.8) fL Reticulocyte % (Auto) (0.5-2.3) % Neut # (Auto) 5.4 (1.5-6.6) 10^3/uL Absolute Retic (0.020-0.110) 10^6/uL Sodium (135-145) mmol/L Potassium (3.5-5.0) mmol/L Chloride (101-111) mmol/L Carbon Dioxide (21-32) mmol/L Anion Gap (6-13) BUN (6-20) mg/dL Creatinine (0.4-1.0) mg/dL Estimated GFR (MDRD) (>89) Glucose (70-100) mg/dL Calcium (8.5-10.3) mg/dL Magnesium (1.7-2.8) mg/dL Iron (28-170) ug/dL TIBC (250-450) ug/dL % Saturation (20-50) % Transferrin (192-382) mg/dL Ferritin 52.3 (11.0-306.8) ng/mL Total Bilirubin (0.2-1.0) mg/dL AST (10-42) IU/L ALT (10-60) IU/L Alkaline Phosphatase (42-121) IU/L Lactate Dehydrogenase 262 H (91-225) IU/L Total Creatine Kinase (22-269) IU/L Troponin I High Sens (2.3-14.8) ng/L Total Protein (6.7-8.2) g/dL Albumin (3.2-5.5) g/dL Globulin (2.1-4.2) g/dL Albumin/Globulin Ratio (1.0-2.2) Vitamin B12 823 (180-914) pg/mL 06/19/19 06/19/19 06/19/19 Range/Units 19:46 19:46 19:46 WBC 9.8 (4.8-10.8) x10^3/uL RBC 4.16 L 4.14 L (4.20-5.40) 10^6/uL Hgb 8.9 L (12.0-16.0) g/dL Hct 30.5 L (37.0-47.0) % MCV 73.7 L (81.0-99.0) fL MCH 21.5 L (27.0-31.0) pg MCHC 29.2 L (32.0-36.0) g/dL RDW 23.3 H (12.0-15.0) % Plt Count 371 (130-450) 10^3/uL MPV 9.5 (7.9-10.8) fL Reticulocyte % (Auto) 2.16 (0.5-2.3) % Neut # (Auto) (1.5-6.6) 10^3/uL Absolute Retic 0.090 (0.020-0.110) 10^6/uL Sodium (135-145) mmol/L Potassium (3.5-5.0) mmol/L Chloride (101-111) mmol/L Carbon Dioxide (21-32) mmol/L Anion Gap (6-13) BUN (6-20) mg/dL Creatinine (0.4-1.0) mg/dL Estimated GFR (MDRD) (>89) Glucose (70-100) mg/dL Calcium (8.5-10.3) mg/dL Magnesium (1.7-2.8) mg/dL Iron 16 L (28-170) ug/dL TIBC 294 (250-450) ug/dL % Saturation 5 L (20-50) % Transferrin 210 (192-382) mg/dL Ferritin (11.0-306.8) ng/mL Total Bilirubin (0.2-1.0) mg/dL AST (10-42) IU/L ALT (10-60) IU/L Alkaline Phosphatase (42-121) IU/L Lactate Dehydrogenase (91-225) IU/L Total Creatine Kinase (22-269) IU/L Troponin I High Sens (2.3-14.8) ng/L Total Protein (6.7-8.2) g/dL Albumin (3.2-5.5) g/dL Globulin (2.1-4.2) g/dL Albumin/Globulin Ratio (1.0-2.2) Vitamin B12 (180-914) pg/mL 06/19/19 Range/Units 19:46 WBC (4.8-10.8) x10^3/uL RBC (4.20-5.40) 10^6/uL Hgb (12.0-16.0) g/dL Hct (37.0-47.0) % MCV (81.0-99.0) fL MCH (27.0-31.0) pg MCHC (32.0-36.0) g/dL RDW (12.0-15.0) % Plt Count (130-450) 10^3/uL MPV (7.9-10.8) fL Reticulocyte % (Auto) (0.5-2.3) % Neut # (Auto) (1.5-6.6) 10^3/uL Absolute Retic (0.020-0.110) 10^6/uL Sodium 143 (135-145) mmol/L Potassium 3.9 (3.5-5.0) mmol/L Chloride 114 H (101-111) mmol/L Carbon Dioxide 16 L (21-32) mmol/L Anion Gap 13.0 (6-13) BUN 41 H (6-20) mg/dL Creatinine 2.0 H (0.4-1.0) mg/dL Estimated GFR (MDRD) 24 L (>89) Glucose 68 L (70-100) mg/dL Calcium 8.1 L (8.5-10.3) mg/dL Magnesium (1.7-2.8) mg/dL Iron (28-170) ug/dL TIBC (250-450) ug/dL % Saturation (20-50) % Transferrin (192-382) mg/dL Ferritin (11.0-306.8) ng/mL Total Bilirubin (0.2-1.0) mg/dL AST (10-42) IU/L ALT (10-60) IU/L Alkaline Phosphatase (42-121) IU/L Lactate Dehydrogenase (91-225) IU/L Total Creatine Kinase 266 (22-269) IU/L Troponin I High Sens (2.3-14.8) ng/L Total Protein (6.7-8.2) g/dL Albumin (3.2-5.5) g/dL Globulin (2.1-4.2) g/dL Albumin/Globulin Ratio (1.0-2.2) Vitamin B12 (180-914) pg/mL Impression and Recommendations - Palliative Care Impression: This is an 89-year-old woman who presents with yet again acute RADHA, worsening COPD, progressive dementia, and now recurrent anemia. She has an acute UTI, and altered mental status. In discussion with daughter, requests goals to be focused on comfort, and in agreement for patient to transition to hospice on discharge.Palliative care continue to provide support for transition plan, and evaluation for appropriate setting. Recommendations/Counseling Done: 1. Dementia with behavioral disturbances. This is multifactorial, including acute infection and most likely delirium from hospitalizations. Patient continues present with fairly rapid cognitive decline, does not recognize she is in the hospital, does appear to be confused to her surroundings, does not have any insight to her current condition. She does seem intermittently anxious, she currently has lorazepam available for anxiety. Patient is being treated acutely for UTI, would review if patient may be appropriate for quetiapine 12.5 mg at at bedtime and titrate to effect if patient continues to have worsening agitation/distress and / or short acting haloperidol. 2. Anemia of unknown etiology. Patient was on Eliquis, has been discontinued, has had no recent stools. Patient does not present with abdominal pain or distress, hemoglobin despite 1 unit and increased pain with globin last admit on discharge, now at 7.7. Conversation with daughter regarding benefits and b urdens of moving forward with transfusion versus focusing on comfort, agreed no further testing/or work-up regarding etiology. Declined at this point in time further transfusions. 3. COPD exacerbation. Patient presents with wheezing and rhonchi, mild distress with breathing effort. Patient is not hypoxic, does have underlying baseline COPD, recently treated for exacerbation. 4. Advanced care planning. Patient's quality of life continues to deteriorate, counseling and family conference on phone with Melanie who is the D POA, she has been talking to her brothers, do perceive patient is taken a signficant decline, patient does not have family in the area to oversee or provide care. Daughter has taken time off to transition her into [facility] from her home in the fall, and recently here for most recent transition home from [place]/and then recent hospitalization. Is wanting a comfort focused approach, and transition to hospice on discharge from hospital. Complicating factor will be finding appropriate setting for patient, with higher level of care and acute confusion and declining functional and cognitive status, requires more assistance and oversight. Time Spent: 60 minutes with greater than 50% of this done in counseling regarding goals of care with daughter, coordination of care with hospitalist/inpatient team. Information passed on for discharge planning for placement and concerns regarding placement issues. Report given to hospice biomedical analytical scientist.
[2019-06-20] MEDS: METOPROLOL SUCCINATE 25 MG TABLET PO SCH (17:27)
[2019-06-20] MEDS: LORazepam 2 MG/ML VIAL IVP PRN (17:58)
[2019-06-20] MEDS: DEXTROSE 5%-0.45% NACL 1,000 ML IV SCH (22:57)
[2019-06-21] MEDS: LORazepam 2 MG/ML VIAL IVP PRN ×2 (05:17→11:36)
[2019-06-21] MEDS: SODIUM CHLORIDE FLUSH 0.9% 10 ML SYRINGE IVP SCH ×3 (05:17→17:41)
[2019-06-21 06:22] LABS: ALBUMIN 2.6 g/dL (3.2-5.5); ALBUMIN/GLOBULIN RATIO 0.9 (1.0-2.2); BILIRUBIN,TOTAL 0.4 mg/dL (0.2-1.0); CALCIUM 8.1 mg/dL (8.5-10.3); CREATININE 1.3 mg/dL (0.4-1.0); TOTAL PROTEIN 5.4 g/dL (6.7-8.2)
[2019-06-21] MEDS: cefTRIAXone 1 GM in SODIUM CHLORIDE 0.9% MINIBAG 100 ML IV SCH (08:17)
[2019-06-21] MEDS: FERROUS SULFATE 325 MG TABLET PO SCH ×2 (08:18→17:41)
[2019-06-21] MEDS: METOPROLOL SUCCINATE 25 MG TABLET PO SCH ×2 (08:18→17:41)
[2019-06-21 09:06] LABS: HGB - HEMOGLOBIN 9.1 g/dL (12.0-16.0); MEAN CORPUSCULAR HEMOGLOBIN 21.3 pg (27.0-31.0); MEAN CORPUSCULAR HGB CONC 29.5 g/dL (32.0-36.0); MEAN CORPUSCULAR VOLUME 72.1 fL (81.0-99.0); NEUTROPHILS # (AUTO) 6.8 10^3/uL (1.5-6.6); NEUTROPHILS % (AUTO) 69.2 %; RED BLOOD COUNT 4.27 10^6/uL (4.20-5.40); RED CELL DISTRIBUTION WIDTH 23.5 % (12.0-15.0); WHITE BLOOD COUNT 9.8 x10^3/uL (4.8-10.8)
[2019-06-21] MEDS: POTASSIUM CHLOR 10 MEQ/100 ML 10 MEQ/100 ML BAG IV SCH ×3 (09:24→13:08)
[2019-06-21] MEDS: SODIUM CHLORIDE FLUSH 0.9% 10 ML SYRINGE IVP PRN (11:36)
[2019-06-21] MEDS ORDERED: LEVALBUTEROL 1.25 MG/3 ML NEB INH PRN (12:46)
[2019-06-21] MEDS ORDERED: oxyCODONE 5 MG TABLET PO PRN (12:46)
[2019-06-21] MEDS: DEXTROSE 5%-0.45% NACL 1,000 ML IV SCH (13:08)
[2019-06-21] MEDS ORDERED: DEXTROSE 5%-0.45% NACL 1,000 ML IV SCH (17:02)
--- NOTE | 2019-06-21 17:49 | PROVIDER PROGRESS NOTE ---
Subjective - Prog Note Date Prog Note Date: 06/21/19 - Subjective Pt reports feeling: Improved Subjective: pt is still confused as her baseline as hx of advanced dementia. pt's family change their mind, per manager social responsibility report, first pt's family will take a cab and grape picker pt and fly back to [place]. Then pt's daughter called [facility] to request private caregiver hired so that pt can return to [facility]. [facility] to assess pt on tomorrow. Since pt's family changed their mind of hospice care, hospice refer was cancell ed. Current Medications - Current Medications Current Medications: Active Medications Budesonide (Pulmicort) 0.5 mg INH RTBID MARY Ferrous Sulfate (Feosol) 325 mg PO BIDWM [facility] Last Admin: 06/21/19 17:41 Dose: Not Given Ceftriaxone Sodium 1 gm/ (Sodium Chloride) 100 mls @ 200 mls/hr IV DAILY [facility] Last Infusion: 06/21/19 09:01 Dose: Infused Dextrose/Sodium Chloride (D5.45ns) 1,000 mls @ 75 mls/hr IV .[id number] [facility] Last Admin: 06/21/19 17:50 Dose: 75 mls/hr Levalbuterol HCl (Xopenex) 1.25 mg INH Q4H PRN PRN Reason: Shortness of Air/Wheezing Lorazepam (Ativan Inj (Vial)) 0.5 mg IVP Q6H PRN PRN Reason: Anxiety Last Admin: 06/21/19 11:36 Dose: 0.5 mg Metoprolol Succinate (Toprol Xl) 12.5 mg PO BIDWM [facility] Last Admin: 06/21/19 17:41 Dose: Not Given Mineral Oil (Cavilon) 1 applic TOP PRN PRN PRN Reason: Skin Care Montelukast Sodium (Singulair) 10 mg PO QPM [facility]ARY Oxycodone HCl (Roxicodone) 2.5 mg PO TID PRN PRN Reason: PAIN Sodium Chloride (Normal Saline Flush 0.9%) 10 ml IVP PRN PRN PRN Reason: NEEDED PER PROVIDER ORDERS Last Admin: 06/21/19 11:36 Dose: 10 ml Sodium Chloride (Normal Saline Flush 0.9%) 10 ml IVP 0100,0900,1700 [facility] Last Admin: 06/21/19 17:41 Dose: Not Given Brimonidine 0.2% Ophth Drops [Alphagan P 0.2% Ophth Drops] 1 drops EACHEYE BID 06/14/19 Dorzolamide/Timolol Ophth Soln [Cosopt] 1 drops EACHEYE BID 06/15/19 Latanoprost 0.005% Ophth Drops [Xalatan Ophth Drops] 1 drops EACHEYE QPM 06/15/19 Famotidine [Pepcid] 20 mg PO BID 06/19/19 Levalbuterol [Xopenex] 3 ml INH Q4H PRN 06/19/19 Metoprolol Succinate [Toprol Xl] 12.5 mg PO BIDWM 06/19/19 Spironolactone [Aldactone] 25 mg PO DAILY 06/19/19 Objective - Vital Signs/Intake & Output Reviewed Vital Signs: Yes Vital Signs: Vital Signs x48h Temp Pulse Pulse Pulse Pulse Pulse Resp 06/21/19 16:52 37 C 98 26 H 06/21/19 16:07 38.1 C H 102 H 16 06/21/19 12:41 37.1 C 98 20 06/21/19 11:16 113 H 107 H 106 H BP BP BP BP Pulse Ox 06/21/19 16:52 06/21/19 16:07 146/66 H 97 06/21/19 12:41 136/67 H 100 06/21/19 11:16 146/71 H 159/107 H 156/141 H Intake & Output: Intake & Output 06/18/19 06/19/19 06/20/19 06/21/19 23:59 23:59 23:59 23:59 Intake Total 2640 3163.500 1727.647 Output Total 900 1800 1400 Balance 1740 1363.500 327.647 - Objective General Appearance: positive: No acute distress, Alert. negative: Lethargic Eyes Bilateral: positive: Normal inspection, PERRL, EOMI, No lid inflammation ENT: positive: ENT inspection nml, Pharynx nml, No signs of dehydration. negative: Purulent nasal drainage Neck: positive: Nml inspection, Thyroid nml, No JVD, Trachea midline. negative: Thyromegaly, Lymphadenopathy (R), Lymphadenopathy (L), Stiff neck, Tracheal deviation Respiratory: positive: Chest non-tender, No respiratory distress, Wheezes Cardiovascular: positive: Regular rate & rhythm, No murmur, No gallop. negative: Irregularly irregular, Extrasystoles, Tachycardia, Bradycardia, JVD present, Systolic murmur, Diastolic murmur Peripheral Pulses: 2+ Radial (R), 2+ Radial (L), 2+ Dorsalis pedis (R), 2+ Dorsalis pedis (L) Abdomen: positive: Non-tender, No organomegaly, Nml bowel sounds, No distention. negative: Tenderness, Guarding, Rebound Back: positive: Nml inspection. negative: CVA tenderness (R), CVA tenderness (L) Skin: positive: Color nml, No rash, Warm, Dry. negative: Cyanosis, Diaphoresis, Pallor Extremities: positive: Non-tender, Full ROM, Nml appearance. negative: Calf tenderness, Javon's sign/cords Neurologic/Psychiatric: positive: Sensation nml. negative: Weakness, Sensory loss, Facial droop, Slurred/abnml speech, Depressed mood/affect - Lab Results Fish Bones: 06/21/19 09:00 06/21/19 06:00 Other Labs: Lab Results x24hrs 06/21/19 06/21/19 Range/Units 09:00 06:00 WBC 9.8 (4.8-10.8) x10^3/uL RBC 4.27 (4.20-5.40) 10^6/uL Hgb 9.1 L (12.0-16.0) g/dL Hct 30.8 L (37.0-47.0) % MCV 72.1 L (81.0-99.0) fL MCH 21.3 L (27.0-31.0) pg MCHC 29.5 L (32.0-36.0) g/dL RDW 23.5 H (12.0-15.0) % Plt Count 360 (130-450) 10^3/uL MPV 9.0 (7.9-10.8) fL Neut # (Auto) 6.8 H (1.5-6.6) 10^3/uL Sodium 137 (135-145) mmol/L Potassium 3.2 L (3.5-5.0) mmol/L Chloride 110 (101-111) mmol/L Carbon Dioxide 21 (21-32) mmol/L Anion Gap 6.0 (6-13) BUN 11 (6-20) mg/dL Creatinine 1.3 H (0.4-1.0) mg/dL Estimated GFR (MDRD) 39 L (>89) Glucose 118 H (70-100) mg/dL Calcium 8.1 L (8.5-10.3) mg/dL Total Bilirubin 0.4 (0.2-1.0) mg/dL AST 28 (10-42) IU/L ALT 22 (10-60) IU/L Alkaline Phosphatase 47 (42-121) IU/L Total Protein 5.4 L (6.7-8.2) g/dL Albumin 2.6 L (3.2-5.5) g/dL Globulin 2.8 (2.1-4.2) g/dL Albumin/Globulin Ratio 0.9 L (1.0-2.2) ABX Reporting Has patient been on IV antibiotics over the past 48 hours?: Yes Sepsis Event Note (H) - Evaluation Current Stage of Sepsis: Ruled out Assessment/Plan - Problem List (1) Fever Impression: 06/21 pt has fever at 38.1. pt has UTI. UA culture reveal today pt has two bacterial: citrobacter farmeri, and staph lentus, both are high resistance to many antibiotics. Gentamicin is sensitive to both bacteria. pt was treated with Rocephin on yesterday, which pt's bacteria might resistance to Rocephin. start on Gentamicin per pharmacy for dosage order blood culture continue IVF UTI 06/21 UA culture reveal today pt has two bacterial: citrobacter farmeri, and staph lentus, both are high resistance to many antibiotics. Gentamicin is sensitive to both bacteria. pt was treated with Rocephin on yesterday, which pt's bacteria might resistance to Rocephin. RADHA 06/21 continue improved to 1.3. reduced IVF to 75 cc/h, continue lab monitor improved, creatinine is 1.7 today from 2.7 at the admission (Baseline serum creatinine was 1.3). it is likely from pt's dehydration and lack of oral eating. pt's creatinine was 1.5 on 06/16/2019 but she had 2.7 at the re-admission at 06/19/2019 plan: continue IVF of D5 1/2 NS at lower rate because of pt's SOB lab monitor Fall Unwitnessed fall, found in room by staff after the patient failed to come down for breakfast, No obvious physical injury was found. Head/neck imaging was negative in the ED. pt has hx of advanced dementia order Orthostatic check, fall precaution. wheezing with hx of asthma 06/21 pt present wheezing, CXR reveals asthma as her hx. pt has 97% sat on room air. pt did not present respiratory distress continue Xopenex, start with pulmocort, singular start lower dosage of prednisone provide O2 as needed dementia with confusion pt has advanced dementia. CT of head was unremarkable. Now pt has UTI. treat underline infection with antibiotics iron deficiency of Anemia 06/21 improved. today her HGB is 9.1, continue iron, and lab monitor Now her HGB is 7.7. hold any blood thinner. continue lab monitor, since pt's daughter decline to have further workup or blood transfusion. Dyspnea 06/21 improved for wheezing and dyspnea. pt did not present respiratory distress start treatment for pt's asthma as above. pt present mild SOB and mild wheezing. will order CXR, it seems pt has slight [id number] from hydration for her RADHA and dehydration. now pt has 97% sat on room air. reduced IVF to 75CC, and followup CXR, and rise pt's bed. Elevated troponin stable, twice troponin is around 25. EKG is NSR Counseling regarding goals of care consult with palliative care, will transition to hospice care if pt continue deteriorate per pt's daughter's request Essential hypertension stable. Continues on metoprolol anorexia 06/21 slightly improved. pt only ate a few bites on lunch and dinner. recommend pt followup with hospice as out-pt pt refuse to eat now. pt's PLOST state no tube replacement. pt's daughter request to transition to hospice if pt continue deteriorate.
[2019-06-21] MEDS ORDERED: D5.45NS W/20 MEQ KCL 1,000 ML IV SCH (18:00)
[2019-06-21] MEDS ORDERED: GENTAMICIN PER PHARMACY 80 MG in SODIUM CHLORIDE 0.9% 100ML 100 ML IV SCH (19:00)
[2019-06-21] MEDS ORDERED: GENTAMICIN 320 MG in SODIUM CHLORIDE 0.9% 100ML 100 ML IV SCH (20:00)
[2019-06-21] MEDS: predniSONE 20 MG TABLET PO SCH (20:50)
[2019-06-21] MEDS: MONTELUKAST 10 MG TABLET PO SCH (20:51)
[2019-06-21] MEDS: HEPARIN 5,000 UNIT/ML VIAL SUBQ SCH (21:45)
[2019-06-21] MEDS: BUDESONIDE 0.5 MG/2 ML NEB INH SCH (21:46)
[2019-06-22] MEDS: LORazepam 2 MG/ML VIAL IVP PRN ×2 (04:49→11:28)
[2019-06-22] MEDS: SODIUM CHLORIDE FLUSH 0.9% 10 ML SYRINGE IVP SCH ×3 (04:50→16:44)
[2019-06-22] MEDS ORDERED: HALOPERIDOL 5 MG/ML VIAL IVP ONE ×2 (06:12→12:18)
[2019-06-22 06:32] LABS: ALBUMIN 2.7 g/dL (3.2-5.5); ALBUMIN/GLOBULIN RATIO 0.9 (1.0-2.2); BILIRUBIN,TOTAL 0.9 mg/dL (0.2-1.0); CALCIUM 7.9 mg/dL (8.5-10.3); CREATININE 1.2 mg/dL (0.4-1.0); TOTAL PROTEIN 5.6 g/dL (6.7-8.2)
[2019-06-22 06:52] LABS: GENTAMICIN,RANDOM 9.2 ug/mL
[2019-06-22] MEDS: BUDESONIDE 0.5 MG/2 ML NEB INH SCH ×2 (07:32→18:10)
[2019-06-22] MEDS: FERROUS SULFATE 325 MG TABLET PO SCH ×2 (07:59→16:42)
[2019-06-22 08:11] LABS: HGB - HEMOGLOBIN 9.1 g/dL (12.0-16.0); MEAN CORPUSCULAR HEMOGLOBIN 21.7 pg (27.0-31.0); MEAN CORPUSCULAR HGB CONC 30.2 g/dL (32.0-36.0); MEAN CORPUSCULAR VOLUME 71.7 fL (81.0-99.0); MEAN PLATELET VOLUME 9.3 fL (7.9-10.8); NEUTROPHILS # (AUTO) 6.9 10^3/uL (1.5-6.6); NEUTROPHILS % (AUTO) 68.1 %; RED BLOOD COUNT 4.2 10^6/uL (4.20-5.40); RED CELL DISTRIBUTION WIDTH 23.4 % (12.0-15.0); WHITE BLOOD COUNT 10.2 x10^3/uL (4.8-10.8)
--- NOTE | 2019-06-22 08:48 | XRAY Report ---
Reason: sob Procedure Date: 06/22/2019 Accession Number: [id number] / [id number] Procedure: XR - Chest 1 View X-Ray CPT Code: 91806 Final Report FULL RESULT: EXAM: CHEST RADIOGRAPHY EXAM DATE: 06/22/2019 08:16 AM. CLINICAL HISTORY: Sob. COMPARISON: CHEST 1 VIEW 06/20/2019 12:05 PM. TECHNIQUE: 1 view. FINDINGS: Lungs/Pleura: Increased lung markings. No focal opacities. No effusions. Mediastinum: Stable Other: None. IMPRESSION: Stable chest with increased lung markings suggestive of airways disease RADIA
[2019-06-22] MEDS: predniSONE 20 MG TABLET PO SCH ×2 (08:56→09:12)
[2019-06-22] MEDS: METOPROLOL SUCCINATE 25 MG TABLET PO SCH ×3 (08:56→16:43)
[2019-06-22] MEDS: HEPARIN 5,000 UNIT/ML VIAL SUBQ SCH ×3 (08:57→20:02)
[2019-06-22] MEDS: SACCHAROMYCES BOULARDII 250 MG CAPSULE PO SCH ×2 (09:10→16:43)
[2019-06-22] MEDS: VANCOMYCIN 125 MG CAPSULE PO SCH ×4 (09:10→20:06)
[2019-06-22] MEDS: SODIUM CHLORIDE FLUSH 0.9% 10 ML SYRINGE IVP PRN ×2 (11:28→12:07)
[2019-06-22] MEDS: D5.45NS W/20 MEQ KCL 1,000 ML IV SCH ×2 (12:07→12:17)
[2019-06-22] MEDS ORDERED: MORPHINE SOL 10 MG/0.5 ML SYRINGE PO PRN (12:19)
--- NOTE | 2019-06-22 14:23 | PROVIDER PROGRESS NOTE ---
Subjective - Prog Note Date Prog Note Date: 06/22/19 - Subjective Subjective: pt is still confused and agitated. pt has hx of advanced dementia. pt refused to take meds in the morning and ate very limited. pt was found fever on yesterday, and pt was found to have C.Diff diarrhea today morning. it is critical for pt to take meds. Palliative care provider called pt's daughter to discuss with pt's daughter if continue the previous care plan of hospice care. Lisa report she is waiting for their call back. social psychologist report pt is accepted by [facility] for continuing care I called pt's daughter Rebecca by [phone]. she said she can not answer me now, she with her brothers are on the way to come to hospital on tomorrow morning. Current Medications - Current Medications Current Medications: Active Medications Budesonide (Pulmicort) 0.5 mg INH RTBID [facility] Last Admin: 06/22/19 07:32 Dose: 0.5 mg Ferrous Sulfate (Feosol) 325 mg PO BIDWM [facility] Last Admin: 06/22/19 07:59 Dose: Not Given Heparin Sodium (Porcine) () 2,500 unit SUBQ BID [facility] Last Admin: 06/22/19 09:13 Dose: Not Given Gentamicin Sulfate 320 mg/ (Sodium Chloride) 108 mls @ 100 mls/hr IV Q48H [facility] Potassium Chloride/Dextrose/Sod Cl (D5.45ns W/20 Meq Kcl) 1,000 mls @ 83.333 mls/hr IV .Q12H [facility] Last Admin: 06/22/19 12:17 Dose: 83.333 mls/hr Levalbuterol HCl (Xopenex) 1.25 mg INH Q4H PRN PRN Reason: Shortness of Air/Wheezing Lorazepam (Ativan Inj (Vial)) 0.5 mg IVP Q6H PRN PRN Reason: Anxiety Last Admin: 06/22/19 11:28 Dose: 0.5 mg Metoprolol Succinate (Toprol Xl) 12.5 mg PO BIDWM [facility] Last Admin: 06/22/19 09:11 Dose: Not Given Metoprolol Tartrate (Lopressor Inj) 5 mg IVP Q6H PRN PRN Reason: Tachycardia Mineral Oil (Cavilon) 1 applic TOP PRN PRN PRN Reason: Skin Care Montelukast Sodium (Singulair) 10 mg PO QPM [facility] Last Admin: 06/21/19 20:51 Dose: Not Given Morphine Sulfate (Roxanol) 5 mg PO Q4HR PRN PRN Reason: PAIN Prednisone (Deltasone) 20 mg PO DAILYWM [facility] Saccharomyces Boulardii (Florastor) 250 mg PO BIDWM [facility] Last Admin: 06/22/19 09:10 Dose: Not Given Sodium Chloride (Normal Saline Flush 0.9%) 10 ml IVP PRN PRN PRN Reason: NEEDED PER PROVIDER ORDERS Last Admin: 06/22/19 12:07 Dose: 10 ml Sodium Chloride (Normal Saline Flush 0.9%) 10 ml IVP 0100,0900,1700 [facility] Last Admin: 06/22/19 09:09 Dose: Not Given Vancomycin HCl (Vancocin) 125 mg PO QID [facility] Last Admin: 06/22/19 13:44 Dose: Not Given Brimonidine 0.2% Ophth Drops [Alphagan P 0.2% Ophth Drops] 1 drops EACHEYE BID 06/14/19 Dorzolamide/Timolol Ophth Soln [Cosopt] 1 drops EACHEYE BID 06/15/19 Latanoprost 0.005% Ophth Drops [Xalatan Ophth Drops] 1 drops EACHEYE QPM 06/15/19 Famotidine [Pepcid] 20 mg PO BID 06/19/19 Levalbuterol [Xopenex] 3 ml INH Q4H PRN 06/19/19 Metoprolol Succinate [Toprol Xl] 12.5 mg PO BIDWM 06/19/19 Spironolactone [Aldactone] 25 mg PO DAILY 06/19/19 Objective - Vital Signs/Intake & Output Vital Signs: Vital Signs x48h Temp Pulse Pulse Pulse Resp BP BP 06/22/19 09:11 06/22/19 09:10 109 H 138/66 H 06/22/19 07:46 36.3 C L 106 H 24 112/82 H 06/22/19 07:34 100 24 Pulse Ox 06/22/19 09:11 100 06/22/19 09:10 06/22/19 07:46 97 06/22/19 07:34 Intake & Output: Intake & Output 06/19/19 06/20/19 06/21/19 06/22/19 23:59 23:59 23:59 23:59 Intake Total 2640 3163.500 2190.650 905 Output Total 900 1800 1400 1100 Balance 1740 1363.500 790.650 -195 - Objective General Appearance: positive: Alert, Mild distress. negative: Lethargic Eyes Bilateral: positive: Normal inspection, PERRL, No lid inflammation ENT: positive: ENT inspection nml, No signs of dehydration. negative: Purulent nasal drainage Neck: positive: Nml inspection, Thyroid nml, No JVD, Trachea midline. negative: Thyromegaly, Lymphadenopathy (R), Lymphadenopathy (L), Stiff neck, Tracheal deviation Respiratory: positive: Chest non-tender, No respiratory distress. negative: Whe ezes, Rales, Rhonchi Cardiovascular: positive: No murmur, No gallop, Tachycardia. negative: Irregularly irregular, Extrasystoles, Bradycardia, JVD present, Systolic murmur, Diastolic murmur Peripheral Pulses: 2+ Radial (R), 2+ Radial (L), 2+ Dorsalis pedis (R), 2+ Dorsalis pedis (L) Abdomen: positive: Non-tender, No organomegaly, Nml bowel sounds, No distention. negative: Tenderness, Guarding, Rebound Back: positive: Nml inspection Skin: positive: Color nml, No rash, Warm, Dry. negative: Cyanosis, Diaphoresis, Pallor Extremities: positive: Non-tender, Full ROM, Nml appearance. negative: Calf tenderness Neurologic/Psychiatric: positive: Sensation nml. negative: Weakness, Sensory loss, Facial droop, Slurred/abnml speech - Lab Results Fish Bones: 06/22/19 08:04 06/22/19 06:10 Other Labs: Lab Results x24hrs 06/22/19 06/22/19 06/22/19 Range/Units 08:04 06:10 06:10 WBC 10.2 (4.8-10.8) x10^3/uL RBC 4.20 (4.20-5.40) 10^6/uL Hgb 9.1 L (12.0-16.0) g/dL Hct 30.1 L (37.0-47.0) % MCV 71.7 L (81.0-99.0) fL MCH 21.7 L (27.0-31.0) pg MCHC 30.2 L (32.0-36.0) g/dL RDW 23.4 H (12.0-15.0) % Plt Count 324 (130-450) 10^3/uL MPV 9.3 (7.9-10.8) fL Neut # (Auto) 6.9 H (1.5-6.6) 10^3/uL Sodium 136 (135-145) mmol/L Potassium 3.8 (3.5-5.0) mmol/L Chloride 107 (101-111) mmol/L Carbon Dioxide 19 L (21-32) mmol/L Anion Gap 10.0 (6-13) BUN 7 (6-20) mg/dL Creatinine 1.2 H (0.4-1.0) mg/dL Estimated GFR (MDRD) 42 L (>89) Glucose 106 H (70-100) mg/dL Calcium 7.9 L (8.5-10.3) mg/dL Total Bilirubin 0.9 (0.2-1.0) mg/dL AST 31 (10-42) IU/L ALT 23 (10-60) IU/L Alkaline Phosphatase 45 (42-121) IU/L Total Protein 5.6 L (6.7-8.2) g/dL Albumin 2.7 L (3.2-5.5) g/dL Globulin 2.9 (2.1-4.2) g/dL Albumin/Globulin Ratio 0.9 L (1.0-2.2) Stl C. diff Tox B Gene (NEGATIVE) Last Dose Date Unknown Last Dose Time Unknown Random Gentamicin 9.2 ug/mL 06/22/19 Range/Units 05:15 WBC (4.8-10.8) x10^3/uL RBC (4.20-5.40) 10^6/uL Hgb (12.0-16.0) g/dL Hct (37.0-47.0) % MCV (81.0-99.0) fL MCH (27.0-31.0) pg MCHC (32.0-36.0) g/dL RDW (12.0-15.0) % Plt Count (130-450) 10^3/uL MPV (7.9-10.8) fL Neut # (Auto) (1.5-6.6) 10^3/uL Sodium (135-145) mmol/L Potassium (3.5-5.0) mmol/L Chloride (101-111) mmol/L Carbon Dioxide (21-32) mmol/L Anion Gap (6-13) BUN (6-20) mg/dL Creatinine (0.4-1.0) mg/dL Estimated GFR (MDRD) (>89) Glucose (70-100) mg/dL Calcium (8.5-10.3) mg/dL Total Bilirubin (0.2-1.0) mg/dL AST (10-42) IU/L ALT (10-60) IU/L Alkaline Phosphatase (42-121) IU/L Total Protein (6.7-8.2) g/dL Albumin (3.2-5.5) g/dL Globulin (2.1-4.2) g/dL Albumin/Globulin Ratio (1.0-2.2) Stl C. diff Tox B Gene POSITIVE A* (NEGATIVE) Last Dose Date Last Dose Time Random Gentamicin ug/mL ABX Reporting Has patient been on IV antibiotics over the past 48 hours?: Yes Assessment/Plan - Problem List (1) C. difficile diarrhea Impression: pt was found to have C.Diff positive. pt was reported she had one diarrhea at this morning with loose brown color stool. pt is started with PO Vancomycin. but pt refused to take her meds, it is likely from his dementia and confusion as her baseline, it is unlikely pt has acute delirium. continue IVF of with D5 1/2 NS continue lab monitor, and vital monitor fever 06/22 pt has no more fever on last night, blood culture is pending. WBC is in the normal arrange. CXR reveals unremarkable for acute finding. it is likely from her UTI continue antibiotics Gentamicin continue IVF 06/21 pt has fever at 38.1. pt has UTI. UA culture reveal today pt has two bacterial: citrobacter farmeri, and staph lentus, both are high resistance to many antibiotics. Gentamicin is sensitive to both bacteria. pt was treated with Rocephin on yesterday, which pt's bacteria might resistance to Rocephin. start on Gentamicin per pharmacy for dosage order blood culture continue IVF UTI 06/22 continue antibiotics 06/21 UA culture reveal today pt has two bacterial: citrobacter farmeri, and staph lentus, both are high resistance to many antibiotics. Gentamicin is sensitive to both bacteria. pt was treated with Rocephin on yesterday, which pt's bacteria might resistance to Rocephin. RADHA 06/22 improved, creatinine is 1.2, continue IVF, and lab monitor 06/21 continue improved to 1.3. reduced IVF to 75 cc/h, continue lab monitor improved, creatinine is 1.7 today from 2.7 at the admission (Baseline serum creatinine was 1.3). it is likely from pt's dehydration and lack of oral eating. pt's creatinine was 1.5 on 06/16/2019 but she had 2.7 at the re-admission at 06/19/2019 plan: continue IVF of D5 1/2 NS at lower rate because of pt's SOB lab monitor Fall Unwitnessed fall, found in room by staff after the patient failed to come down for breakfast, No obvious physical injury was found. Head/neck imaging was negative in the ED. pt has hx of advanced dementia order Orthostatic check, fall precaution. wheezing with hx of asthma 06/22 resolved wheezing lung sound. pt has 100% sat on room air reduced prednisone to 20 mg daily, continue albuterol PRN, pulmocort, single treatment 06/21 pt present wheezing, CXR reveals asthma as her hx. pt has 97% sat on room air. pt did not present respiratory distress continue Xopenex, start with pulmocort, singular start lower dosage of prednisone provide O2 as needed dementia with confusion 06/22 pt continue confusion with agitation. pt is given once Haldol to calm down her agitation. pt has advanced dementia. CT of head was unremarkable. Now pt has UTI. treat underline infection with antibiotics iron deficiency of Anemia 06/22 stable, HGB is 9.1 today, continue iron, and lab monitor 06/21 improved. today her HGB is 9.1, continue iron, and lab monitor Now her HGB is 7.7. hold any blood thinner. continue lab monitor, since pt's daughter decline to have further workup or blood transfusion. Dyspnea 06/22 resolved. pt did not present SOB today 06/21 improved for wheezing and dyspnea. pt did not present respiratory distress start treatment for pt's asthma as above. pt present mild SOB and mild wheezing. will order CXR, it seems pt has slight [id number] from hydration for her RADHA and dehydration. now pt has 97% sat on room air. reduced IVF to 75CC, and followup CXR, and rise pt's bed. Elevated troponin stable, twice troponin is around 25. EKG is NSR Counseling regarding goals of care 06/22 pt's daughter and son will come to hospital tomorrow morning, and will discuss care goal and care plan. pt is accepted by [facility] today. consult with palliative care, will transition to hospice care if pt continue deteriorate per pt's daughter's request Essential hypertension stable. Continues on metoprolol anorexia 06/22 pt refused to eat or eat very limited and a few bites. pt's daughter and sons were notified for pt's this situation. They previously requested hospice care, they requested to hold the hospice care. now they will come to hospital for discussion of care plan on tomorrow. 06/21 slightly improved. pt only ate a few bites on lunch and dinner. recommend pt followup with hospice as out-pt pt refuse to eat now. pt's PLOST state no tube replacement. pt's daughter request to transition to hospice if pt continue deteriorate.
--- NOTE | 2019-06-22 15:37 | CONSULTATION NOTE ---
Palliative Care Follow Up - Referral Referring Provider: Westley SHANNON Time of Visit: [id number] Referral setting: Hospitalized patient Referral Reason: FTT/Dementia with behavioral disturbanced - Information Sources Records reviewed: RN notes reviewed, Previous records reviewed History/Review of Systems obtained from: Caregiver Exam limitations: Clinical condition (patient confused/dementia unable to participate in exam) - History of Present Illness Update Brief HPI Update: this is a 89-year-old woman who was admitted on 06/19 after she was found by assisted living staff on the floor of her room, at that point in time they did not find any obvious injury, chest x-rays showed resolving pulmonary edema, head and cervical spine CT showed no hemorrhage or acute fractures. Patient is continued to be quite agitated and worsening, found to have a UTI, RADHA, dehydration and is being treated with antibiotics. She has been uncooperative with care, just taking a few bites, and becoming more more agitated and c onfused. She started with liquid stools yesterday, and on follow-up was found to have C. difficile positive stool. Given her acute decline, had been conversation regarding transitioning patient back to her original home, which is [place] per her daughter could provide support. The daughter was putting together a plan for transport, with a plan for her to take medevac on 06/26, with increased caregiving at [facility] until she arrived. Patient today presents quite fragile, failure to thrive, and worsening most likely transitioning to end-of-life event at this point in time. Goals have been to focus on comfort, and had originally discuss transition to hospice prior to the plan to return to [place]. She had improved briefly in her numbers with rehydration, but not in her mental status or strength, and continued to refuse to eat and drink other than bites. Today on exam, she is quite agitated, wants to "go home". Her abdomen is soft, nontender, no hyperactive bowel tones. She does appear quite fatigued, she is having significant pain in her left hip on examination, when bending or repositioning cries out. At rest treat denies pain. Her right leg is able to move it without any cries in pain. Patient has been nonweightbearing, they did do a total lift to the chair for breakfast, but she remains quite agitated and striking out at caregivers. They have been trying to give her the oral vancomycin, and she has refused or spit it out. This was despite with some lorazepam to calm her down on board. Social History - Living Situation Living arrangement: Assisted living Support System: Patient unfortunately has her family in [place], her daughter returned last Wednesday after being here for the last fiasco of hospitalizations and patient's decline. The hope would been that patient would return to some level of functioning and support in her familiar environment of [facility], she had been there since February, though with the knowledge that patient's dementia was worsening and may need a transition plan to memory care unit. Unfortunately and transition planning this round, the goal been to find an appropriate hospice setting, but certainly given the concerns and financial stressors finding in appropriate setting was stressful, thus the decision to transition back to [place]. Medications/Allergies - Medications Active Medication List: Active Medications Budesonide (Pulmicort) 0.5 mg INH RTBID [facility] Last Admin: 06/22/19 07:32 Dose: 0.5 mg Ferrous Sulfate (Feosol) 325 mg PO BIDWM [facility] Last Admin: 06/22/19 07:59 Dose: Not Given Heparin Sodium (Porcine) () 2,500 unit SUBQ BID [facility] Last Admin: 06/22/19 09:13 Dose: Not Given Gentamicin Sulfate 320 mg/ (Sodium Chloride) 108 mls @ 100 mls/hr IV Q48H [facility] Potassium Chloride/Dextrose/Sod Cl (D5.45ns W/20 Meq Kcl) 1,000 mls @ 83.333 mls/hr IV .Q12H [facility] Last Admin: 06/22/19 12:17 Dose: 83.333 mls/hr Levalbuterol HCl (Xopenex) 1.25 mg INH Q4H PRN PRN Reason: Shortness of Air/Wheezing Lorazepam (Ativan Inj (Vial)) 0.5 mg IVP Q6H PRN PRN Reason: Anxiety Last Admin: 06/22/19 11:28 Dose: 0.5 mg Metoprolol Succinate (Toprol Xl) 12.5 mg PO BIDWM [facility] Last Admin: 06/22/19 09:11 Dose: Not Given Metoprolol Tartrate (Lopressor Inj) 5 mg IVP Q6H PRN PRN Reason: Tachycardia Mineral Oil (Cavilon) 1 applic TOP PRN PRN PRN Reason: Skin Care Montelukast Sodium (Singulair) 10 mg PO QPM [facility] Last Admin: 06/21/19 20:51 Dose: Not Given Morphine Sulfate (Roxanol) 5 mg PO Q4HR PRN PRN Reason: PAIN Prednisone (Deltasone) 20 mg PO DAILYWM [facility] Saccharomyces Boulardii (Florastor) 250 mg PO BIDWM [facility] Last Admin: 06/22/19 09:10 Dose: Not Given Sodium Chloride (Normal Saline Flush 0.9%) 10 ml IVP PRN PRN PRN Reason: NEEDED PER PROVIDER ORDERS Last Admin: 06/22/19 12:07 Dose: 10 ml Sodium Chloride (Normal Saline Flush 0.9%) 10 ml IVP 0100,0900,1700 [facility] Last Admin: 06/22/19 09:09 Dose: Not Given Vancomycin HCl (Vancocin) 125 mg PO QID [facility] Last Admin: 06/22/19 13:44 Dose: Not Given Brimonidine 0.2% Ophth Drops [Alphagan P 0.2% Ophth Drops] 1 drops EACHEYE BID 06/14/19 Dorzolamide/Timolol Ophth Soln [Cosopt] 1 drops EACHEYE BID 06/15/19 Latanoprost 0.005% Ophth Drops [Xalatan Ophth Drops] 1 drops EACHEYE QPM 06/15/19 Famotidine [Pepcid] 20 mg PO BID 06/19/19 Levalbuterol [Xopenex] 3 ml INH Q4H PRN 06/19/19 Metoprolol Succinate [Toprol Xl] 12.5 mg PO BIDWM 06/19/19 Spironolactone [Aldactone] 25 mg PO DAILY 06/19/19 - Allergies Allergies/Adverse Reactions: Allergies Allergy/AdvReac Type Severity Reaction Status Date / Time lisinopril Allergy Unknown Verified 06/19/19 07:21 tramadol Allergy Unknown Verified 06/19/19 07:21 Review of Systems - Constitutional Constitutional: reports: Poor appetite, Weight loss - Ears, Nose & Throat Ears, Nose & Throat: reports: Dry mouth - Respiratory Respiratory: reports: Cough (moisti), Wheezing, SOB at rest - Gastrointestinal Gastrointestinal: reports: Diarrhea, Other (refusing to eat). denies: Abdominal pain, Nausea, Vomiting - Genitourinary Genitourinary: reports: Other (jean catheter placed secondary to retention) - Musculoskeletal Musculoskeletal: reports: Back pain (chronic previous admits; had been on scheduled oxycodone, weaned off over hospitalization), Muscle weakness, Other (left leg pain with movement;) - Integumentary Integumentary: reports: Dryness, Other (multiple UE bruising with need for) - Neurological Neurological: reports: General weakness, Memory problems (worsening; agitation and delrium; some quieting with lorazepam) - Psychiatric Psychiatric: reports: Anxiety, Delusions, Aggitation, Behavior disturbances - Hematologic/Lymphatic Hematologic/Lymphatic: reports: Anemia, Recurrent infections (multiple antibiotics with hospitalizations) - All Other Systems All Other Systems: reports: Other (limited in patient's ability to participate) Physical Exam - Vital Signs Vital Signs: Vital Signs x48h Temp Pulse Pulse Pulse Resp BP BP 06/22/19 09:11 06/22/19 09:10 109 H 138/66 H 06/22/19 07:46 36.3 C L 106 H 24 112/82 H 06/22/19 07:34 100 24 Pulse Ox 06/22/19 09:11 100 06/22/19 09:10 06/22/19 07:46 97 06/22/19 07:34 - Physical Exam General Appearance: positive: Moderate distress, Anxious Eyes Bilateral: positive: Normal inspection ENT: positive: Dry mucous membranes Neck: positive: No JVD, Trachea midline Cardiovascular: positive: Tachycardia Respiratory: positive: Wheezes, Rhonchi, Other (moist cough) Abdomen: positive: Non-tender, Soft. negative: Distended Skin: positive: Pallor, Dryness, Bruising Extremities: positive: No pedal edema Neurologic/Psychiatric: positive: Disoriented to person, Disoriented to place, Disoriented to time, Weakness, Slurred/abnml speech, Depressed mood/affect, Flat affect Palliative Care - POLST Patient has POLST: Yes POLST Status: DNR, Selective Treatment Pain: Pain worsening, Location (left leg with movement) Performance Status: Patient is continued of functional status and decline, was able to ambulate short distances with her walker on discharge prior, then she had a fall. Since she has been here is only been able a full lift to chair for meals. Patient does not participate in bed mobility, does appear quite weak and fatigued. Patient cannot feed herself, and is refusing any assistance and only few bites with encouragement - Palliative Care Discussion: 12:00 noon. Call to daughter, to give her an update regarding her mother's decline. Introduced unfortunately the complication of her C. difficile, her refusing to take the medication, with oral being the only route that is known to be effective. Her worsening agitation and confusion, the fact she is not eating or drinking, and she does seem in a significant amount of distress. I also discussed her left leg pain, certainly could have had injury with fall, also has not been on any pain medication unclear if this is her underlying acute pain exacerbated as well. Given patient would not be a candidate is at this point in time given the goals of care for focus on comfort, I discussed transitioning just to comfort measures. Given the complexity of the C. difficile, most likely cannot return to [facility], that clinical staff particularly with a higher [employer]ITY OFF[employer]ER's, cannot give comfort medications and unlikely to be accepted at home place as well with active untreated C. difficile. That would leave the SNF, which she does understand would be $400 a day, though she was quoted respite stay, I will have to clarify if this is a appropriate as it is not caregiver relief. She does want her mother to be comfortable, these have been consistent decisions, we did discuss transition again back with hospice as the goal on discharge, she would not be in any condition to be able to be medvac back. She does understand this and will cancel those plans, she is going to talk to her brothers she has one in [place] and one in [place], to confirm and agreement with comfort measures moving forward, she does not want her mom to continue suffering. She does understand that she is looking at hours to days, and will follow-up after she has conversation with her brothers. 1715 Communication with daughter, via email secondary to traveling on bus to [facility]. She is catching up with her brother and they are driving down with the hope to be here on Wednesday morning. Did clarify she still wants focus on comfort measures, but would like to continue the fluids and antibiotics until they get here. Did give her MIRTHA Bardales's number for follow-up as well 's updated Dr. Skelton who is willing to meet with daughter and son on arrival. POLST will need to be updated to comfort measures, hospice is available for admit, pending decision about where to place patient. Results - Lab Results Lab results reviewed: Yes Fish Bones: 06/22/19 08:04 06/22/19 06:10 Lab and Imaging Results: Lab Results x24hrs 06/22/19 06/22/19 06/22/19 Range/Units 08:04 06:10 06:10 WBC 10.2 (4.8-10.8) x10^3/uL RBC 4.20 (4.20-5.40) 10^6/uL Hgb 9.1 L (12.0-16.0) g/dL Hct 30.1 L (37.0-47.0) % MCV 71.7 L (81.0-99.0) fL MCH 21.7 L (27.0-31.0) pg MCHC 30.2 L (32.0-36.0) g/dL RDW 23.4 H (12.0-15.0) % Plt Count 324 (130-450) 10^3/uL MPV 9.3 (7.9-10.8) fL Neut # (Auto) 6.9 H (1.5-6.6) 10^3/uL Sodium 136 (135-145) mmol/L Potassium 3.8 (3.5-5.0) mmol/L Chloride 107 (101-111) mmol/L Carbon Dioxide 19 L (21-32) mmol/L Anion Gap 10.0 (6-13) BUN 7 (6-20) mg/dL Creatinine 1.2 H (0.4-1.0) mg/dL Estimated GFR (MDRD) 42 L (>89) Glucose 106 H (70-100) mg/dL Calcium 7.9 L (8.5-10.3) mg/dL Total Bilirubin 0.9 (0.2-1.0) mg/dL AST 31 (10-42) IU/L ALT 23 (10-60) IU/L Alkaline Phosphatase 45 (42-121) IU/L Total Protein 5.6 L (6.7-8.2) g/dL Albumin 2.7 L (3.2-5.5) g/dL Globulin 2.9 (2.1-4.2) g/dL Albumin/Globulin Ratio 0.9 L (1.0-2.2) Stl C. diff Tox B Gene (NEGATIVE) Last Dose Date Unknown Last Dose Time Unknown Random Gentamicin 9.2 ug/mL 06/22/19 Range/Units 05:15 WBC (4.8-10.8) x10^3/uL RBC (4.20-5.40) 10^6/uL Hgb (12.0-16.0) g/dL Hct (37.0-47.0) % MCV (81.0-99.0) fL MCH (27.0-31.0) pg MCHC (32.0-36.0) g/dL RDW (12.0-15.0) % Plt Count (130-450) 10^3/uL MPV (7.9-10.8) fL Neut # (Auto) (1.5-6.6) 10^3/uL Sodium (135-145) mmol/L Potassium (3.5-5.0) mmol/L Chloride (101-111) mmol/L Carbon Dioxide (21-32) mmol/L Anion Gap (6-13) BUN (6-20) mg/dL Creatinine (0.4-1.0) mg/dL Estimated GFR (MDRD) (>89) Glucose (70-100) mg/dL Calcium (8.5-10.3) mg/dL Total Bilirubin (0.2-1.0) mg/dL AST (10-42) IU/L ALT (10-60) IU/L Alkaline Phosphatase (42-121) IU/L Total Protein (6.7-8.2) g/dL Albumin (3.2-5.5) g/dL Globulin (2.1-4.2) g/dL Albumin/Globulin Ratio (1.0-2.2) Stl C. diff Tox B Gene POSITIVE A* (NEGATIVE) Last Dose Date Last Dose Time Random Gentamicin ug/mL Impression and Recommendations - Palliative Care Impression: This is an 89-year-old woman who has had a events, including multiple hospitalizations, with continued acute functional and cognitive decline. Now presents with severe UTI, and C. difficile. Given patient's poor intake, worsening cognitive status, and functional decline, focus to be on comfort. Palliative care to continue to work with clinical team and family to meet goals.Complicating factor will be following up on placement, if patient continues to acutely decline, she may be transitioning to end-of-life here at hospital. Recommendations/Counseling Done: 1. Dementia with behavioral disturbances. Patient with worsening agitation, multifactorial in origin, including hospital delirium, infectious process, poor intake, and severe anxiety. Would recommend regular dosing of lorazepam every 4-6 hours, to decrease patient's distress, alternating with intermittent haloperidol if worsening paranoia are and responsive to Lorazepam. 2. Acute on chronic pain. Patient does have long-term known chronic back pain, presents with signs and symptoms of pain in her left leg and hip. Recommend regular dosing of Roxanol or IV MS, for signs or symptoms of distress, if patient to transition to another setting, would benefit from fentanyl patch 12 mcg patch. 3. Advanced care planning. Awaiting final outcome of Melanie's conversation with her brother, for transition to full comfort measures. Currently receiving still IV fluids, and antibiotics. She does not want her mom suffering, and her agitation anxiety is definitely symptoms of suffering as well as her signs and symptoms of pain. He still can aggressively manage her for comfort, will await final outcome for decision for discontinuing IV fluids and antibiotics and comfort feedings only. Patient most likely no matter which course goes, is looking at prognosis of hours to days. Particular if she continues to refuse any kind of medications and or able to take food and fluids. Have staffed her with hospice medical accounting clerk, do have plan to transition to [facility] for EOL care if acceptable to family. Time Spent: 75 minutes with greater than 50% of this done in counseling and coordination of care with daughter regarding goals of care, and clinical staff. Reiterated with nursing staff goal is for patient to be comfortable, relieve suffering and distress, does not want her to be agitated or have any pain. We will follow-up with palliative care/hospice tomorrow when on arrival for transition plan.
[2019-06-22] MEDS: METOPROLOL 5 MG/5 ML VIAL IVP PRN (18:40)
[2019-06-22] MEDS: MONTELUKAST 10 MG TABLET PO SCH (20:06)
[2019-06-23] MEDS: SODIUM CHLORIDE FLUSH 0.9% 10 ML SYRINGE IVP SCH ×3 (00:22→16:39)
[2019-06-23] MEDS: D5.45NS W/20 MEQ KCL 1,000 ML IV SCH ×2 (00:30→12:08)
[2019-06-23] MEDS: LORazepam 2 MG/ML VIAL IVP PRN ×4 (04:07→23:34)
[2019-06-23 05:50] LABS: BASOPHILS % (AUTO) 0.4 %; EOSINOPHILS # (AUTO) 0.8 10^3/uL (0.0-0.7); EOSINOPHILS % (AUTO) 7.8 %; HGB - HEMOGLOBIN 9.2 g/dL (12.0-16.0); LYMPHOCYTES # (AUTO) 1.3 10^3/uL (1.5-3.5); LYMPHOCYTES % (AUTO) 12.7 %; MEAN CORPUSCULAR HEMOGLOBIN 21.5 pg (27.0-31.0); MEAN CORPUSCULAR HGB CONC 29.8 g/dL (32.0-36.0); MEAN CORPUSCULAR VOLUME 72.4 fL (81.0-99.0); MEAN PLATELET VOLUME 10.3 fL (7.9-10.8); MONOCYTES # (AUTO) 1.2 10^3/uL (0.0-1.0); MONOCYTES % (AUTO) 11.8 %; NEUTROPHILS # (AUTO) 6.9 10^3/uL (1.5-6.6); NEUTROPHILS % (AUTO) 66.2 %; PLT - PLATELET COUNT 336 10^3/uL (130-450); RED BLOOD COUNT 4.27 10^6/uL (4.20-5.40); RED CELL DISTRIBUTION WIDTH 23.7 % (12.0-15.0); WHITE BLOOD COUNT 10.4 x10^3/uL (4.8-10.8)
[2019-06-23 06:04] LABS: ALBUMIN 2.7 g/dL (3.2-5.5); ALBUMIN/GLOBULIN RATIO 0.9 (1.0-2.2); BILIRUBIN,TOTAL 0.6 mg/dL (0.2-1.0); CALCIUM 7.9 mg/dL (8.5-10.3); CREATININE 1.1 mg/dL (0.4-1.0); TOTAL PROTEIN 5.7 g/dL (6.7-8.2)
[2019-06-23 06:12] LABS: PLATELET ESTIMATE, MANUAL NORMAL (130-450,000) (NORMAL)
[2019-06-23] MEDS: METOPROLOL SUCCINATE 25 MG TABLET PO SCH ×3 (10:31→16:39)
[2019-06-23] MEDS: predniSONE 20 MG TABLET PO SCH ×2 (10:31→10:41)
[2019-06-23] MEDS: VANCOMYCIN 125 MG CAPSULE PO SCH ×5 (10:34→21:30)
[2019-06-23] MEDS: HEPARIN 5,000 UNIT/ML VIAL SUBQ SCH ×2 (10:34→21:28)
[2019-06-23] MEDS: FERROUS SULFATE 325 MG TABLET PO SCH ×2 (10:41→16:39)
[2019-06-23] MEDS: SACCHAROMYCES BOULARDII 250 MG CAPSULE PO SCH ×2 (10:42→16:39)
--- NOTE | 2019-06-23 12:43 | PROVIDER PROGRESS NOTE ---
Subjective - Prog Note Date Prog Note Date: 06/23/19 - Subjective Pt reports feeling: No change Subjective: pt is still confused as pt has hx of advanced dementia. pt still refused to take meds and did not eat her diet. pt still has small amount watery brown color diarrhea today morning. but pt refused to take oral Vancomycin. Pt's family did not come today morning, pt's daughter told me on yesterday phone call she will come to our hospital today morning. lead supply worker report pt's family changed the time, and will come to hospital at 6pm. pt has hx of advanced dementia and confused now. we need discuss pt's care plan with her family. Per palliative care provider's recommendation and conversation with pt's family, family still want IVF and antibiotics to treat pt now "Did clarify she still wants focus on comfort measures, but would like to continue the fluids and antibiotics until they get here." Current Medications - Current Medications Current Medications: Active Medications Ferrous Sulfate (Feosol) 325 mg PO BIDWM [facility] Last Admin: 06/23/19 10:41 Dose: Not Given Heparin Sodium (Porcine) () 2,500 unit SUBQ BID [facility] Last Admin: 06/23/19 10:34 Dose: 2,500 unit Gentamicin Sulfate 320 mg/ (Sodium Chloride) 108 mls @ 100 mls/hr IV Q48H [facility] Potassium Chloride/Dextrose/Sod Cl (D5.45ns W/20 Meq Kcl) 1,000 mls @ 83.333 mls/hr IV .Q12H [facility] Last Admin: 06/23/19 12:08 Dose: 83.333 mls/hr Levalbuterol HCl (Xopenex) 1.25 mg INH Q4H PRN PRN Reason: Shortness of Air/Wheezing Last Admin: 06/23/19 00:35 Dose: 1.25 mg Lorazepam (Ativan Inj (Vial)) 0.5 mg IVP Q6H PRN PRN Reason: Anxiety Last Admin: 06/23/19 12:08 Dose: 0.5 mg Metoprolol Succinate (Toprol Xl) 12.5 mg PO BIDWM [facility] Last Admin: 06/23/19 10:41 Dose: Not Given Metoprolol Tartrate (Lopressor Inj) 5 mg IVP Q6H PRN PRN Reason: Tachycardia Last Admin: 06/22/19 18:40 Dose: 5 mg Mineral Oil (Cavilon) 1 applic TOP PRN PRN PRN Reason: Skin Care Montelukast Sodium (Singulair) 10 mg PO QPM [facility] Last Admin: 06/22/19 20:06 Dose: Not Given Morphine Sulfate (Roxanol) 5 mg PO Q4HR PRN PRN Reason: PAIN Morphine Sulfate (Morphine (Carpuject)) 2 mg IVP Q2HR PRN PRN Reason: PAIN Prednisone (Deltasone) 20 mg PO DAILYWM [facility] Last Admin: 06/23/19 10:41 Dose: Not Given Saccharomyces Boulardii ([facility]astor) [facility] [place] Admin: 06/23/19 10:42 Dose: Not Given Sodium Chloride (Normal Saline Flush 0.9%) 10 ml IVP PRN PRN PRN Reason: NEEDED PER PROVIDER ORDERS Last Admin: 06/22/19 12:07 Dose: 10 ml Sodium Chloride (Normal Saline Flush 0.9%) 10 ml IVP 0100,0900,1700 [facility] Last Admin: 06/23/19 10:42 Dose: Not Given Vancomycin HCl (Vancocin) 125 mg PO QID [facility] Last Admin: 06/23/19 10:42 Dose: Not Given Brimonidine 0.2% Ophth Drops [Alphagan P 0.2% Ophth Drops] 1 drops EACHEYE BID 06/14/19 Dorzolamide/Timolol Ophth Soln [Cosopt] 1 drops EACHEYE BID 06/15/19 Latanoprost 0.005% Ophth Drops [Xalatan Ophth Drops] 1 drops EACHEYE QPM 0 Famotidine [Pepcid] 20 mg PO BID 06/19/19 Levalbuterol [Xopenex] 3 ml INH Q4H PRN 06/19/19 Metoprolol Succinate [Toprol Xl] 12.5 mg PO BIDWM 06/19/19 Spironolactone [Aldactone] 25 mg PO DAILY 06/19/19 Objective - Vital Signs/Intake & Output Vital Signs: Vital Signs x48h Temp Pulse Resp BP BP Pulse Ox 06/23/19 12:00 36.6 C 100 21 95 06/23/19 09:00 119/102 H 147/115 H Intake & Output: Intake & Output 01/14/20 01/15/20 01/16/20 01/17/20 23:59 23:59 23:59 23:59 Intake Total 3163.500 2190.311 032 6050.441 Output Total 1800 1400 2300 450 Balance 1363.500 790.650 -1395 1519.441 - Objective General Appearance: positive: Alert. negative: Lethargic Eyes Bilateral: positive: Normal inspection, PERRL, EOMI, No lid inflammation Eyes: OD Other ENT: positive: ENT inspection nml, Pharynx nml, No signs of dehydration. negative: Purulent nasal drainage Neck: positive: Nml inspection, Thyroid nml, No JVD, Trachea midline. negative: Thyromegaly, Lymphadenopathy (R), Lymphadenopathy (L), Stiff neck, Tracheal deviation Respiratory: positive: Chest non-tender, No respiratory distress. negative: Wheezes, Rales, Rhonchi Cardiovascular: positive: Regular rate & rhythm, No murmur, No gallop. negative: Irregularly irregular, Extrasystoles, Tachycardia, Bradycardia, JVD present, Systolic murmur, Diastolic murmur Peripheral Pulses: 2+ Radial (R), 2+ Radial (L), 2+ Dorsalis pedis (R), 2+ Dorsalis pedis (L) Abdomen: positive: Non-tender, No organomegaly, Nml bowel sounds, No distention. negative: Tenderness, Guarding, Rebound Skin: positive: Color nml, No rash, Warm, Dry. negative: Cyanosis, Diaphoresis, Pallor Extremities: positive: Non-tender, Nml appearance. negative: Calf tenderness, Javon's sign/cords Neurologic/Psychiatric: negative: Weakness, Sensory loss, Facial droop, Slurred/abnml speech - Lab Results Fish Bones: 06/23/19 05:25 06/23/19 05:25 Other Labs: Lab Results x24hrs 06/23/19 06/23/19 Range/Units 05:25 05:25 WBC 10.4 (4.8-10.8) x10^3/uL RBC 4.27 (4.20-5.40) 10^6/uL Hgb 9.2 L (12.0-16.0) g/dL Hct 30.9 L (37.0-47.0) % MCV 72.4 L (81.0-99.0) fL MCH 21.5 L (27.0-31.0) pg MCHC 29.8 L (32.0-36.0) g/dL RDW 23.7 H (12.0-15.0) % Plt Count 336 (130-450) 10^3/uL MPV 10.3 (7.9-10.8) fL Neut # (Auto) 6.9 H (1.5-6.6) 10^3/uL Lymph # (Auto) 1.3 L (1.5-3.5) 10^3/uL [place] # (Auto) 1.2 H (0.0-1.0) 10^3/uL Eos # (Auto) 0.8 H (0.0-0.7) 10^3/uL Baso # (Auto) 0.0 (0.0-0.1) 10^3/uL Absolute Nucleated RBC 0.00 x10^3/uL Nucleated RBC % 0.0 /100WBC Manual Slide Review Indicated Platelet Estimate NORMAL (130-450,000) (NORMAL) RBC Morph Micro Appear 1+ SCHISTOCYTES (NORMAL) Sodium 135 (135-145) mmol/L Potassium 3.7 (3.5-5.0) mmol/L Chloride 107 (101-111) mmol/L Carbon Dioxide 20 L (21-32) mmol/L Anion Gap 8.0 (6-13) BUN 5 L (6-20) mg/dL Creatinine 1.1 H (0.4-1.0) mg/dL Estimated GFR (MDRD) 47 L (>89) Glucose 114 H (70-100) mg/dL Calcium 7.9 L (8.5-10.3) mg/dL Total Bilirubin 0.6 (0.2-1.0) mg/dL AST 20 (10-42) IU/L ALT 20 (10-60) IU/L Alkaline Phosphatase 44 (42-121) IU/L Total Protein 5.7 L (6.7-8.2) g/dL Albumin 2.7 L (3.2-5.5) g/dL Globulin 3.0 (2.1-4.2) g/dL Albumin/Globulin Ratio 0.9 L (1.0-2.2) ABX Reporting Has patient been on IV antibiotics over the past 48 hours?: Yes Sepsis Event Note (H) - Evaluation Current Stage of Sepsis: Ruled out Assessment/Plan - Problem List (1) C. difficile diarrhea Impression: 06/23 pt refused to take oral Vancomycin, pt still had diarrhea at the morning. pt's family will come to 6pm and will discuss the care plan. [facility] already accepted pt. if pt's family agree, pt would be [facility]. pt was found to have C.Diff positive. pt was reported she had one diarrhea at this morning with loose brown color stool. pt is started with PO Vancomycin. but pt refused to take her meds, it is likely from his dementia and confusion as her baseline, it is unlikely pt has acute delirium. continue IVF of with D5 06/08 NS continue lab monitor, and vital monitor fever 06/23 resolved. blood culture is negative for bacteremia. continue IVF until pt's family come to discuss pt's care plan, possible d/c IVF for comfortable measure only 06/22 pt has no more fever on last night, blood culture is pending. WBC is in the normal arrange. CXR reveals unremarkable for acute finding. it is likely from her UTI continue antibiotics Gentamicin continue IVF 06/21 pt has fever at 38.1. pt has UTI. UA culture reveal today pt has two bacterial: citrobacter farmeri, and staph lentus, both are high resistance to many antibiotics. Gentamicin is sensitive to both bacteria. pt was treated with Rocephin on yesterday, which pt's bacteria might resistance to Rocephin. start on Gentamicin per pharmacy for dosage order blood culture continue IVF UTI 06/23 continue antibiotics treatment until pt's family come 06/22 continue antibiotics 06/21 UA culture reveal today pt has two bacterial: citrobacter farmeri, and staph lentus, both are high resistance to many antibiotics. Gentamicin is sensitive to both bacteria. pt was treated with Rocephin on yesterday, which pt 's bacteria might resistance to Rocephin. RADHA 06/23 continue improved, creatinine 1.1 today. 06/22 improved, creatinine is 1.2, continue IVF, and lab monitor 06/21 continue improved to 1.3. reduced IVF to 75 cc/h, continue lab monitor improved, creatinine is 1.7 today from 2.7 at the admission (Baseline serum creatinine was 1.3). it is likely from pt's dehydration and lack of oral eating. pt's creatinine was 1.5 on 06/16/2019 but she had 2.7 at the re-admission at 06/19/2019 plan: continue IVF of D5 1/2 NS at lower rate because of pt's SOB lab monitor Fall Unwitnessed fall, found in room by staff after the patient failed to come down for breakfast, No obvious physical injury was found. Head/neck imaging was negative in the ED. pt has hx of advanced dementia order Orthostatic check, fall precaution. wheezing with hx of asthma 06/22 resolved wheezing lung sound. pt has 100% sat on room air reduced prednisone to 20 mg daily, continue albuterol PRN, pulmocort, single treatment 06/21 pt present wheezing, CXR reveals asthma as her hx. pt has 97% sat on room air. pt did not present respiratory distress continue Xopenex, start with pulmocort, singular start lower dosage of prednisone provide O2 as needed dementia with confusion 06/22 pt continue confusion with agitation. pt is given once Haldol to calm down her agitation. pt has advanced dementia. CT of head was unremarkable. Now pt has UTI. treat underline infection with antibiotics iron deficiency of Anemia 06/22 stable, HGB is 9.1 today, continue iron, and lab monitor 06/21 improved. today her HGB is 9.1, continue iron, and lab monitor Now her HGB is 7.7. hold any blood thinner. continue lab monitor, since pt's daughter decline to have further workup or blood transfusion. Dyspnea 06/23 pt refused to take meds, but her respiratory is stable now. 06/22 resolved. pt did not present SOB today 06/21 improved for wheezing and dyspnea. pt did not present respiratory distress start treatment for pt's asthma as above. pt present mild SOB and mild wheezing. will order CXR, it seems pt has slight [id number] from hydration for her RADHA and dehydration. now pt has 97% sat on room air. reduced IVF to 75CC, and followup CXR, and rise pt's bed. Elevated troponin stable, twice troponin is around 25. EKG is NSR Counseling regarding goals of care 06/22 pt's daughter and son will come to hospital tomorrow morning, and will discuss care goal and care plan. pt is accepted by [facility] today. consult with palliative care, will transition to hospice care if pt continue deteriorate per pt's daughter's request Essential hypertension stable. Continues on metoprolol anorexia 06/23 pt still refused to eat diet. will discuss with pt's family for comfortable care and hospice care. 06/22 pt refused to eat or eat very limited and a few bites. pt's daughter and sons were notified for pt's this situation. They previously requested hospice care, they requested to hold the hospice care. now they will come to hospital for discussion of care plan on tomorrow. 06/21 slightly improved. pt only ate a few bites on lunch and dinner. recommend pt followup with hospice as out-pt pt refuse to eat now. pt's PLOST state no tube replacement. pt's daughter request to transition to hospice if pt continue deteriorate.
[2019-06-23] MEDS ORDERED: MORPHINE 2 MG/ML CARPUJECT IVP PRN (13:06)
[2019-06-23] MEDS: METOPROLOL 5 MG/5 ML VIAL IVP PRN (19:05)
[2019-06-23] MEDS ORDERED: GENTAMICIN 320 MG in SODIUM CHLORIDE 0.9% 100ML 100 ML IV SCH (20:00)
[2019-06-23] MEDS: MONTELUKAST 10 MG TABLET PO SCH (21:29)
[2019-06-24] MEDS: D5.45NS W/20 MEQ KCL 1,000 ML IV SCH (01:26)
[2019-06-24] MEDS: SODIUM CHLORIDE FLUSH 0.9% 10 ML SYRINGE IVP SCH (01:26)
[2019-06-24 05:28] LABS: BASOPHILS % (AUTO) 0.6 %; EOSINOPHILS % (AUTO) 11.5 %; HGB - HEMOGLOBIN 9.4 g/dL (12.0-16.0); LYMPHOCYTES % (AUTO) 14.5 %; MEAN CORPUSCULAR HEMOGLOBIN 21.8 pg (27.0-31.0); MEAN CORPUSCULAR HGB CONC 30.3 g/dL (32.0-36.0); MEAN CORPUSCULAR VOLUME 71.9 fL (81.0-99.0); MEAN PLATELET VOLUME 10.4 fL (7.9-10.8); MONOCYTES % (AUTO) 11.7 %; NEUTROPHILS % (AUTO) 60.7 %; PLT - PLATELET COUNT 367 10^3/uL (130-450); RED BLOOD COUNT 4.31 10^6/uL (4.20-5.40); RED CELL DISTRIBUTION WIDTH 23.5 % (12.0-15.0); WHITE BLOOD COUNT 10.8 x10^3/uL (4.8-10.8)
[2019-06-24 05:52] LABS: ALBUMIN 2.8 g/dL (3.2-5.5); ALKALINE PHOSPHATASE 44 IU/L (42-121); ALT ALANINE AMINOTRANSFERASE 31 IU/L (10-60); AST ASPARTATE AMINOTRANSFERASE 63 IU/L (10-42); BILIRUBIN,TOTAL 0.8 mg/dL (0.2-1.0); BUN - BLOOD UREA NITROGEN < 5 mg/dL (6-20); CALCIUM 8.1 mg/dL (8.5-10.3); CARBON DIOXIDE - CO2 18 mmol/L (21-32); CHLORIDE 109 mmol/L (101-111); CREATININE 1.1 mg/dL (0.4-1.0); GFR - MDRD 47 (>89); GLUCOSE 112 mg/dL (70-100); SODIUM 135 mmol/L (135-145); TOTAL PROTEIN 5.6 g/dL (6.7-8.2)
[2019-06-24 06:37] LABS: ABNORMAL LYMPHS % (MANUAL) 0 %; BAND NEUTROPHILS % (MANUAL) 0 %
[2019-06-24 06:39] LABS: EOSINOPHILS # (MANUAL) 1.6 10^3/uL (0-0.7); LYMPHOCYTES # (MANUAL) 1.8 10^3/uL (1.5-3.5); LYMPHOCYTES % (MANUAL) 17 %; MONOCYTES # (MANUAL) 1.2 10^3/uL (0.0-1.0)
[2019-06-24 06:40] LABS: DIFFERENTIAL COMMENT MANUAL DIFFERENTIAL; PLATELET ESTIMATE, MANUAL NORMAL (130-450,000) (NORMAL); PLATELET MORPHOLOGY NORMAL APPEARANCE (NORMAL)
[2019-06-24 07:49] VITALS: BP 144/122
--- NOTE | 2019-06-24 08:28 | Discharge Plan ---
"Discharge Plan for SNF / [facility]ANA - Discharge Plan And Transition Orders Problem Reviewed?: Yes Disposition: 03 SNF DC/Xfer Condition: Stable Allergies and Adverse Reactions: Allergies Allergy/AdvReac Type Severity Reaction Status Date / Time lisinopril Allergy Unknown Verified 06/19/19 07:21 tramadol Allergy Unknown Verified 06/19/19 07:21 Health Concerns: Comfort cares C diff infection Symptom management Hospice care Plan of Treatment: Proceed with Hospice care with Dr. Skelton at [facility] Care Goals: Control symptoms Assessment: The patient was admitted for RADAH, given IV fluids. She was found to have a UTI, ongoing diarrhea which was treated with oral vanco since a sample was + for c diff. Due to progressive disease progression, dementia, and falls, family decided that Hospice care is the best choice. No further treatment of C diff or UTI since Hospice care. - SNF / CUSTODIAL Transition Orders Admit to (Facility): [facility] Under the care of (Name): Dr. Skelton-Hospice Discharge Diagnosis: C. difficile diarrhea Fever UTI (urinary tract infection) Fall Elevated troponin Diastolic dysfunction with chronic heart failure Pulmonary hypertension HTN (hypertension) Anorexia Uremic encephalopathy RADHA (acute kidney injury) Dyspnea on exertion Acute respiratory failure with hypoxia Dehydration PVD (peripheral vascular disease) DJD (degenerative joint disease), lumbar Narcotic dependence Alzheimer's dementia Incontinence Treatments & Other Orders: Maintain indwelling jean for comfort, give anti- diarrheals for comfort. Oxygen Orders: 1-3L per nasal cannula to keep oxygen greater than 90% or for comfort to be managed by Hospice service. Medication Orders: PLEASE REFER TO THE DISCHARGE MEDICATION LIST - Medications New Prescriptions: Diphenoxylate/Atropine [Lomotil] 1 each PO QID PRN #90 tablet PRN Reason: Diarrhea fentaNYL 12 MCG PATCH [Duragesic 12mcg patch] 12 mcg TOP Q3D #2 patch LORazepam [Lorazepam INTENSOL] 2 mg PO Q4H PRN #30 ml PRN Reason: Anxiety Morphine Sulfate [Morphine Sulf Oral (Roxanol)] 10 mg PO Q1H PRN #30 ml PRN Reason: Pain/Dyspnea - Diet Type: Geriatric Texture: Regular Liquids: Thin May have monthly special meal: Yes - Therapies | Activity Activity: Comfort care orders per Hospice"
[2019-06-24] MEDS: FERROUS SULFATE 325 MG TABLET PO SCH (08:41)
[2019-06-24] MEDS: SACCHAROMYCES BOULARDII 250 MG CAPSULE PO SCH (09:10)
[2019-06-24] MEDS: VANCOMYCIN 125 MG CAPSULE PO SCH (09:10)
[2019-06-24] MEDS: METOPROLOL SUCCINATE 25 MG TABLET PO SCH (09:10)
[2019-06-24 09:16] LABS: HGB - HEMOGLOBIN 10.5 g/dL (12.0-16.0); MEAN CORPUSCULAR HEMOGLOBIN 20.9 pg (27.0-31.0); MEAN CORPUSCULAR HGB CONC 28.1 g/dL (32.0-36.0); MEAN CORPUSCULAR VOLUME 74.4 fL (81.0-99.0); MEAN PLATELET VOLUME 10.1 fL (7.9-10.8); NEUTROPHILS # (AUTO) 6.9 10^3/uL (1.5-6.6); RED BLOOD COUNT 5.03 10^6/uL (4.20-5.40); RED CELL DISTRIBUTION WIDTH 23.9 % (12.0-15.0); WHITE BLOOD COUNT 11.1 x10^3/uL (4.8-10.8)
[2019-06-24] MEDS ORDERED: fentaNYL 12 MCG PATCH TOP SCH (12:00)
--- NOTE | 2019-06-24 13:04 | DISCHARGE SUMMARY ---
"Discharge Summary Admit Date: 06/19/19 Discharge Date: 06/24/19 Discharging Provider: MIRTHA Butler Primary Care Provider: Dr. Skelton Code Status: Do Not Attempt Resuscitation Condition at Discharge: Stable Discharge Disposition: 50 Hospice/Home DC/Xfer Discharge Facility Name: [facility] - DIAGNOSES Admission Diagnoses: Uremic encephalopathy RADHA (acute kidney injury) Fall Dyspnea on exertion Acute respiratory failure with hypoxia Anemia Elevated troponin Dehydration Diastolic dysfunction with chronic heart failure Pulmonary hypertension PVD (peripheral vascular disease) DJD (degenerative joint disease), lumbar Narcotic dependence Alzheimer's dementia Incontinence Discharge Diagnoses with Status of Each Condition: C. difficile diarrhea- New on this admission, started on oral vanco, but patient non-compliant, no longer treated due to a progression to comfort cares only Fever-Resolved UTI (urinary tract infection)- No longer treated due to a progression of comfort cares Fall-Chronic, fall risk Elevated troponin- Resolved, no interventions indicated Diastolic dysfunction with chronic heart failure-Chronic, stable, no further treatment Pulmonary hypertension-Chronic, stable, no further treatment HTN (hypertension)-Chronic, stable, no further treatment Anorexia-Chronic, stable, no further treatment Uremic encephalopathy-Resolved RADHA (acute kidney injury)-Improved, no further treatment Dyspnea on exertion-Chronic, stable, no further treatment Acute respiratory failure with hypoxia-Ongoing, oxygen as tolerated for comfort Dehydration-Chronic, stable, no further treatment PVD (peripheral vascular disease)-Chronic, stable, no further treatment DJD (degenerative joint disease), lumbar-Chronic, stable, no further treatment Narcotic dependence-Chronic, stable, no further treatment Alzheimer's dementia-Chronic, stable, no further treatment Incontinence-Chronic, stable, no further treatment Anemia-Chronic, stable - HPI History of Present Illness: Janet Nicole is a pleasant 89-year old female with a past medical history of essential hypertension, saddle PE, hyperlipidemia, osteoporosis, PVD, polymyalgia rheumatica, diverticular disease, lumbar DJD, restless leg syndrome, headaches, GERD, urinary and stool incontinence, dementia, RADHA, anemia, stool heme positive, and emphysema COPD. The patient was just discharged on Wednesday (06/16/2019) back to [facility] with a higher level of care in which the staff would administer medications and do more frequent checks. She has been living at [facility] since February of 2019. [facility] staff reported she did not come down for breakfast, so staff went to her room to check on her. The patient was found by staff on the floor of her room without obvious physical injury. Staff reported to EMS that she was in the bed 2 hours prior. Upon arrival to the ED, the patient did not complain of pain, and was in a c collar. Labs showed an elevated WBC count of 12.8, Hct 9.0, Hct 30.3, MCV 72.3, neut # 9.3, sodium 140, potassium 4.1, carbon dioxide 19, anion gap 16.0, BUN 53, creatinine 2.7, GFR 17, AST 46, total protein 6.2, elevated troponin 23.7, elevated BNP 155, & an elevated lipase of 66. A chest x-ray showed resolving pulmonary edema. A head & cervical spine CT showed no hemorrhage or acute fractures. The patient is being admitted to for RADHA, and respiratory care. The patients daughter was called to speak about re-admission and the fact that her mother will need a higher level of care with 24-hour supervision. - CONSULTS | PROCEDURES Consultations: Hospice consult-Dr. Skelton - HOSPITAL COURSE Hospital Course: The patient was admitted for RADHA, given IV fluids. She was found to have a UTI, ongoing diarrhea which was treated with oral vanco since a sample was + for c diff. Due to progressive disease progression, dementia, and falls, family decided that Hospice care is the best choice. No further treatment of C diff or UTI since Hospice care. - ALLERGIES Allergies/Adverse Reactions: Allergies Allergy/AdvReac Type Severity Reaction Status Date / Time lisinopril Allergy Unknown Verified 06/19/19 07:21 tramadol Allergy Unknown Verified 06/19/19 07:21 - MEDICATIONS Home Medications: Ambulatory Orders Medication Instructions Recorded Confirmed Levalbuterol [Xopenex] 3 ml INH Q4H PRN 06/19/19 06/21/19 Metoprolol Succinate [Toprol Xl] 12.5 mg PO BIDWM 06/19/19 06/21/19 Diphenoxylate/Atropine [Lomotil] 1 each PO QID PRN #90 tablet 06/24/19 LORazepam [Lorazepam INTENSOL] 2 mg PO Q4H PRN #30 ml 06/24/19 Morphine Sulfate [Morphine Sulf 10 mg PO Q1H PRN #30 ml 06/24/19 Oral (Roxanol)] fentaNYL 12 MCG PATCH [Duragesic 12 mcg TOP Q3D #2 patch 06/24/19 12mcg patch] - PHYSICAL EXAM AT DISCHARGE General Appearance: positive: Alert, Moderate distress, Lethargic Eyes Bilateral: positive: No lid inflammation ENT: positive: Pharyngeal erythema, Dry mucous membranes Neck: positive: Trachea midline, Stiff neck Respiratory: positive: Chest non-tender, No respiratory distress, Wheezes, Rhonchi Cardiovascular: positive: Regular rate & rhythm, Tachycardia, JVD present, Systolic murmur, Decreased pulse(s) Peripheral Pulses: positive: 1+ Abdomen: positive: Non-tender, Nml bowel sounds, Other (rounded, soft) Back: positive: Nml inspection Skin: positive: No rash, Warm, Dry, Cyanosis (fingertips-intermittently), Pallor Extremities: positive: Non-tender, Pedal edema, Joint swelling Neurologic/Psychiatric: positive: Disoriented to person, Disoriented to place, Disoriented to time, Weakness, Sensory loss, Slurred/abnml speech, Depressed mood/affect, Other (baseline dementia) Reflexes: Bicep (R): 3+, Bicep (L): 3+ - LABS Result Diagrams: 06/24/19 09:06 06/24/19 05:05 - SEPSIS Current Stage of Sepsis: Ruled out - FOLLOW UP Follow Up: Not required, Hospice to care for patient. - TIME SPENT Time Spent in Discharge (Minutes): 65"
== END 2019-06-24 13:01 | disposition hospice, inpatient (51) | DRG 70 ==
LOC: EDUNIT# → ED 07:12 → MS2 09:21
PROVIDERS: ADMIT Nurse Practitioner; ATTEND Nurse Practitioner
DX: G93.49 Other encephalopathy (principal); D64.9 Anemia, unspecified; E87.2 Acidosis; J96.01 Acute respiratory failure with hypoxia; E78.00 Pure hypercholesterolemia, unspecified; R01.1 Cardiac murmur, unspecified; J44.9 Chronic obstructive pulmonary disease, unspecified; I26.92 Saddle embolus of pulmonary artery without acute cor pulmonale; N17.9 Acute kidney failure, unspecified; F11.20 Opioid dependence, uncomplicated; A04.72 Enterocolitis due to Clostridium difficile, not specified as recurrent; N39.0 Urinary tract infection, site not specified; F02.81 Dementia in other diseases classified elsewhere, unspecified severity, with behavioral disturbance; Z16.30 Resistance to unspecified antimicrobial drugs; E86.0 Dehydration; G30.9 Alzheimer's disease, unspecified; D50.9 Iron deficiency anemia, unspecified; M54.9 Dorsalgia, unspecified; R53.83 Other fatigue; R63.0 Anorexia; Z79.891 Long term (current) use of opiate analgesic; I11.0 Hypertensive heart disease with heart failure; I50.9 Heart failure, unspecified; I27.20 Pulmonary hypertension, unspecified; J43.9 Emphysema, unspecified; I73.9 Peripheral vascular disease, unspecified; Z68.24 Body mass index [BMI] 24.0-24.9, adult; M47.816 Spondylosis without myelopathy or radiculopathy, lumbar region; K21.9 Gastro-esophageal reflux disease without esophagitis; K52.9 Noninfective gastroenteritis and colitis, unspecified; R15.9 Full incontinence of feces; R32 Unspecified urinary incontinence; R35.0 Frequency of micturition; R35.1 Nocturia; M81.0 Age-related osteoporosis without current pathological fracture; M35.3 Polymyalgia rheumatica; E78.5 Hyperlipidemia, unspecified; G25.81 Restless legs syndrome; R79.89 Other specified abnormal findings of blood chemistry; H54.7 Unspecified visual loss; H91.90 Unspecified hearing loss, unspecified ear; I25.10 Atherosclerotic heart disease of native coronary artery without angina pectoris; I48.91 Unspecified atrial fibrillation; G62.9 Polyneuropathy, unspecified; R25.1 Tremor, unspecified; F41.9 Anxiety disorder, unspecified; G89.29 Other chronic pain; F17.210 Nicotine dependence, cigarettes, uncomplicated; R26.89 Other abnormalities of gait and mobility; R47.81 Slurred speech; F32.9 Major depressive disorder, single episode, unspecified; K57.90 Diverticulosis of intestine, part unspecified, without perforation or abscess without bleeding; M47.812 Spondylosis without myelopathy or radiculopathy, cervical region; M25.552 Pain in left hip; M79.605 Pain in left leg; B95.7 Other staphylococcus as the cause of diseases classified elsewhere; B96.89 Other specified bacterial agents as the cause of diseases classified elsewhere; Z66 Do not resuscitate; Z51.5 Encounter for palliative care; R29.6 Repeated falls; Z79.52 Long term (current) use of systemic steroids; Z91.81 History of falling; Z87.19 Personal history of other diseases of the digestive system; Z86.711 Personal history of pulmonary embolism
CPT/HCPCS: 36415; 51701; 70450; 71045; 72125; 80048; 80053; 80170; 81001; 82550; 82607; 82728; 83540; 83615; 83690; 83735; 83880; 84466; 84484; 85014; 85018; 85025; 85027; 85045; 87040; 87077; 87086; 87181; 87493; 93005; 94640; 99233; 99285; A6250; A9270; J2060; J3490; J7512; J7626; J8499; 81003; 82272

== ENCOUNTER 2019-06-24 12:58 | Outpatient (CLI) | payer MEDICARE | END 2019-06-24 12:59 | disposition hospice, inpatient (51) | LOC: EMS 12:58 | PROVIDERS: ATTEND Surgery | DX: N39.0 Urinary tract infection, site not specified (principal); F03.90 Unspecified dementia, unspecified severity, without behavioral disturbance, psychotic disturbance, mood disturbance, and anxiety; N17.9 Acute kidney failure, unspecified | CPT/HCPCS: A0425; A0428 ==